=== PATIENT | female | born 2005 | race Caucasian/White ===

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

== ENCOUNTER 2025-03-15 08:13 | Outpatient (OUT) | payer OTHER, SELFPAY ==
--- OUTSIDE RECORDS SUMMARY | 2025-03-07 08:45 | XMS_ITS | Encounter Summary ---
Author Organization [employer] [facility] tem Address [id number] [address] [place] [address] Care Team Providers Care Chemical Analytical Sampler Name Role Phone Maggie Marlow MD Primary Care Provider + [phone] Reason for Visit * Reason Comments Routine Visit Encounter Details Date Type Department Care Team ([facility] st Contact Info) Description 03/07/2025 8:45 AM EDT Routine [facility] [address] [place] [id number] Shyann Lopez MD [address] [place] [id number] GA: 38w6d Social History Tobacco Use Types Packs/Day Years Used Date Smoking Tobacco: Never Passive Smoke Exposure: Yes Smokeless Tobacco: Never Alcohol Use Standard Drinks/Week Comments Never 0 (1 standard drink = 0.6 oz pur e alcohol) Childcare Answer Date Recorded Childcare Unknown 01/11/2019 Employment Answer Date Recorded Employment Unknown 01/11/2019 Hunger Screening Answer Date Recorded Within the past 12 months we worried whether our food would run out before we got money to buy more. Never True 03/07/2025 Within the past 12 months th e food we bought just didn't last and we didn't have money to get more. Never True 03/07/2025 Purpose - Life Answer Date Recorded Purpose and direction in life Unknown Comments Yes Sex and Gender Information Value Date Recorded Sex Assigned at Not on file Legal Sex Female 6:56 PM EDT Gender Identity Not on file Sexual Orientation Not on file documented as of this encounter Last Filed Vital Signs Vital Sign Reading Time Taken Comments Blood Pressure 122/68 03/07/2025 8:33 AM EDT Pulse - - Temperature - - Respiratory Rate - - Oxygen Saturation - - Inhaled Oxygen Concentration - - Weight 89.9 kg (198 lb 3.2 oz) 03/07/2025 8:33 A M EDT Height - - Body Mass Index 34 01/23/2025 1:48 PM EDT documented in this encounter Progress Notes * Shyann Lopez MD - 03/07/2025 8:45 AM EDT [facility] High Risk Obstetrics Visit Return OB CC: Scheduled OB Visit None Problem List Active Problems Cleft lip and palate, , affecting care of mother, antepartum, single gestation Overview Sent to [facility] craniofacial -NICU consult scheduled for 02/07/25- done -Growth US every 4 weeks - Growth 01/23/25: cephalic, posterior placenta, MVP 3.8cm, EFW 1813g (15%), AC 13% - growth 02/21/25: vertex, MVP 4.6cm, EFW 24% Delivery 39-40 weeks care, subsequent in third trimester - Primary Overview Transfer from [place] Initial and 28 week cbc, one hr gct completed Good FM. Denies Bleeding, SROM. Irregular contractions Denies persistent N/V, constipation, heartburn, hematuria, dysuria Problem List reviewed and updated PMH/PSH/FH/Soc/Meds/Allergies Reviewed PE BP 122/68 Wt 89.9 kg (198 lb 3.2 oz) LMP 05/27/2024 BMI 34.00 kg/m?? Alert, NAD ABdomen: Soft, NT, nondistended Cervix: 0/thick/-3 Cordwainer: Devora Wt Readings from Last 3 Encounters: 02/28/25 89.6 kg (197 lb 8 oz) (97%, Z= 1.90)* 02/21/25 87.1 kg (192 lb) (96%, Z= 1.81)* 02/07/25 86.8 kg (191 lb 6.4 oz) (96%, Z= 1.80)* * Growth percentiles are based on CDC (Girls, 2-20 Years) data. See flowsheet Urine dipstick shows Protein N Glucose N Imp/Plan at 38w5d Patient Active Problem List Diagnosis Cleft lip and palate, , affecting care of mother, antepartum, single gestation care, subsequent in third trimester Elevated blood-pressure reading without diagnosis of hypertension care Labor warnings/ Movement discussed cleft lip/palate Serial growth scans--completed For IOL at 39 weeks ([place]) Form completed and process discussed. Note to patient: The Cures Act makes medical notes like these available to patients inthe interest of transparency. However, be advised this is a medical document. It is intended as peer to peer communication. It is written in medical language and may contain abbreviations or verbiagethat are unfamiliar. It may appear blunt or direct. Medical documents are intended to carry relevant information, facts as evident, and the clinical opinion of the practitioner. * Devora Hanna RN - 03/07/2025 8:45 AM EDT Patient here at 38w6d for routine HROB visit. Denies LOF, bleeding, contractions. Positive movement. SVE performed today. IOL scheduled for tomorrow 03/08 at 3pm. No other concerns this visit. Urine dip: moderate leuks documented in this encounter Plan of Treatment Upcoming Encounters Date Type Department Care Team (Late st Contact Info) Description 03/19/2025 2:30 PM EDT Visit [facility] [address] [place] [phone] Shyann Lopez MD [address] [facility] [place] [phone] documented as of this encounter Visit Diagnoses Diagnosis Cleft lip and palate, , affecting care of mother, antepartum, single gestation- Primary care, subsequent in third trimester documented in this encounter Care Teams Chemical Analytical Sampler Relationship Specialty Start Date End Date Maggie Marlow MD [address] [place] [address] PCP - General Pediatrics 12/09/23 documented as of this encounter
--- OUTSIDE RECORDS SUMMARY | 2025-03-08 21:48 | XMS_ITS | Encounter Summary ---
Author Organization Dahu tem Address [id number] [address] [place] [address] Care Team Providers Care Facilities Administrator Name Role Phone Maggie Marlow MD Primary Care Provider + [phone] Reason for Referral * Misc (Routine) - Pending Review Specialty Diagnoses / Procedures Referred By Contac t Referred To Contact Procedures Discharge Follow-Up Beatriz Madrigal DO [address] [address] Phone: tel: fax: Referral ID Status Reason Start Date Expiration Date V isits Requested Visits Authorized [id number] Pending Review 03/12/2025 03/12/2026 1 1 * Misc (Routine) - Pending Review Specialty Diagnoses / Procedures Referred By Contac t Referred To Contact Procedures Discharge Follow-Up Lennie Bell MD [address] [address] Phone: tel: fax: Referral ID Status Reason Start Date Expiration Date V isits Requested Visits Authorized [id number] Pending Review 03/11/2025 03/11/2026 1 1 Reason for Visit * Reason Comments Scheduled Induction * Auth/Cert (Routine) Specialty Diagnoses / Procedures Referred By Lori t Referred To Contact Diagnoses Encounter for induction of labor Sebastian Jorgensen MD [facility], [address] [place] [address] Phone: tel: fax: Referral ID Status Reason Start Date Expiration Date Visits Re quested Visits Authorized [id number] 1 1 Encounter Details Date Type Department Care Team (Latest Contact Info) Description 03/08/2025 9:48 PM EDT - 03/12/2025 4:50 PM EDT Hospital Encounter [facility] [address] [place] [id number] Sebastian Jorgensen MD [address] [place] [address], [address] [place], [place] [id number] Gestational hypertension, third trimester (Primary Dx) Discharge Disposition: Home Social History Tobacco Use Types Packs/Day Years [...] got money to buy more. Never True 03/12/2025 Within the past 12 months th e food we bought just didn't last and we didn't have money to get more. Never True 03/12/2025 Purpose - Life Answer Date Recorded Purpose and direction in life Unknown Comments No Sex and Gender Information Value Date Recorded Sex Assigned at Not on file Legal Sex Female 6:56 PM EDT Gender Identity Not on file Sexual Orientation Not on file documented as of this encounter Last Filed Vital Signs Vital Sign Reading Time Taken Comments Blood Pressure 118/73 03/12/2025 11:24 AM EDT Pulse 85 03/12/2025 11:24 AM EDT Temperature 36.8 C (98.2 F) 03/12/2025 11:24 AM EDT Respiratory Rate 16 03/12/2025 11:24 AM EDT Oxygen Saturation 99% 03/10/2025 7:30 AM EDT Inhaled Oxygen Concentration - - Weight 84.5 kg (186 lb 4.6 oz) 03/12/2025 12:00 AM EDT Height 162.6 cm (5' 4.02 ) 03/09/2025 7:00 AM ED T Body Mass Index 31.96 03/09/2025 7:00 AM EDT documented in this encounter Functional Status documented as of this encounter Discharge Instructions * Discharge Instructions* Danisha Humphries RN - 03/12/2025 4:22 PM EDT Discharge Instructions Vaginal Bleeding Vaginal drainage, lochia , will last 2-3 weeks after your baby was born Use the jack bottle filled with warm water each time you use the bathroom, pat dry. Continue this until your drainage stops. Always wipe from front to back after you urinate or have a bowel movement Change your sanitary pad every 2-4 hours Notify your doctor/CNM if you experience any of the following: Clots larger than a plum If you are saturating a jack pad greater than one pad an hour Any foul smelling vaginal drainage Abdominal Cramping Cramping gets stronger with each baby. You may try a heating pad Bathing/Showering Take a shower each day unless you were told not to To help with episiotomy discomfort you may sit in a clean tub of warm water Stitches in your perineum will dissolve over 6 weeks, for comfort you may: Use a sitz bath Jack bottle Dermoplast (use each time after jack care) Tucks (use each time after jack care) Tucks and Dermoplast spray may also help with hemorrhoid discomfort (use each time after jack care) Sexual [place] No tampons, douching, or sexual intercourse until after you see your doctor You may need to use a water-soluble lubricant such as KY Jelly for dryness Talk to your doctor/CNM regarding control and which method would be best for you Talk to your doctor/CNM regarding the use of a long acting, but reversible, control method It is recommended to space pregnancies apart by at least 18 months, this is for the safety of future outcomes Notify your doctor if you have: Any vaginal burning or itching Any burning or pain when urinating, or inability to urinate A temperature greater than 100.4 degrees Fahrenheit or severe chills Pain in calf or leg Nausea or vomiting, dizziness or fainting If you have not had a bowel movement in 5 days Diet: Drink 8-12 glasses of water each day Make sure you eat a balanced diet, especially high in fiber (whole grains, raw vegetables, etc.) If drink 8 oz. of liquid every time you nurse your baby Continue to take your vitamins as prescribed by your doctor Abdominal Incision / Tubal Ligation Care: Wash your incision with soap and water and be sure to rinse and dry well If you had orin they will be removed by your doctor/CNM If you had sutures they will dissolve on their own For ease of movement hold a pillow against the incision: When you get up from a lying or sitting position When you laugh or cough Notify your doctor/CNM for any of the following: Redness Drainage Open areas around your incision Breast Care: To help with discomfort: Feed your baby frequently to avoid engorgement Apply warm compresses to breast before feeding Apply cold compresses to breast after feeding Wear a supportive nursing bra 24 hours a day Do not put soap on your nipples Allow nipples to air dry after feeding Bottle feeding: To help with discomfort: Use cold compresses Wear a tight fitting bra 24 hours a day Notify your doctor/CNM: For swelling, redness, or tenderness in one area of your breast Blues / Depression: Blues : Usually occurs within 3-5 days after delivery Normally goes away on its own Depression: Can also occur within days of delivery, or within a year Warning Signs: Increased crying for no obvious reason Lack of patience Being irritable Being restless Not being able to sleep Not wanting to eat Anxiety Notify your doctor/CNM: If you experience any of the warning signs If you are having any violent thoughts If you are having thoughts of harming yourself or your baby Sibling / Family Adjustment: Each family member will take different amounts of time to adjust to the new baby Be patient and offer lots of love and comfort Offer some individual attention to other children Exercise / Activity: Get plenty of rest Take catnaps while baby is sleeping during the day No heavy cleaning or other housework for the first couple of weeks Lift nothing heavier than your baby for 2 weeks No driving for one week Do not drive while taking narcotics You may start walking and stretching in 2 weeks No strenuous exercises like jogging, aerobics, etc. until after you have seen your doctor/CNM You may start Kegel exercises now * Attachments The following attachments cannot be sent through Care Everywhere. * Vaginal ??? Discharge instructions (Italian) * Coping while caring for a (Italian) documented in this encounter Medications at Time of Discharge acetaminophen (TYLENOL EXTRA STRENGTH) 500 mg tablet Take 2 tablets (1,000 mg total) by mouth every 8 (eight) hours as needed for pain. 30 tablet 03/11/2025 cyclobenzaprine (FLEXERIL) 10 mg tablet Take 1 tablet (10 mg total) by mouth 3 (three) times a day as needed for muscle spasms. 30 tablet 12/09/2023 docusate sodium (COLACE) 100 mg capsule Take 1 capsule (100 mg total) by mouth in the morning and 1 capsule (100 mg total) before bedtime. 12/29/2024 04/28/2025 famotidine (PEPCID) 20 mg tablet Take 1 tablet (20 mg total) by mouth in the morning and 1 tablet (20 mg total) before bedtime. 60 tablet 1 02/21/2025 ferrous sulfate 325 (65 FE) mg EC tablet Take 1 tablet (325 mg total) by mouth. 12/29/2024 12/29/2025 ibuprofen (MOTRIN) 800 mg tablet Take 1 tablet (800 mg total) by mouth every 8 (eight) hours as needed (cramping). 30 tablet 03/11/2025 no115/iron/folic acid ( 19 ORAL) Take by mouth. documented as of this encounter Progress Notes * Beatriz Madrigal, DO - 03/12/2025 7:02 AM EDT TRINY Daily Progress Note Subjective Everett Arielle Vivar is a 19 y.o. PPD#2 39w2d. Patient reports doing well. Pain is controlled with oral medications. Lochia minimal. She is voiding without difficulty. She has had flatus, and has not had a BM. She is ambulating without difficulty. She is bottle feeding. Baby doing well. Denies fever, chills, nausea, vomiting, headache, changes in vision, or RUQ pain. Has been afebrile. Objective: Temp: [36.4 ??C (97.5 ??F)-36.9 ??C (98.4 ??F)] 36.9 ??C (98.4 ??F) Pulse: [78-90] 83 Resp: [16-18] 17 Blood Pressure : (113-137)/(57-78) 113/64 O2 Device: None (Room air) Vitals: 03/11/25 1941 03/11/25 2350 03/12/25 0000 03/12/25 0448 BP: 124/67 120/65 113/64 Pulse: 85 90 83 Resp: 18 16 17 Temp: 36.4 ??C (97.5 ??F) 36.4 ??C (97.5 ??F) 36.9 ??C (98.4 ??F) TempSrc: Oral Oral Oral SpO2: Weight: 84.5 kg (186 lb 4.6 oz) Height: Rubella: No results found for: RUBELLAIMMU Physical Exam: General: alert, well appearing, in no apparent distress Abd: soft, appropriately tender, nondistended, and uterus firm below umbilicus Ext: no redness or tenderness in the calves or thighs, no edema Assessment/Plan: Everett Vivar is a 19 y.o. PPD#2 at 39w2d. gHTN BP < 140/90 HELLP labs wnl Asymptomatic Chorioamnionitis S/p amp, gent Tlast 03/10 0600 Routine PP care Encourage ambulation and incentive spirometry. A positive Hgb 10.3: Continue vitamin PP contraception: plans to follow up with primary Jacket Preparer for counseling Anticipate discharge home today. Beatriz Madrigal DO Jacket Preparer Resident, PGY-3 Cosigned by Sebastian Jorgensen MD at 03/12/2025 5:24 PM EDT Associated attestation - Sebastian Jorgensen MD - 03/12/2025 5:24 PM EDT Attending Attestation: I saw the patient. I performed the critical/abreu portions of the service. I was directly involved inthe management and treatment plan of the patient. I reviewed the resident's note. . Additional Notes/Findings: Results from last 7 days Lab Units 03/11/25 0715 03/08/25 2322 WBC x10E9/L 15.8* 11.3* HEMOGLOBIN g/dL 10.3* 10.9* HEMATOCRIT % 30.6* 32.3* PLATELETS X10E9/L 229 265 Results from last 7 days Lab Units 03/08/25 2322 POTASSIUM mmol/L 3.7 CHLORIDE mmol/L 106 CO2 mmol/L 23 BUN mg/dL 6 CREATININE mg/dL 0.67 CALCIUM mg/dL 9.1 ALK PHOS U/L 140* ALT U/L 9 AST U/L 9 day 2 vaginal delivery at 39 weeks doing well Gestational hypertension blood pressures less than 140/90 no medications stable Chorioamnionitis afebrile greater than 24 hours without symptoms and antibiotics Okay for discharge home follow up in 1 week for blood pressure check Signs and symptoms of preeclampsia reviewed with the patient * Brittney Hebert MD - 03/11/2025 6:29 AM EDT OBGYN Daily Progress Note Subjective Everett Vivar is a 19 y.o. PPD#1 at 39w2d. Patient reports doing well. Pain is controlled with oral medications. Lochia minimal. She is voiding without difficulty. She has had flatus,and has not had a BM. She is ambulating without difficulty. She is bottle feeding. Baby doing well.Denies fever, chills, nausea, vomiting, headache, changes in vision, or RUQ pain. Objective: Temp: [36.9 ??C (98.4 ??F)-38.2 ??C (100.8 ??F)] 37 ??C (98.6 ??F) Pulse: [86-133] 94 Resp: [16-18] 16 Blood Pressure : (112-152)/(60-88) 140/71 SpO2: [99 %-100 %] 99 % O2 Device: None (Room air) Vitals: 03/10/25 1907 03/11/25 0000 03/11/25 0004 03/11/25 0330 BP: 137/78 137/77 140/71 Pulse: 103 86 94 Resp: 18 16 16 Temp: 37.4 ??C (99.3 ??F) 37.3 ??C (99.1 ??F) 37 ??C (98.6 ??F) TempSrc: Axillary Oral Oral SpO2: Weight: 85.5 kg (188 lb 7.9 oz) Height: Rubella: No results found for: RUBELLAIMMU Physical Exam: General: alert, well appearing, in no apparent distress Abd: soft, appropriately tender, nondistended, and uterus firm below umbilicus Ext: no redness or tenderness in the calves or thighs, no edema Assessment/Plan: Everett Vivar is a 19 y.o. PPD#1 at 39w2d. Routine PP care: Encourage ambulation and incentive spirometry. A positive, Rubella immune: No, sp Tdap: Yes Hgb pending: Continue vitamin PP contraception: plans to follow up with primary Jacket Preparer for counseling Anticipate home today. Brittney Hebert MD Jacket Preparer Resident, PGY-1 Cosigned by Alyssa Luque MD at 03/11/2025 7:47 AM EDT Associated attestation - Alyssa Luque MD - 03/11/2025 7:47 AM EDT Attending Attestation: I saw the patient. I performed the critical/abreu portions of the service. I was directly involved inthe management and treatment plan of the patient. I reviewed the resident's note. Additional Notes/Findings: PPD#1 . Doing well, ambulating, voiding. Pt to consider home today, baby needs to undergo testing d/t cleft lip/palate per pt. Alyssa Luque MD * Lennie Bell MD - 03/10/2025 5:54 AM EDT Labor Progress Note SUBJECTIVE The patient reports vaginal pressure. SVE 7/90/+1. FHT showed two late decelerations that resolved with maternal repositioning. Positive scalp stimulation. OBJECTIVE Vitals Vitals: 03/10/25 0445 03/10/25 0500 03/10/25 0530 03/10/25 0545 BP: 124/70 146/83 148/81 132/82 Pulse: 99 104 109 98 Resp: 16 Temp: 37.4 ??C (99.3 ??F) TempSrc: Oral SpO2: 97% 99% 99% Height: Exam FHR: Baseline Rate A: 160 bpm, moderate variability, accelerations: present, decelerations: present, occasional late decels Mulberry: q2-4min SVE: Dilation: 7 Effacement (%): 90 Station: 1 Presentation: Vertex Method: Manual OB Examiner: Dr Bell ASSESSMENT & PLAN Pt is a 19 y.o. at 39w2d who admitted with mIOL due to cleft lip and palate Pain control: epidural FHR Tracing: Category II Overall reactive and reassuring, making appropriate cervical change Repositioning as needed Internal monitors in place Continue routine labor care with expectant management - Pitocin running per protocol Lennie Bell MD 03/10/25 Jacket Preparer Resident, PGY-3 Cosigned by Everett Marquis MD at 03/10/2025 6:35 AM EDT Associated attestation - Everett Rojas MD - 03/10/2025 6:35 AM EDT I reviewed the resident's note and discussed the case with the resident. This specific service willnot be billed. * Lennie Bell MD - 03/10/2025 2:28 AM EDT Labor Progress Note SUBJECTIVE The patient reports no complaints. FHT shows late decelerations. SVE 6/90/0. Positive scalp stimulation. OBJECTIVE Vitals Vitals: 03/10/25 0130 03/10/25 0145 03/10/25 0200 03/10/25 0215 BP: 128/65 129/75 128/77 120/78 Pulse: 85 93 92 100 Resp: Temp: TempSrc: SpO2: 98% 99% 99% 99% Height: Exam FHR: Baseline Rate A: 160 bpm, moderate variability, accelerations: present, decelerations: present [place]berry: q3min SVE: Dilation: 6 Effacement (%): 90 Station: 0 Presentation: Vertex Method: Manual OB Examiner: Dr Bell ASSESSMENT & PLAN Pt is a 19 y.o. at 39w2d who admitted with mIOL due to cleft lip and palate Pain control: epidural FHR Tracing: Category II IUPC in place, amnio running FSE placed Repositioning patient Continue routine labor care with expectant management - Pitocin running, currently at 7 mL/hr Lennie Blel MD 03/10/25 Jacket Preparer Resident, PGY-3 Cosigned by Everett Marquis MD at 03/10/2025 4:16 AM EDT Associated attestation - Leonid Marquis, Everett Prakash MD - 03/10/2025 4:16 AM EDT I reviewed the resident's note and discussed the case with the resident. This specific service willnot be billed. FHT with mod car, +accels, occasional early and variable decelerations. Cervix changing. Continue monitoring. * Lennie Bell MD - 03/10/2025 12:13 AM EDT Labor Progress Note SUBJECTIVE The patient reports no complaints. Comfortable with epidural. FHT showed occassional late decelerations, overall reassuring. SVE was the same. OBJECTIVE Vitals Vitals: 03/09/25 2300 03/09/25 2315 03/09/25 2330 03/09/25 2345 BP: 114/65 123/73 111/66 111/65 Pulse: 101 101 108 79 Resp: Temp: 37 ??C (98.6 ??F) TempSrc: Oral SpO2: Height: Exam FHR: Baseline Rate A: 130 bpm, moderate variability, accelerations: present, decelerations: present Mulberry: q2min SVE: Dilation: 5 Effacement (%): 90 Station: 0 Presentation: Vertex Method: Manual OB Examiner: Dr Bell ASSESSMENT & PLAN Pt is a 19 y.o. at 39w2d who admitted with mIOL due to cleft lip and palate Pain control: epidural FHR Tracing: Category I currently Would have occasional late decelerations in the past Nurse repositioned the patient and gave fluid bolus Amnioinfusion still running Continue routine labor care with expectant management - Pitocin running, currently at 7 mL/hr Lennie Bell MD 03/10/25 Jacket Preparer Resident, PGY-3 Cosigned by Everett Marquis MD at 03/10/2025 4:15 AM EDT Associated attestation - Everett Rojas MD - 03/10/2025 4:15 AM EDT I reviewed the resident's note and discussed the case with the resident. This specific service willnot be billed. * Lennie Bell MD - 03/09/2025 7:36 PM EDT Labor Progress Note SUBJECTIVE The patient reports no complaints. Comfortable with epidural. FHT showed intermittent decelerations. IUPC was placed. SVE was the same. Positive scalp stimulation OBJECTIVE Vitals Vitals: 03/09/25 1830 03/09/25 1845 03/09/25 1900 03/09/25 1915 BP: 108/53 (!) 109/44 145/79 140/74 Pulse: 70 71 81 78 Resp: 18 Temp: 36.9 ??C (98.4 ??F) TempSrc: Oral SpO2: Height: Exam FHR: Baseline Rate A: 135 bpm, moderate variability, accelerations: present, decelerations: present, combination of late and early decelerations Mulberry: q2-3min SVE: Dilation: 5 Effacement (%): 80 Station: 0 Presentation: Vertex Method: Manual OB Examiner: Dr. Uribe (Dr. Uribe) ASSESSMENT & PLAN Pt is a 19 y.o. at 39w1d who admitted with mIOL due to cleft lip and palate Pain control: epidural FHR Tracing: Category II IUPC in place Nurse is repositioning the patient Will continue to monitor and decrease pitocin if needed Continue routine labor care with expectant management - Pitocin running, currently at 14 mL/hr Lennie Bell MD 03/09/25 Jacket Preparer Resident, PGY-2 Cosigned by Everett Marquis MD at 03/10/2025 12:01 AM EDT Associated attestation - Everett Rojas MD - 03/10/2025 12:01 AM EDT I reviewed the resident's note and discussed the case with the resident. This specific service willnot be billed. Additional findings/notes: FHT category 1 and intermittent category 2. Overall reassuring. * Brittney Hebert MD - 03/09/2025 12:07 PM EDT Labor Progress Note SUBJECTIVE The patient reports she is doing well, no complains at this time. OBJECTIVE Vitals Vitals: 03/09/25 0900 03/09/25 1000 03/09/25 1100 03/09/25 1200 BP: 151/65 122/69 129/57 131/71 Pulse: 80 78 105 78 Resp: 16 17 16 16 Temp: 36.4 ??C (97.5 ??F) TempSrc: Oral Height: Exam FHR: Baseline Rate A: 130 bpm, moderate variability, accelerations: present, decelerations: absent Mulberry: 3-4/ 10 minutes SVE: Dilation: 4 Effacement (%): 70 Station: -2 Presentation: Vertex Method: Manual OB Examiner: Randi Andujar RNRETAIL BUSINESS DEVELOPMENT MANAGER & PLAN Pt is a 19 y.o. at 39w1d who admitted with mIOL due to cleft lip and palate Pain control: s/p Nubain given at 0420 FHR Tracing: Category I Continue routine labor care with expectant management - S/p cook balloon. Taken out at 1150, patient tolerated well and made great cervical change with cook balloon - Pitocin running, currently at 11 mL/hr - will continue to monitor patient Brittney Hebert MD 03/09/25 Jacket Preparer Resident, PGY-1 Cosigned by Estefani Wiggins DO at 03/09/2025 12:13 PM EDT Associated attestation - Estefani Wiggins DO - 03/09/2025 12:13 PM EDT agree * Prosper Danielle MD - 03/09/2025 5:47 AM EDT Labor Progress Note SUBJECTIVE Cook balloon in place, patient s/p nubain x2 for pain control. OBJECTIVE Vitals Vitals: 03/09/25 0200 03/09/25 0300 03/09/25 0400 03/09/25 0500 BP: 131/71 (!) 124/96 113/70 116/65 Pulse: 86 85 90 72 Resp: 15 Temp: 36.7 ??C (98.1 ??F) TempSrc: Oral Exam FHR: Baseline Rate A: 135 bpm, moderate variability, accelerations: present, decelerations: absent [place]berry: q4min SVE: Dilation: 0.5 Effacement (%): 50 Station: -2 Presentation: Vertex Method: Manual OB Examiner: Dr. Danielle ASSESSMENT & PLAN Pt is a 19 y.o. at 39w1d who admitted with mIOL d/t cleft lip and palate Pain control: s/p Nubain x2 FHR Tracing: Category I Continue routine labor care with expectant management - cook balloon in place - Pitocin running, currently at 6 mL/hr Prosper Danielle MD 03/09/25 Jacket Preparer Resident, PGY-4 Cosigned by Jv Sosa MD at 03/09/2025 7:19 AM EDT Associated attestation - Jv Sosa MD - 03/09/2025 7:19 AM EDT I have examined the note and agree with the plan for this patient documented in this encounter H&P Notes * Prosper Danielle MD - 03/08/2025 11:40 PM EDT ObGyn History and Physical Chief Complaint: intrauterine SUBJECTIVE HPI Everett Vivar is a 19 y.o. @ 39w0d who presents with mIOL d/t cleft lip/palate. complicated by: 1. Cleft lip/palate 2. gHTN (new dx) Patient is doing well. Reports no contractions, positive movement, no loss of fluid. No nausea/vomiting, headache, blurry vision, RUQ pain, chest pain. Review of Systems - 14-point review of systems negative except as noted above Allergies Allergies Allergen Reactions Grass Pollen Shrimp ObGyn Hx OB History Para Term AB Living 2 0 0 0 1 0 SAB IAB Ectopic Multiple Live Births 1 0 0 0 0 # Outcome Date GA Lbr Brandan/2nd Weight Sex Type Anes PTL Lv 2 Current 1 SAB Medical Hx History reviewed. No pertinent past medical history. Surgical Hx No past surgical history on file. Family Hx No family history on file. Psychosocial Social History Socioeconomic History Marital status: Single Tobacco Use Smoking status: Never Passive exposure: Yes Smokeless tobacco: Never Vaping Use Vaping status: Former Substance and Sexual Activity Alcohol use: Never Drug use: Not Currently Types: Marijuana Sexual activity: Yes Partners: Male Social Drivers of Health Food Insecurity: No Food Insecurity (03/07/2025) Hunger Screening Food Insecurity - Worry: Never True Food Insecurity - Inability: Never True OBJECTIVE Vitals Vitals: 03/08/25 2157 03/08/25 2230 03/08/25 2245 03/08/25 2300 BP: 143/84 140/79 146/87 129/82 Pulse: 99 93 102 97 Resp: 16 Temp: 36.9 ??C (98.4 ??F) TempSrc: Oral Physical Exam: Gen: NAD Abd: gravid, nontender Ext: no edema or redness in bilateral LE Neuro: AAOx3 SVE: Dilation: 0.5 Effacement (%): 50 Station: -2 Presentation: Vertex Method: Manual OB Examiner: Dr. Danielle FHT: Baseline Rate A: 135 bpm, moderate variability, present acceleration, absent decelerations Mulberry: none Labs ABO/Rh: Lab Results Component Value Date ABOINTEP A 03/09/2024 ABOINTEP A 03/09/2024 RHINTEP Positive 03/09/2024 RHINTEP Positive 03/09/2024 Group B Strep: Lab Results Component Value Date CULTURE 02/21/2025 NEGATIVE FOR GROUP B STREPTOCOCCUS BY NUCLEIC ACID AMPLIFICATION Rubella: No results found for: RUBELLAIMMU Hepatitis B Surface Antigen: No results found for: HEPBSAG HIV: No results found for: HIV4 Total Syphilis: No results found for: SYPHILISTOT ASSESSMENT & PLAN Everett Vivar is a 19 y.o. @ 39w0d who presents for IOL 1. Intrauterine @ 39w0d here for scheduled MIOL - Admit to labor and delivery - BSUS showed cephalic presentation - CBC - Type and screen - Urine drug screen - Induction: pitocin per protocol - Cervical ripening via cook balloon - Risks/benefits/alternatives explained to patient who stated understanding and consent 2. FHT: Reactive and reassuring - Continuous external monitoring 3. Fluids/electrolytes/nutrition - Clear liquid diet - 125 ml/hr IVF lactated ringers 4. Rh+/RI/GBS-/no Tdap 5. Pain - Tylenol 650 mg q4h PO - Nubain 5-10 mg IV q1h/Morphine IV prn pain - Patient may have epidural 6. gHTN - Elevated BP in office - BP today 143/84 - HELLP labs ordered Prosper Danielle MD Jacket Preparer Resident, PGY-4 Cosigned by Jv Sosa MD at 03/09/2025 2:21 AM EDT Associated attestation - Jv Sosa MD - 03/09/2025 2:21 AM EDT I have examined the note and agree with the plan for this patient documented in this encounter Nursing Notes * Danisha Humphries RN - 03/12/2025 4:50 PM EDT Patient discharged to home with all belongings in seemingly good health. Ambulated off unit with infant in car seat and FOB. Jack supplies and gift pack given. Verbalized understanding of discharge instructions again. Agreeable to follow up visit with OBGYN. Patient left via personal vehicleto home. * Danisha Humphries RN - 03/12/2025 4:38 PM EDT AVS printed, discussed, signed, and copy given to patient. Patient verbalizes understanding of discharge instructions. No further questions at this time. * Priscila Holt RN - 03/12/2025 6:16 AM EDT I have reviewed the charting of Shruthi Tijerina RN documented in this encounter Miscellaneous Notes * Discharge Planning Note - JIMMY Martinez - 03/12/2025 12:12 PM EDT DISCHARGE PLANNING NOTE Chart reviewed and spoke with RN. Met with pt and FOB at bedside, introduced self and explained role. Noted pt is delivered baby girl on 03/10 at 39w2d, weighing 6lb 7.4oz, apgars 8 and 9. Verified demographics on Facesheet are correct. Pt stated they have all supplies needed for baby including car seat and safe sleep and declines needing any further supplies. Pt to follow up with WIC. Pt identifies FOB, family, and friends as supportive. Pt denies any concern for depression or anxiety throughout . Pt aware of signs and symptoms of post depression and feels comfortable reaching out to appropriate providers as needed. Handout on post depression provided in yellow fol ramon. Handout on maternal mental health hotline provided. Pt declines needing any additional resources. UDS negative at delivery, +THC 3/5 no continued use. Pt declines any further needs at this time. Support provided and all questions answered. * Plan of Care - Danisha Humphries RN - 03/12/2025 12:00 PM EDT Problem: Pain Goal: Patient goal is pain score less than 4, able to rest, and participant in treatment plan as appropriate Description: INTERVENTIONS: 1. Encourage patient or legal client representative to report early pain and ask for pain medicine when needed 2. Assess pain using appropriate pain scale and include the scale used when documenting 3. Administer analgesics based on type and severity of pain and evaluate response within appropriate time frame 4. Implement non-pharmacological measures as appropriate and evaluate response 5. Consider cultural and social influences on pain and pain management 6. Notify LIP if interventions ineffective or patient reports new pain 7. Monitor vital signs including pulse ox, end-tidal CO2 based on pain intervention 8. Reassess pain per policy 9. Teach patient or legal client representative interventions for comforting Outcome: Progressing Note: Evaluation of progress towards goal: Patient verbalizes pain maintained with pain medication ordered. Problem: Safety Goal: Patient will be injury free during hospitalization Description: INTERVENTIONS: 1. Assess patient's risk for falls and implement fall prevention plan of care per policy 2. Provide and maintain a safe environment 3. Proper use of double Identifiers 4. Medication administration using the 5 rights 5. Hand hygiene 6. Specimens are labeled at the bedside 7. Instruct patient/ patient client representative about use of safety devices 8. Include patient/ patient client representative in decisions related to safety Outcome: Progressing Note: Evaluation of progress towards goal: Safety maintained. Problem: Infection Goal: Absence of infection during hospitalization Description: INTERVENTIONS 1. Assess and monitor for signs and symptoms of infection. 2. Monitor lab/diagnostic results. 3. Monitor all insertion sites i.e., indwelling lines, tubes and drains. 4. Monitor endotracheal (as able) and nasal secretions for changes in amount and color. 5. Administer medications as ordered. 6. Instruct and encourage patient and family to use good hand hygiene technique. 7. Identify and instruct patient/patient client representative in use of appropriate isolation precautionsfor identified infection/symptoms. 8. Provide and discuss with patient/patient client representative on educational MDRO sheet. 9. Encourage and monitor nutritional status daily and consult crime scene specialist if indicated. 10. Implement neutropenic guidelines as needed. Outcome: Progressing Note: Evaluation of progress towards goal: No signs/symptoms of infection noted. Please see vitals in flowsheet. Problem: Knowledge Deficit Goal: Patient/patient client representative demonstrates understanding of disease process, treatment plan,medications, and discharge instructions Description: INTERVENTIONS 1. Complete learning assessment and assess knowledge base 2. Provide teaching at level of understanding 3. Provide teaching via preferred learning method(s) Outcome: Progressing Note: Evaluation of progress towards goal: Patient voices and demonstrates understanding of self care. Asks appropriate questions as they arise. Problem: Discharge Planning Goal: Discharge to post-acute care, other facility, or home with appropriate resources Description: Patient's goal is: INTERVENTIONS 1. Conduct assessment to determine patient/family and health care team treatment goals, and need for post-acute services based on payer coverage, community resources, and patient preferences, and barriers to discharge 2. Coordinate with Social work, Care Navigation, and Utilization Review to arrange appropriate level of services according to patient's needs based on patient preference and payer coverage in collaboration with the physician and health care team 3. Address psychosocial, clinical, and financial barriers to discharge as identified in assessment in conjunction with the patient/family and health care team 4. Consult appropriate ancillary services (i.e.. PT/OT/ST, etc) as needed 5. Communicate with and update the patient/family, physician, and health care team regarding progress on the discharge plan 6. Identify discharge learning needs (meds, wound care, etc). 7. Arrange for needed discharge transportation as appropriate Outcome: Progressing Note: Evaluation of progress towards goal: Plan to discharge to home. Discharge needs will be assessed throughout stay. Problem: Moderate - High Risk Fall Score Description: Nolan Fall Score of =/> 25 or indicated by [facility] Assessment Goal: Patient should be free from fall Description: Interventions: 1. [place] to environment 2. Hourly rounds addressing the 4 P's (Pain, Positioning, Possessions, Potty) 3. Clear area of hazards (spills, clutter, electrical cords, unnecessary equipment) 4. Place equipment (bed & TV controls, call light, phone, urinal) within reach 5. Encourage patient to wear glasses and hearing aides as appropriate 6. Maintain bed in lowest position 7. Lock wheels on bed/wheelchair 8. Provide adequate lighting, including night light 9. Assess need for additional bedding, food/fluids, pain med's prior to sleep/routinely 10. Provide gripper slippers or personal non-skid footwear 11. Teach patient and patient client representative to maintain environment for safety and engage in all aspects of fall prevention program 12. Remind patient to call for help before getting out of bed 13. Initiate bed/chair/exit alarms supportive devices as appropriate, (chair wedge, no-skid floor mat, raised edge mattress, hip protectors) 14. Locate patient bed assignment for optimal visualization 15. Evaluate and identify Safe Patient Handling Equipment needs 16. Provide supervision when out of bed or chair 17. Utilize gait belt as needed to assist with ambulation 18. Place adaptive equipment (cane, walker) within reach 19. Request patient client representative bring adaptive equipment/mobility aids from home or obtain and provide as needed 20. Consult pharmacy regarding effects of med's affecting mobility, cognition, and alternatives 21. Obtain physician order for PT if risk factors associated with mobility are present 22. Obtain physician order for OT as appropriate 23. Utilize diversional activities 24. Educate patient and patient client representative how to maintain a safe environment during visitationtimes (notify nurse prior to leaving bedside) 25. Consider appropriateness of medical or non-er medical technician 26. Set up voiding schedule as appropriate (every 2 hours) Outcome: Progressing Note: Evaluation of progress towards goal: Patient free from falls, safety maintained. Problem: Potential for Compromised Skin Integrity Goal: Skin integrity is maintained or improved Description: Patient's goal is: INTERVENTIONS 1. Perform initial skin assessment on admission and as needed 2. Turn patient every 2 hours and PRN 3. Relieve pressure to bony prominences 4. Avoid shearing 5. Keep skin clean and dry 6. Alternate a full bath with partial baths for elderly 7. Apply lotion/moisturizer on skin 8. Monitor patient's hygiene practices 9. Float heels 10. Collaborate with interdisciplinary team and initiate plans and interventions as needed Outcome: Progressing Note: Evaluation of progress towards goal: Skin intact, no skin breakdown noted. Goal: Patient's nutritional intake is adequate Description: Patient's goal is: INTERVENTIONS 1. Assess and monitor food intake and supplements, patient food preferences, nausea, vomiting, labs, oral cavity (gums, teeth, tongue, mucosa), proper denture fit, and cultural beliefs 2. Monitor for signs of hypoglycemia and hyperglycemia 3. Collaborate with interdisciplinary team and initiate plan and interventions as ordered 4. Monitor patient's weight 5. Assist patient with meals/food selection 6. Assist patient with eating 7. Allow adequate time for meals 8. Provide pleasant environment during mealtime 9. Increase social contact during mealtimes 10. Plan activities to conserve energy 11. Encourage/perform oral hygiene as appropriate 12. Encourage patient to take dietary supplement as ordered 13. Collaborate with clinical crime scene specialist 14. Include patient/ patient's client representative in decisions related to nutrition Outcome: Progressing Note: Evaluation of progress towards goal: Patient has adequate intake. Tolerating diet as ordered. Problem: Hypertension during Goal: Patient will have blood pressures within normal limits Description: INTERVENTIONS 1. Monitor blood pressures as ordered (>90/60, <140/100) 2. Monitor intake and output (urinout output >30 ml/hr.) 3. Monitor daily weight 4. Monitor for edema, especially ankles, fingers and face Outcome: Progressing Note: Evaluation of progress towards goal: Blood pressures are WNL at this time Problem: Vaginal Delivery - Recovery and Goal: Patient will resume normal bowel function Description: INTERVENTION 1. Instruct regarding normal bowel function resumption Outcome: Progressing Note: Evaluation of progress towards goal: pt is taking stool softener 2x daily, ambulating and drinking water Additional Comments: * Plan of Care - Renay Tijerina RN - 03/11/2025 10:33 PM EDT Problem: Pain Goal: Patient goal is pain score less than 4, able to rest, and participant in treatment plan as appropriate Description: INTERVENTIONS: 1. Encourage patient or legal client representative to report early pain and ask for pain medicine when needed 2. Assess pain using appropriate pain scale and include the scale used when documenting 3. Administer analgesics based on type and severity of pain and evaluate response within appropriate time frame 4. Implement non-pharmacological measures as appropriate and evaluate response 5. Consider cultural and social influences on pain and pain management 6. Notify LIP if interventions ineffective or patient reports new pain 7. Monitor vital signs including pulse ox, end-tidal CO2 based on pain intervention 8. Reassess pain per policy 9. Teach patient or legal client representative interventions for comforting Outcome: Progressing Note: Evaluation of progress towards goal: Patient displays adequate comfort level at this time, pain medications available as ordered and nonpharmacologic interventions available. Problem: Safety Goal: Patient will be injury free during hospitalization Description: INTERVENTIONS: 1. Assess patient's risk for falls and implement fall prevention plan of care per policy 2. Provide and maintain a safe environment 3. Proper use of double Identifiers 4. Medication administration using the 5 rights 5. Hand hygiene 6. Specimens are labeled at the bedside 7. Instruct patient/ patient client representative about use of safety devices 8. Include patient/ patient client representative in decisions related to safety Outcome: Progressing Note: Evaluation of progress towards goal: Patient remains free from injury. Problem: Infection Goal: Absence of infection during hospitalization Description: INTERVENTIONS 1. Assess and monitor for signs and symptoms of infection. 2. Monitor lab/diagnostic results. 3. Monitor all insertion sites i.e., indwelling lines, tubes and drains. 4. Monitor endotracheal (as able) and nasal secretions for changes in amount and color. 5. Administer medications as ordered. 6. Instruct and encourage patient and family to use good hand hygiene technique. 7. Identify and instruct patient/patient client representative in use of appropriate isolation precautionsfor identified infection/symptoms. 8. Provide and discuss with patient/patient client representative on educational MDRO sheet. 9. Encourage and monitor nutritional status daily and consult crime scene specialist if indicated. 10. Implement neutropenic guidelines as needed. Outcome: Progressing Note: Evaluation of progress towards goal: No s/s of infection. Problem: Knowledge Deficit Goal: Patient/patient client representative demonstrates understanding of disease process, treatment plan,medications, and discharge instructions Description: INTERVENTIONS 1. Complete learning assessment and assess knowledge base 2. Provide teaching at level of understanding 3. Provide teaching via preferred learning method(s) Outcome: Progressing Note: Evaluation of progress towards goal: Patient displays adequate understanding of education provided. Patient asks questions as they arise. Problem: Discharge Planning Goal: Discharge to post-acute care, other facility, or home with appropriate resources Description: Patient's goal is: INTERVENTIONS 1. Conduct assessment to determine patient/family and health care team treatment goals, and need for post-acute services based on payer coverage, community resources, and patient preferences, and barriers to discharge 2. Coordinate with Social work, Care Navigation, and Utilization Review to arrange appropriate level of services according to patient's needs based on patient preference and payer coverage in collaboration with the physician and health care team 3. Address psychosocial, clinical, and financial barriers to discharge as identified in assessment in conjunction with the patient/family and health care team 4. Consult appropriate ancillary services (i.e.. PT/OT/ST, etc) as needed 5. Communicate with and update the patient/family, physician, and health care team regarding progress on the discharge plan 6. Identify discharge learning needs (meds, wound care, etc). 7. Arrange for needed discharge transportation as appropriate Outcome: Progressing Note: Evaluation of progress towards goal: Discharge needs being evaluated. Problem: Moderate - High Risk Fall Score Description: Nolan Fall Score of =/> 25 or indicated by [facility] Assessment Goal: Patient should be free from fall Description: Interventions: 1. [place] to environment 2. Hourly rounds addressing the 4 P's (Pain, Positioning, Possessions, Potty) 3. Clear area of hazards (spills, clutter, electrical cords, unnecessary equipment) 4. Place equipment (bed & TV controls, call light, phone, urinal) within reach 5. Encourage patient to wear glasses and hearing aides as appropriate 6. Maintain bed in lowest position 7. Lock wheels on bed/wheelchair 8. Provide adequate lighting, including night light 9. Assess need for additional bedding, food/fluids, pain med's prior to sleep/routinely 10. Provide gripper slippers or personal non-skid footwear 11. Teach patient and patient client representative to maintain environment for safety and engage in all aspects of fall prevention program 12. Remind patient to call for help before getting out of bed 13. Initiate bed/chair/exit alarms supportive devices as appropriate, (chair wedge, no-skid floor mat, raised edge mattress, hip protectors) 14. Locate patient bed assignment for optimal visualization 15. Evaluate and identify Safe Patient Handling Equipment needs 16. Provide supervision when out of bed or chair 17. Utilize gait belt as needed to assist with ambulation 18. Place adaptive equipment (cane, walker) within reach 19. Request patient client representative bring adaptive equipment/mobility aids from home or obtain and provide as needed 20. Consult pharmacy regarding effects of med's affecting mobility, cognition, and alternatives 21. Obtain physician order for PT if risk factors associated with mobility are present 22. Obtain physician order for OT as appropriate 23. Utilize diversional activities 24. Educate patient and patient client representative how to maintain a safe environment during visitationtimes (notify nurse prior to leaving bedside) 25. Consider appropriateness of medical or non-er medical technician 26. Set up voiding schedule as appropriate (every 2 hours) Outcome: Progressing Note: Evaluation of progress towards goal: Patient remains free from falls. Problem: Potential for Compromised Skin Integrity Goal: Skin integrity is maintained or improved Description: Patient's goal is: INTERVENTIONS 1. Perform initial skin assessment on admission and as needed 2. Turn patient every 2 hours and PRN 3. Relieve pressure to bony prominences 4. Avoid shearing 5. Keep skin clean and dry 6. Alternate a full bath with partial baths for elderly 7. Apply lotion/moisturizer on skin 8. Monitor patient's hygiene practices 9. Float heels 10. Collaborate with interdisciplinary team and initiate plans and interventions as needed Outcome: Progressing Note: Evaluation of progress towards goal: Skin integrity is maintained. Goal: Patient's nutritional intake is adequate Description: Patient's goal is: INTERVENTIONS 1. Assess and monitor food intake and supplements, patient food preferences, nausea, vomiting, labs, oral cavity (gums, teeth, tongue, mucosa), proper denture fit, and cultural beliefs 2. Monitor for signs of hypoglycemia and hyperglycemia 3. Collaborate with interdisciplinary team and initiate plan and interventions as ordered 4. Monitor patient's weight 5. Assist patient with meals/food selection 6. Assist patient with eating 7. Allow adequate time for meals 8. Provide pleasant environment during mealtime 9. Increase social contact during mealtimes 10. Plan activities to conserve energy 11. Encourage/perform oral hygiene as appropriate 12. Encourage patient to take dietary supplement as ordered 13. Collaborate with clinical crime scene specialist 14. Include patient/ patient's client representative in decisions related to nutrition Outcome: Progressing Note: Evaluation of progress towards goal: Nutritional intake is adequate Problem: Hypertension during Goal: Patient will have blood pressures within normal limits Description: INTERVENTIONS 1. Monitor blood pressures as ordered (>90/60, <140/100) 2. Monitor intake and output (urinout output >30 ml/hr.) 3. Monitor daily weight 4. Monitor for edema, especially ankles, fingers and face Outcome: Progressing Note: Evaluation of progress towards goal: Blood pressures WNL and monitored Q4 hours and prn. Patient displays no s/s of hypertension Additional Comments: * Plan of Care - June Lopez RN - 03/11/2025 10:45 AM EDT Problem: Pain Goal: Patient goal is pain score less than 4, able to rest, and participant in treatment plan as appropriate Description: INTERVENTIONS: 1. Encourage patient or legal client representative to report early pain and ask for pain medicine when needed 2. Assess pain using appropriate pain scale and include the scale used when documenting 3. Administer analgesics based on type and severity of pain and evaluate response within appropriate time frame 4. Implement non-pharmacological measures as appropriate and evaluate response 5. Consider cultural and social influences on pain and pain management 6. Notify LIP if interventions ineffective or patient reports new pain 7. Monitor vital signs including pulse ox, end-tidal CO2 based on pain intervention 8. Reassess pain per policy 9. Teach patient or legal client representative interventions for comforting Outcome: Progressing Note: Evaluation of progress towards goal: Patient verbalized adequate comfort level. Patient remains injury free. Patient shows no signs or syptomsof infection. Patients vitals are within normal limits. Patient verbalizes understanding of daily care plan. Patient to be discharged to home. Patient r emains free from falls. Patients fundus is firm @ midline and able to empty bladder. Patients vitals taken every four hours , I&O, reflexes, and daily weight. Patient has optimal breast milk supply and verbalized she is not comfortable . Educated patient on the benefits of for mother and patient verbalized understanding request to formula feed . Will continue to monitor. Problem: Safety Goal: Patient will be injury free during hospitalization Description: INTERVENTIONS: 1. Assess patient's risk for falls and implement fall prevention plan of care per policy 2. Provide and maintain a safe environment 3. Proper use of double Identifiers 4. Medication administration using the 5 rights 5. Hand hygiene 6. Specimens are labeled at the bedside 7. Instruct patient/ patient client representative about use of safety devices 8. Include patient/ patient client representative in decisions related to safety Outcome: Progressing Note: Evaluation of progress towards goal: Patient verbalized adequate comfort level. Patient remains injury free. Patient shows no signs or syptomsof infection. Patients vitals are within normal limits. Patient verbalizes understanding of daily care plan. Patient to be discharged to home. Patient r emains free from falls. Patients fundus is firm @ midline and able to empty bladder. Patients vitals taken every four hours , I&O, reflexes, and daily weight. Patient has optimal breast milk supply and verbalized she is not comfortable . Educated patient on the benefits of for mother and patient verbalized understanding request to formula feed . Will continue to monitor. Problem: Infection Goal: Absence of infection during hospitalization Description: INTERVENTIONS 1. Assess and monitor for signs and symptoms of infection. 2. Monitor lab/diagnostic results. 3. Monitor all insertion sites i.e., indwelling lines, tubes and drains. 4. Monitor endotracheal (as able) and nasal secretions for changes in amount and color. 5. Administer medications as ordered. 6. Instruct and encourage patient and family to use good hand hygiene technique. 7. Identify and instruct patient/patient client representative in use of appropriate isolation precautionsfor identified infection/symptoms. 8. Provide and discuss with patient/patient client representative on educational MDRO sheet. 9. Encourage and monitor nutritional status daily and consult crime scene specialist if indicated. 10. Implement neutropenic guidelines as needed. Outcome: Progressing Note: Evaluation of progress towards goal: Patient verbalized adequate comfort level. Patient remains injury free. Patient shows no signs or syptomsof infection. Patients vitals are within normal limits. Patient verbalizes understanding of daily care plan. Patient to be discharged to home. Patient r emains free from falls. Patients fundus is firm @ midline and able to empty bladder. Patients vitals taken every four hours , I&O, reflexes, and daily weight. Patient has optimal breast milk supply and verbalized she is not comfortable . Educated patient on the benefits of for mother and patient verbalized understanding request to formula feed . Will continue to monitor. Problem: Knowledge Deficit Goal: Patient/patient client representative demonstrates understanding of disease process, treatment plan,medications, and discharge instructions Description: INTERVENTIONS 1. Complete learning assessment and assess knowledge base 2. Provide teaching at level of understanding 3. Provide teaching via preferred learning method(s) Outcome: Progressing Note: Evaluation of progress towards goal: Patient verbalized adequate comfort level. Patient remains injury free. Patient shows no signs or syptomsof infection. Patients vitals are within normal limits. Patient verbalizes understanding of daily care plan. Patient to be discharged to home. Patient r emains free from falls. Patients fundus is firm @ midline and able to empty bladder. Patients vitals taken every four hours , I&O, reflexes, and daily weight. Patient has optimal breast milk supply and verbalized she is not comfortable . Educated patient on the benefits of for mother and patient verbalized understanding request to formula feed . Will continue to monitor. Problem: Discharge Planning Goal: Discharge to post-acute care, other facility, or home with appropriate resources Description: Patient's goal is: INTERVENTIONS 1. Conduct assessment to determine patient/family and health care team treatment goals, and need for post-acute services based on payer coverage, community resources, and patient preferences, and barriers to discharge 2. Coordinate with Social work, Care Navigation, and Utilization Review to arrange appropriate level of services according to patient's needs based on patient preference and payer coverage in collaboration with the physician and health care team 3. Address psychosocial, clinical, and financial barriers to discharge as identified in assessment in conjunction with the patient/family and health care team 4. Consult appropriate ancillary services (i.e.. PT/OT/ST, etc) as needed 5. Communicate with and update the patient/family, physician, and health care team regarding progress on the discharge plan 6. Identify discharge learning needs (meds, wound care, etc). 7. Arrange for needed discharge transportation as appropriate Outcome: Progressing Note: Evaluation of progress towards goal: Patient verbalized adequate comfort level. Patient remains injury free. Patient shows no signs or syptomsof infection. Patients vitals are within normal limits. Patient verbalizes understanding of daily care plan. Patient to be discharged to home. Patient r emains free from falls. Patients fundus is firm @ midline and able to empty bladder. Patients vitals taken every four hours , I&O, reflexes, and daily weight. Patient has optimal breast milk supply and verbalized she is not comfortable . Educated patient on the benefits of for mother and patient verbalized understanding request to formula feed . Will continue to monitor. Problem: Moderate - High Risk Fall Score Description: Nolan Fall Score of =/> 25 or indicated by [facility] Assessment Goal: Patient should be free from fall Description: Interventions: 1. [place] to environment 2. Hourly rounds addressing the 4 P's (Pain, Positioning, Possessions, Potty) 3. Clear area of hazards (spills, clutter, electrical cords, unnecessary equipment) 4. Place equipment (bed & TV controls, call light, phone, urinal) within reach 5. Encourage patient to wear glasses and hearing aides as appropriate 6. Maintain bed in lowest position 7. Lock wheels on bed/wheelchair 8. Provide adequate lighting, including night light 9. Assess need for additional bedding, food/fluids, pain med's prior to sleep/routinely 10. Provide gripper slippers or personal non-skid footwear 11. Teach patient and patient client representative to maintain environment for safety and engage in all aspects of fall prevention program 12. Remind patient to call for help before getting out of bed 13. Initiate bed/chair/exit alarms supportive devices as appropriate, (chair wedge, no-skid floor mat, raised edge mattress, hip protectors) 14. Locate patient bed assignment for optimal visualization 15. Evaluate and identify Safe Patient Handling Equipment needs 16. Provide supervision when out of bed or chair 17. Utilize gait belt as needed to assist with ambulation 18. Place adaptive equipment (cane, walker) within reach 19. Request patient client representative bring adaptive equipment/mobility aids from home or obtain and provide as needed 20. Consult pharmacy regarding effects of med's affecting mobility, cognition, and alternatives 21. Obtain physician order for PT if risk factors associated with mobility are present 22. Obtain physician order for OT as appropriate 23. Utilize diversional activities 24. Educate patient and patient client representative how to maintain a safe environment during visitationtimes (notify nurse prior to leaving bedside) 25. Consider appropriateness of medical or non-er medical technician 26. Set up voiding schedule as appropriate (every 2 hours) Outcome: Progressing Note: Evaluation of progress towards goal: Patient verbalized adequate comfort level. Patient remains injury free. Patient shows no signs or syptomsof infection. Patients vitals are within normal limits. Patient verbalizes understanding of daily care plan. Patient to be discharged to home. Patient r emains free from falls. Patients fundus is firm @ midline and able to empty bladder. Patients vitals taken every four hours , I&O, reflexes, and daily weight. Patient has optimal breast milk supply and verbalized she is not comfortable . Educated patient on the benefits of for mother and patient verbalized understanding request to formula feed . Will continue to monitor. Problem: Potential for Compromised Skin Integrity Goal: Skin integrity is maintained or improved Description: Patient's goal is: INTERVENTIONS 1. Perform initial skin assessment on admission and as needed 2. Turn patient every 2 hours and PRN 3. Relieve pressure to bony prominences 4. Avoid shearing 5. Keep skin clean and dry 6. Alternate a full bath with partial baths for elderly 7. Apply lotion/moisturizer on skin 8. Monitor patient's hygiene practices 9. Float heels 10. Collaborate with interdisciplinary team and initiate plans and interventions as needed Outcome: Progressing Note: Evaluation of progress towards goal: Patient verbalized adequate comfort level. Patient remains injury free. Patient shows no signs or syptomsof infection. Patients vitals are within normal limits. Patient verbalizes understanding of daily care plan. Patient to be discharged to home. Patient r emains free from falls. Patients fundus is firm @ midline and able to empty bladder. Patients vitals taken every four hours , I&O, reflexes, and daily weight. Patient has optimal breast milk supply and verbalized she is not comfortable . Educated patient on the benefits of for mother and patient verbalized understanding request to formula feed . Will continue to monitor. Goal: Patient's nutritional intake is adequate Description: Patient's goal is: INTERVENTIONS 1. Assess and monitor food intake and supplements, patient food preferences, nausea, vomiting, labs, oral cavity (gums, teeth, tongue, mucosa), proper denture fit, and cultural beliefs 2. Monitor for signs of hypoglycemia and hyperglycemia 3. Collaborate with interdisciplinary team and initiate plan and interventions as ordered 4. Monitor patient's weight 5. Assist patient with meals/food selection 6. Assist patient with eating 7. Allow adequate time for meals 8. Provide pleasant environment during mealtime 9. Increase social contact during mealtimes 10. Plan activities to conserve energy 11. Encourage/perform oral hygiene as appropriate 12. Encourage patient to take dietary supplement as ordered 13. Collaborate with clinical crime scene specialist 14. Include patient/ patient's client representative in decisions related to nutrition Outcome: Progressing Note: Evaluation of progress towards goal: Patient verbalized adequate comfort level. Patient remains injury free. Patient shows no signs or syptomsof infection. Patients vitals are within normal limits. Patient verbalizes understanding of daily care plan. Patient to be discharged to home. Patient r emains free from falls. Patients fundus is firm @ midline and able to empty bladder. Patients vitals taken every four hours , I&O, reflexes, and daily weight. Patient has optimal breast milk supply and verbalized she is not comfortable . Educated patient on the benefits of for mother and patient verbalized understanding request to formula feed . Will continue to monitor. Problem: Urinary Incontinence Goal: Perineal skin integrity is maintained or improved Description: INTERVENTIONS 1. Assess genitourinary system, perineal skin, labs (urinalysis), and history of incontinence to include past management, aggravating, and alleviating factors 2. Keep skin clean and dry 3. Apply skin protectant 4. Develop skin care regimen 5. Provide privacy when changing patients incontinence device to maintain their dignity 6. Consider placing an indwelling catheter 7. Collaborate with interdisciplinary team and initiate plans and interventions as needed Outcome: Progressing Note: Evaluation of progress towards goal: Patient verbalized adequate comfort level. Patient remains injury free. Patient shows no signs or syptomsof infection. Patients vitals are within normal limits. Patient verbalizes understanding of daily care plan. Patient to be discharged to home. Patient r emains free from falls. Patients fundus is firm @ midline and able to empty bladder. Patients vitals taken every four hours , I&O, reflexes, and daily weight. Patient has optimal breast milk supply and verbalized she is not comfortable . Educated patient on the benefits of for mother and patient verbalized understanding request to formula feed . Will continue to monitor. Problem: Hypertension during Goal: Patient will have blood pressures within normal limits Description: INTERVENTIONS 1. Monitor blood pressures as ordered (>90/60, <140/100) 2. Monitor intake and output (urinout output >30 ml/hr.) 3. Monitor daily weight 4. Monitor for edema, especially ankles, fingers and face Outcome: Progressing Note: Evaluation of progress towards goal: Patient verbalized adequate comfort level. Patient remains injury free. Patient shows no signs or syptomsof infection. Patients vitals are within normal limits. Patient verbalizes understanding of daily care plan. Patient to be discharged to home. Patient r emains free from falls. Patients fundus is firm @ midline and able to empty bladder. Patients vitals taken every four hours , I&O, reflexes, and daily weight. Patient has optimal breast milk supply and verbalized she is not comfortable . Educated patient on the benefits of for mother and patient verbalized understanding request to formula feed . Will continue to monitor. Additional Comments: * Plan of Care - Priscila Holt RN - 03/10/2025 10:53 PM EDT Problem: Pain Goal: Patient goal is pain score less than 4, able to rest, and participant in treatment plan as appropriate Description: INTERVENTIONS: 1. Encourage patient or legal client representative to report early pain and ask for pain medicine when needed 2. Assess pain using appropriate pain scale and include the scale used when documenting 3. Administer analgesics based on type and severity of pain and evaluate response within appropriate time frame 4. Implement non-pharmacological measures as appropriate and evaluate response 5. Consider cultural and social influences on pain and pain management 6. Notify LIP if interventions ineffective or patient reports new pain 7. Monitor vital signs including pulse ox, end-tidal CO2 based on pain intervention 8. Reassess pain per policy 9. Teach patient or legal client representative interventions for comforting Outcome: Progressing Note: Evaluation of progress towards goal: Pt has prn pain meds and verbalizes acceptable pain score Problem: Safety Goal: Patient will be injury free during hospitalization Description: INTERVENTIONS: 1. Assess patient's risk for falls and implement fall prevention plan of care per policy 2. Provide and maintain a safe environment 3. Proper use of double Identifiers 4. Medication administration using the 5 rights 5. Hand hygiene 6. Specimens are labeled at the bedside 7. Instruct patient/ patient client representative about use of safety devices 8. Include patient/ patient client representative in decisions related to safety Outcome: Progressing Note: Evaluation of progress towards goal: Pt is free of injury Problem: Infection Goal: Absence of infection during hospitalization Description: INTERVENTIONS 1. Assess and monitor for signs and symptoms of infection. 2. Monitor lab/diagnostic results. 3. Monitor all insertion sites i.e., indwelling lines, tubes and drains. 4. Monitor endotracheal (as able) and nasal secretions for changes in amount and color. 5. Administer medications as ordered. 6. Instruct and encourage patient and family to use good hand hygiene technique. 7. Identify and instruct patient/patient client representative in use of appropriate isolation precautionsfor identified infection/symptoms. 8. Provide and discuss with patient/patient client representative on educational MDRO sheet. 9. Encourage and monitor nutritional status daily and consult crime scene specialist if indicated. 10. Implement neutropenic guidelines as needed. Outcome: Progressing Note: Evaluation of progress towards goal: No signs/symptoms of infection noted Problem: Knowledge Deficit Goal: Patient/patient client representative demonstrates understanding of disease process, treatment plan,medications, and discharge instructions Description: INTERVENTIONS 1. Complete learning assessment and assess knowledge base 2. Provide teaching at level of understanding 3. Provide teaching via preferred learning method(s) Outcome: Progressing Note: Evaluation of progress towards goal: Pt verbalizes understanding of POC Problem: Discharge Planning Goal: Discharge to post-acute care, other facility, or home with appropriate resources Description: Patient's goal is: INTERVENTIONS 1. Conduct assessment to determine patient/family and health care team treatment goals, and need for post-acute services based on payer coverage, community resources, and patient preferences, and barriers to discharge 2. Coordinate with Social work, Care Navigation, and Utilization Review to arrange appropriate level of services according to patient's needs based on patient preference and payer coverage in collaboration with the physician and health care team 3. Address psychosocial, clinical, and financial barriers to discharge as identified in assessment in conjunction with the patient/family and health care team 4. Consult appropriate ancillary services (i.e.. PT/OT/ST, etc) as needed 5. Communicate with and update the patient/family, physician, and health care team regarding progress on the discharge plan 6. Identify discharge learning needs (meds, wound care, etc). 7. Arrange for needed discharge transportation as appropriate Outcome: Progressing Note: Evaluation of progress towards goal: Plans to discharge to home. All needs will be addressed prior to discharge. Problem: Moderate - High Risk Fall Score Description: Nolan Fall Score of =/> 25 or indicated by [facility] Assessment Goal: Patient should be free from fall Description: Interventions: 1. [place] to environment 2. Hourly rounds addressing the 4 P's (Pain, Positioning, Possessions, Potty) 3. Clear area of hazards (spills, clutter, electrical cords, unnecessary equipment) 4. Place equipment (bed & TV controls, call light, phone, urinal) within reach 5. Encourage patient to wear glasses and hearing aides as appropriate 6. Maintain bed in lowest position 7. Lock wheels on bed/wheelchair 8. Provide adequate lighting, including night light 9. Assess need for additional bedding, food/fluids, pain med's prior to sleep/routinely 10. Provide gripper slippers or personal non-skid footwear 11. Teach patient and patient client representative to maintain environment for safety and engage in all aspects of fall prevention program 12. Remind patient to call for help before getting out of bed 13. Initiate bed/chair/exit alarms supportive devices as appropriate, (chair wedge, no-skid floor mat, raised edge mattress, hip protectors) 14. Locate patient bed assignment for optimal visualization 15. Evaluate and identify Safe Patient Handling Equipment needs 16. Provide supervision when out of bed or chair 17. Utilize gait belt as needed to assist with ambulation 18. Place adaptive equipment (cane, walker) within reach 19. Request patient client representative bring adaptive equipment/mobility aids from home or obtain and provide as needed 20. Consult pharmacy regarding effects of med's affecting mobility, cognition, and alternatives 21. Obtain physician order for PT if risk factors associated with mobility are present 22. Obtain physician order for OT as appropriate 23. Utilize diversional activities 24. Educate patient and patient client representative how to maintain a safe environment during visitationtimes (notify nurse prior to leaving bedside) 25. Consider appropriateness of medical or non-er medical technician 26. Set up voiding schedule as appropriate (every 2 hours) Outcome: Progressing Note: Evaluation of progress towards goal: Pt is free of falls Problem: Potential for Compromised Skin Integrity Goal: Skin integrity is maintained or improved Description: Patient's goal is: INTERVENTIONS 1. Perform initial skin assessment on admission and as needed 2. Turn patient every 2 hours and PRN 3. Relieve pressure to bony prominences 4. Avoid shearing 5. Keep skin clean and dry 6. Alternate a full bath with partial baths for elderly 7. Apply lotion/moisturizer on skin 8. Monitor patient's hygiene practices 9. Float heels 10. Collaborate with interdisciplinary team and initiate plans and interventions as needed Outcome: Progressing Note: Evaluation of progress towards goal: Skin remains intact with no signs of breakdown Goal: Patient's nutritional intake is adequate Description: Patient's goal is: INTERVENTIONS 1. Assess and monitor food intake and supplements, patient food preferences, nausea, vomiting, labs, oral cavity (gums, teeth, tongue, mucosa), proper denture fit, and cultural beliefs 2. Monitor for signs of hypoglycemia and hyperglycemia 3. Collaborate with interdisciplinary team and initiate plan and interventions as ordered 4. Monitor patient's weight 5. Assist patient with meals/food selection 6. Assist patient with eating 7. Allow adequate time for meals 8. Provide pleasant environment during mealtime 9. Increase social contact during mealtimes 10. Plan activities to conserve energy 11. Encourage/perform oral hygiene as appropriate 12. Encourage patient to take dietary supplement as ordered 13. Collaborate with clinical crime scene specialist 14. Include patient/ patient's client representative in decisions related to nutrition Outcome: Progressing Note: Evaluation of progress towards goal: Intake is adequate Problem: Urinary Incontinence Goal: Perineal skin integrity is maintained or improved Description: INTERVENTIONS 1. Assess genitourinary system, perineal skin, labs (urinalysis), and history of incontinence to include past management, aggravating, and alleviating factors 2. Keep skin clean and dry 3. Apply skin protectant 4. Develop skin care regimen 5. Provide privacy when changing patients incontinence device to maintain their dignity 6. Consider placing an indwelling catheter 7. Collaborate with interdisciplinary team and initiate plans and interventions as needed Outcome: Progressing Note: Evaluation of progress towards goal: Jack skin maintained Problem: Hypertension during Goal: Patient will have blood pressures within normal limits Description: INTERVENTIONS 1. Monitor blood pressures as ordered (>90/60, <140/100) 2. Monitor intake and output (urinout output >30 ml/hr.) 3. Monitor daily weight 4. Monitor for edema, especially ankles, fingers and face Outcome: Progressing Note: Evaluation of progress towards goal: Bps boarderline 140s/90s. No meds Additional Comments: * Plan of Care - June Lopez RN - 03/10/2025 2:51 PM EDT Problem: Pain Goal: Patient goal is pain score less than 4, able to rest, and participant in treatment plan as appropriate Description: INTERVENTIONS: 1. Encourage patient or legal client representative to report early pain and ask for pain medicine when needed 2. Assess pain using appropriate pain scale and include the scale used when documenting 3. Administer analgesics based on type and severity of pain and evaluate response within appropriate time frame 4. Implement non-pharmacological measures as appropriate and evaluate response 5. Consider cultural and social influences on pain and pain management 6. Notify LIP if interventions ineffective or patient reports new pain 7. Monitor vital signs including pulse ox, end-tidal CO2 based on pain intervention 8. Reassess pain per policy 9. Teach patient or legal client representative interventions for comforting Outcome: Progressing Note: Evaluation of progress towards goal: Mother was given information on guerita for recording newborns feeding, voids, and stools. Educated mother on the value of this information for newborns well being. Wrote guerita [employer] on white board in room. Mother verbalized understanding Patient verbalized adequate comfort level. Patient remains injury free. Patient shows no signs or syptomsof infection. Patients vitals are within normal limits. Patient verbalizes understanding of daily care plan. Patient to be discharged to home. Patient remains free from falls. Patients fundus is firm @ midlineand able to empty bladder. Patient has optimal breast milk supply and verbalized she is not comfortable . Educated patient on the benefits of for mother and patientverbalized understanding request to formula feed . Will continue to monitor. Problem: Safety Goal: Patient will be injury free during hospitalization Description: INTERVENTIONS: 1. Assess patient's risk for falls and implement fall prevention plan of care per policy 2. Provide and maintain a safe environment 3. Proper use of double Identifiers 4. Medication administration using the 5 rights 5. Hand hygiene 6. Specimens are labeled at the bedside 7. Instruct patient/ patient client representative about use of safety devices 8. Include patient/ patient client representative in decisions related to safety Outcome: Progressing Note: Evaluation of progress towards goal: Mother was given information on guerita for recording newborns feeding, voids, and stools. Educated mother on the value of this information for newborns well being. Wrote guerita [employer] on white board in room. Mother verbalized understanding Patient verbalized adequate comfort level. Patient remains injury free. Patient shows no signs or syptomsof infection. Patients vitals are within normal limits. Patient verbalizes understanding of daily care plan. Patient to be discharged to home. Patient remains free from falls. Patients fundus is firm @ midlineand able to empty bladder. Patient has optimal breast milk supply and verbalized she is not comfortable . Educated patient on the benefits of for mother and patientverbalized understanding request to formula feed . Will continue to monitor. Problem: Infection Goal: Absence of infection during hospitalization Description: INTERVENTIONS 1. Assess and monitor for signs and symptoms of infection. 2. Monitor lab/diagnostic results. 3. Monitor all insertion sites i.e., indwelling lines, tubes and drains. 4. Monitor endotracheal (as able) and nasal secretions for changes in amount and color. 5. Administer medications as ordered. 6. Instruct and encourage patient and family to use good hand hygiene technique. 7. Identify and instruct patient/patient client representative in use of appropriate isolation precautionsfor identified infection/symptoms. 8. Provide and discuss with patient/patient client representative on educational MDRO sheet. 9. Encourage and monitor nutritional status daily and consult crime scene specialist if indicated. 10. Implement neutropenic guidelines as needed. Outcome: Progressing Note: Evaluation of progress towards goal: Mother was given information on guerita for recording newborns feeding, voids, and stools. Educated mother on the value of this information for newborns well being. Wrote guerita [employer] on white board in room. Mother verbalized understanding Patient verbalized adequate comfort level. Patient remains injury free. Patient shows no signs or syptomsof infection. Patients vitals are within normal limits. Patient verbalizes understanding of daily care plan. Patient to be discharged to home. Patient remains free from falls. Patients fundus is firm @ midlineand able to empty bladder. Patient has optimal breast milk supply and verbalized she is not comfortable . Educated patient on the benefits of for mother and patientverbalized understanding request to formula feed . Will continue to monitor. Problem: Knowledge Deficit Goal: Patient/patient client representative demonstrates understanding of disease process, treatment plan,medications, and discharge instructions Description: INTERVENTIONS 1. Complete learning assessment and assess knowledge base 2. Provide teaching at level of understanding 3. Provide teaching via preferred learning method(s) Outcome: Progressing Note: Evaluation of progress towards goal: Mother was given information on guerita for recording newborns feeding, voids, and stools. Educated mother on the value of this information for newborns well being. Wrote guerita [employer] on white board in room. Mother verbalized understanding Patient verbalized adequate comfort level. Patient remains injury free. Patient shows no signs or syptomsof infection. Patients vitals are within normal limits. Patient verbalizes understanding of daily care plan. Patient to be discharged to home. Patient remains free from falls. Patients fundus is firm @ midlineand able to empty bladder. Patient has optimal breast milk supply and verbalized she is not comfortable . Educated patient on the benefits of for mother and patientverbalized understanding request to formula feed . Will continue to monitor. Problem: Discharge Planning Goal: Discharge to post-acute care, other facility, or home with appropriate resources Description: Patient's goal is: INTERVENTIONS 1. Conduct assessment to determine patient/family and health care team treatment goals, and need for post-acute services based on payer coverage, community resources, and patient preferences, and barriers to discharge 2. Coordinate with Social work, Care Navigation, and Utilization Review to arrange appropriate level of services according to patient's needs based on patient preference and payer coverage in collaboration with the physician and health care team 3. Address psychosocial, clinical, and financial barriers to discharge as identified in assessment in conjunction with the patient/family and health care team 4. Consult appropriate ancillary services (i.e.. PT/OT/ST, etc) as needed 5. Communicate with and update the patient/family, physician, and health care team regarding progress on the discharge plan 6. Identify discharge learning needs (meds, wound care, etc). 7. Arrange for needed discharge transportation as appropriate Outcome: Progressing Note: Evaluation of progress towards goal: Mother was given information on guerita for recording newborns feeding, voids, and stools. Educated mother on the value of this information for newborns well being. Wrote guerita [employer] on white board in room. Mother verbalized understanding Patient verbalized adequate comfort level. Patient remains injury free. Patient shows no signs or syptomsof infection. Patients vitals are within normal limits. Patient verbalizes understanding of daily care plan. Patient to be discharged to home. Patient remains free from falls. Patients fundus is firm @ midlineand able to empty bladder. Patient has optimal breast milk supply and verbalized she is not comfortable . Educated patient on the benefits of for mother and patientverbalized understanding request to formula feed . Will continue to monitor. Problem: Moderate - High Risk Fall Score Description: Nolan Fall Score of =/> 25 or indicated by [facility] Assessment Goal: Patient should be free from fall Description: Interventions: 1. [place] to environment 2. Hourly rounds addressing the 4 P's (Pain, Positioning, Possessions, Potty) 3. Clear area of hazards (spills, clutter, electrical cords, unnecessary equipment) 4. Place equipment (bed & TV controls, call light, phone, urinal) within reach 5. Encourage patient to wear glasses and hearing aides as appropriate 6. Maintain bed in lowest position 7. Lock wheels on bed/wheelchair 8. Provide adequate lighting, including night light 9. Assess need for additional bedding, food/fluids, pain med's prior to sleep/routinely 10. Provide gripper slippers or personal non-skid footwear 11. Teach patient and patient client representative to maintain environment for safety and engage in all aspects of fall prevention program 12. Remind patient to call for help before getting out of bed 13. Initiate bed/chair/exit alarms supportive devices as appropriate, (chair wedge, no-skid floor mat, raised edge mattress, hip protectors) 14. Locate patient bed assignment for optimal visualization 15. Evaluate and identify Safe Patient Handling Equipment needs 16. Provide supervision when out of bed or chair 17. Utilize gait belt as needed to assist with ambulation 18. Place adaptive equipment (cane, walker) within reach 19. Request patient client representative bring adaptive equipment/mobility aids from home or obtain and provide as needed 20. Consult pharmacy regarding effects of med's affecting mobility, cognition, and alternatives 21. Obtain physician order for PT if risk factors associated with mobility are present 22. Obtain physician order for OT as appropriate 23. Utilize diversional activities 24. Educate patient and patient client representative how to maintain a safe environment during visitationtimes (notify nurse prior to leaving bedside) 25. Consider appropriateness of medical or non-er medical technician 26. Set up voiding schedule as appropriate (every 2 hours) Outcome: Progressing Note: Evaluation of progress towards goal: Mother was given information on guerita for recording newborns feeding, voids, and stools. Educated mother on the value of this information for newborns well being. Wrote guerita [employer] on white board in room. Mother verbalized understanding Patient verbalized adequate comfort level. Patient remains injury free. Patient shows no signs or syptomsof infection. Patients vitals are within normal limits. Patient verbalizes understanding of daily care plan. Patient to be discharged to home. Patient remains free from falls. Patients fundus is firm @ midlineand able to empty bladder. Patient has optimal breast milk supply and verbalized she is not comfortable . Educated patient on the benefits of for mother and patientverbalized understanding request to formula feed . Will continue to monitor. Problem: Induction Goal: Patient will verbalize understanding of induction process Description: INTERVENTION 1. Educate patient about the induction process Outcome: Progressing Note: Evaluation of progress towards goal: Mother was given information on guerita for recording newborns feeding, voids, and stools. Educated mother on the value of this information for newborns well being. Wrote guerita [employer] on white board in room. Mother verbalized understanding Patient verbalized adequate comfort level. Patient remains injury free. Patient shows no signs or syptomsof infection. Patients vitals are within normal limits. Patient verbalizes understanding of daily care plan. Patient to be discharged to home. Patient remains free from falls. Patients fundus is firm @ midlineand able to empty bladder. Patient has optimal breast milk supply and verbalized she is not comfortable . Educated patient on the benefits of for mother and patientverbalized understanding request to formula feed . Will continue to monitor. Problem: Potential for Compromised Skin Integrity Goal: Skin integrity is maintained or improved Description: Patient's goal is: INTERVENTIONS 1. Perform initial skin assessment on admission and as needed 2. Turn patient every 2 hours and PRN 3. Relieve pressure to bony prominences 4. Avoid shearing 5. Keep skin clean and dry 6. Alternate a full bath with partial baths for elderly 7. Apply lotion/moisturizer on skin 8. Monitor patient's hygiene practices 9. Float heels 10. Collaborate with interdisciplinary team and initiate plans and interventions as needed Outcome: Progressing Note: Evaluation of progress towards goal: Mother was given information on guerita for recording newborns feeding, voids, and stools. Educated mother on the value of this information for newborns well being. Wrote guerita [employer] on white board in room. Mother verbalized understanding Patient verbalized adequate comfort level. Patient remains injury free. Patient shows no signs or syptomsof infection. Patients vitals are within normal limits. Patient verbalizes understanding of daily care plan. Patient to be discharged to home. Patient remains free from falls. Patients fundus is firm @ midlineand able to empty bladder. Patient has optimal breast milk supply and verbalized she is not comfortable . Educated patient on the benefits of for mother and patientverbalized understanding request to formula feed . Will continue to monitor. Goal: Patient's nutritional intake is adequate Description: Patient's goal is: INTERVENTIONS 1. Assess and monitor food intake and supplements, patient food preferences, nausea, vomiting, labs, oral cavity (gums, teeth, tongue, mucosa), proper denture fit, and cultural beliefs 2. Monitor for signs of hypoglycemia and hyperglycemia 3. Collaborate with interdisciplinary team and initiate plan and interventions as ordered 4. Monitor patient's weight 5. Assist patient with meals/food selection 6. Assist patient with eating 7. Allow adequate time for meals 8. Provide pleasant environment during mealtime 9. Increase social contact during mealtimes 10. Plan activities to conserve energy 11. Encourage/perform oral hygiene as appropriate 12. Encourage patient to take dietary supplement as ordered 13. Collaborate with clinical crime scene specialist 14. Include patient/ patient's client representative in decisions related to nutrition Outcome: Progressing Note: Evaluation of progress towards goal: Mother was given information on guerita for recording newborns feeding, voids, and stools. Educated mother on the value of this information for newborns well being. Wrote guerita [employer] on white board in room. Mother verbalized understanding Patient verbalized adequate comfort level. Patient remains injury free. Patient shows no signs or syptomsof infection. Patients vitals are within normal limits. Patient verbalizes understanding of daily care plan. Patient to be discharged to home. Patient remains free from falls. Patients fundus is firm @ midlineand able to empty bladder. Patient has optimal breast milk supply and verbalized she is not comfortable . Educated patient on the benefits of for mother and patientverbalized understanding request to formula feed . Will continue to monitor. Problem: Urinary Incontinence Goal: Perineal skin integrity is maintained or improved Description: INTERVENTIONS 1. Assess genitourinary system, perineal skin, labs (urinalysis), and history of incontinence to include past management, aggravating, and alleviating factors 2. Keep skin clean and dry 3. Apply skin protectant 4. Develop skin care regimen 5. Provide privacy when changing patients incontinence device to maintain their dignity 6. Consider placing an indwelling catheter 7. Collaborate with interdisciplinary team and initiate plans and interventions as needed Outcome: Progressing Note: Evaluation of progress towards goal: Mother was given information on guerita for recording newborns feeding, voids, and stools. Educated mother on the value of this information for newborns well being. Wrote guerita [employer] on white board in room. Mother verbalized understanding Patient verbalized adequate comfort level. Patient remains injury free. Patient shows no signs or syptomsof infection. Patients vitals are within normal limits. Patient verbalizes understanding of daily care plan. Patient to be discharged to home. Patient remains free from falls. Patients fundus is firm @ midlineand able to empty bladder. Patient has optimal breast milk supply and verbalized she is not comfortable . Educated patient on the benefits of for mother and patientverbalized understanding request to formula feed . Will continue to monitor. Problem: Hypertension during Goal: Patient will have blood pressures within normal limits Description: INTERVENTIONS 1. Monitor blood pressures as ordered (>90/60, <140/100) 2. Monitor intake and output (urinout output >30 ml/hr.) 3. Monitor daily weight 4. Monitor for edema, especially ankles, fingers and face Outcome: Progressing Note: Evaluation of progress towards goal: Mother was given information on guerita for recording newborns feeding, voids, and stools. Educated mother on the value of this information for newborns well being. Wrote guerita [employer] on white board in room. Mother verbalized understanding Patient verbalized adequate comfort level. Patient remains injury free. Patient shows no signs or syptomsof infection. Patients vitals are within normal limits. Patient verbalizes understanding of daily care plan. Patient to be discharged to home. Patient remains free from falls. Patients fundus is firm @ midlineand able to empty bladder. Patient has optimal breast milk supply and verbalized she is not comfortable . Vitals assessed every four hours ,I&O, with reflex Educated patient on the benefits of for mother and patient verbalized understanding request to formula feed . Will continue to monitor. Additional Comments: * L&D Delivery Note - Brittney Hebert MD - 03/10/2025 10:27 AM EDT Vaginal Delivery Note Everett Vivar is a at 39w2d admitted for mIOL due to cleft lip/palate. The patient received an epidural for pain management and was comfortable during labor. The pt progressed to complete. Pt delivered head over intact perineum . Anterior and posterior shoulder were easily delivered and remainder of body followed. After 1 minute, the cord was clamped x2 and cut and infant was passed to mother for skin to skin and for evaluation. Pitocin was started per protocol. Cord segment was cut and cord blood obtained. Placenta was delivered intact with light traction. A small left paraurethral laceration and first degree perineal tear were noted and repaired per standard protocol. Good hemostasis was noted. bleeding was stable. Fundus firm. All sponge and needle counts were correct. Anesthesia: local and epidural Delivery type: Vaginal, Spontaneous Rupture of Membranes: Artificial;Intact 03/09/2025 at 4:25 PM Shoulder Dystocia: no Time of Delivery: 826 Infant Weight: 2930 grams Gender: Female Apgars: 8 and 9 at one and five minutes respectively NICU attended delivery: no Placenta Delivery: delivered intact with light traction Episiotomy: no Laceration: 1st degree, repaired per standard protocol Estimated Blood Loss: [address] Alyssa Luque was present and participated in the delivery. Brittney Hebert MD Jacket Preparer Resident, PGY-1 Cosigned by Alyssa Luque MD at 03/10/2025 11:42 AM EDT Associated attestation - Alyssa Luque MD - 03/10/2025 11:42 AM EDT Attending Attestation: I saw the patient. I performed the critical/abreu portions of the service. I was directly involved inthe management and treatment plan of the patient. I reviewed the resident's note. Additional Notes/Findings: Chorioamnionitis - will monitor. I entered room just after baby delivery. Bilateral periurethral lacerations, 15 cc of lidocaine injected for local anesthesia. Laceration repair with 4-0 vicryl on R periurethral, L side was hemostatic. NO first degree laceration. Alyssa Luque MD * Plan of Care - Tara Davila RN - 03/09/2025 9:20 PM EDT Problem: Pain Goal: Patient goal is pain score less than 4, able to rest, and participant in treatment plan as appropriate Description: INTERVENTIONS: 1. Encourage patient or legal client representative to report early pain and ask for pain medicine when needed 2. Assess pain using appropriate pain scale and include the scale used when documenting 3. Administer analgesics based on type and severity of pain and evaluate response within appropriate time frame 4. Implement non-pharmacological measures as appropriate and evaluate response 5. Consider cultural and social influences on pain and pain management 6. Notify LIP if interventions ineffective or patient reports new pain 7. Monitor vital signs including pulse ox, end-tidal CO2 based on pain intervention 8. Reassess pain per policy 9. Teach patient or legal client representative interventions for comforting Outcome: Progressing Note: Evaluation of progress towards goal: Patient verbalizes tolerable level of pain at this time.Pain medications will be given as needed. Problem: Safety Goal: Patient will be injury free during hospitalization Description: INTERVENTIONS: 1. Assess patient's risk for falls and implement fall prevention plan of care per policy 2. Provide and maintain a safe environment 3. Proper use of double Identifiers 4. Medication administration using the 5 rights 5. Hand hygiene 6. Specimens are labeled at the bedside 7. Instruct patient/ patient client representative about use of safety devices 8. Include patient/ patient client representative in decisions related to safety Outcome: Progressing Note: Evaluation of progress towards goal: Safe environment maintained. Medications administered using 5 rights. Fall prevention plan implemented as needed. Problem: Infection Goal: Absence of infection during hospitalization Description: INTERVENTIONS 1. Assess and monitor for signs and symptoms of infection. 2. Monitor lab/diagnostic results. 3. Monitor all insertion sites i.e., indwelling lines, tubes and drains. 4. Monitor endotracheal (as able) and nasal secretions for changes in amount and color. 5. Administer medications as ordered. 6. Instruct and encourage patient and family to use good hand hygiene technique. 7. Identify and instruct patient/patient client representative in use of appropriate isolation precautionsfor identified infection/symptoms. 8. Provide and discuss with patient/patient client representative on educational MDRO sheet. 9. Encourage and monitor nutritional status daily and consult crime scene specialist if indicated. 10. Implement neutropenic guidelines as needed. Outcome: Progressing Note: Evaluation of progress towards goal: Patient is free from signs and symptoms of infection. Problem: Knowledge Deficit Goal: Patient/patient client representative demonstrates understanding of disease process, treatment plan,medications, and discharge instructions Description: INTERVENTIONS 1. Complete learning assessment and assess knowledge base 2. Provide teaching at level of understanding 3. Provide teaching via preferred learning method(s) Outcome: Progressing Note: Evaluation of progress towards goal: Teaching provided as needed at patient's level of understanding. Problem: Discharge Planning Goal: Discharge to post-acute care, other facility, or home with appropriate resources Description: Patient's goal is: INTERVENTIONS 1. Conduct assessment to determine patient/family and health care team treatment goals, and need for post-acute services based on payer coverage, community resources, and patient preferences, and barriers to discharge 2. Coordinate with Social work, Care Navigation, and Utilization Review to arrange appropriate level of services according to patient's needs based on patient preference and payer coverage in collaboration with the physician and health care team 3. Address psychosocial, clinical, and financial barriers to discharge as identified in assessment in conjunction with the patient/family and health care team 4. Consult appropriate ancillary services (i.e.. PT/OT/ST, etc) as needed 5. Communicate with and update the patient/family, physician, and health care team regarding progress on the discharge plan 6. Identify discharge learning needs (meds, wound care, etc). 7. Arrange for needed discharge transportation as appropriate Outcome: Progressing Note: Evaluation of progress towards goal: Not currently addressed at this time Problem: Moderate - High Risk Fall Score Description: Nolan Fall Score of =/> 25 or indicated by [facility] Assessment Goal: Patient should be free from fall Description: Interventions: 1. [place] to environment 2. Hourly rounds addressing the 4 P's (Pain, Positioning, Possessions, Potty) 3. Clear area of hazards (spills, clutter, electrical cords, unnecessary equipment) 4. Place equipment (bed & TV controls, call light, phone, urinal) within reach 5. Encourage patient to wear glasses and hearing aides as appropriate 6. Maintain bed in lowest position 7. Lock wheels on bed/wheelchair 8. Provide adequate lighting, including night light 9. Assess need for additional bedding, food/fluids, pain med's prior to sleep/routinely 10. Provide gripper slippers or personal non-skid footwear 11. Teach patient and patient client representative to maintain environment for safety and engage in all aspects of fall prevention program 12. Remind patient to call for help before getting out of bed 13. Initiate bed/chair/exit alarms supportive devices as appropriate, (chair wedge, no-skid floor mat, raised edge mattress, hip protectors) 14. Locate patient bed assignment for optimal visualization 15. Evaluate and identify Safe Patient Handling Equipment needs 16. Provide supervision when out of bed or chair 17. Utilize gait belt as needed to assist with ambulation 18. Place adaptive equipment (cane, walker) within reach 19. Request patient client representative bring adaptive equipment/mobility aids from home or obtain and provide as needed 20. Consult pharmacy regarding effects of med's affecting mobility, cognition, and alternatives 21. Obtain physician order for PT if risk factors associated with mobility are present 22. Obtain physician order for OT as appropriate 23. Utilize diversional activities 24. Educate patient and patient client representative how to maintain a safe environment during visitationtimes (notify nurse prior to leaving bedside) 25. Consider appropriateness of medical or non-er medical technician 26. Set up voiding schedule as appropriate (every 2 hours) Outcome: Progressing Note: Evaluation of progress towards goal: Pt remains free from falls Problem: Induction Goal: Patient will verbalize understanding of induction process Description: INTERVENTION 1. Educate patient about the induction process Outcome: Progressing Note: Evaluation of progress towards goal: Teaching provided as needed at patient's level of understanding. Problem: Potential for Compromised Skin Integrity Goal: Skin integrity is maintained or improved Description: Patient's goal is: INTERVENTIONS 1. Perform initial skin assessment on admission and as needed 2. Turn patient every 2 hours and PRN 3. Relieve pressure to bony prominences 4. Avoid shearing 5. Keep skin clean and dry 6. Alternate a full bath with partial baths for elderly 7. Apply lotion/moisturizer on skin 8. Monitor patient's hygiene practices 9. Float heels 10. Collaborate with interdisciplinary team and initiate plans and interventions as needed Outcome: Progressing Note: Evaluation of progress towards goal: Skin wnl Goal: Patient's nutritional intake is adequate Description: Patient's goal is: INTERVENTIONS 1. Assess and monitor food intake and supplements, patient food preferences, nausea, vomiting, labs, oral cavity (gums, teeth, tongue, mucosa), proper denture fit, and cultural beliefs 2. Monitor for signs of hypoglycemia and hyperglycemia 3. Collaborate with interdisciplinary team and initiate plan and interventions as ordered 4. Monitor patient's weight 5. Assist patient with meals/food selection 6. Assist patient with eating 7. Allow adequate time for meals 8. Provide pleasant environment during mealtime 9. Increase social contact during mealtimes 10. Plan activities to conserve energy 11. Encourage/perform oral hygiene as appropriate 12. Encourage patient to take dietary supplement as ordered 13. Collaborate with clinical crime scene specialist 14. Include patient/ patient's client representative in decisions related to nutrition Outcome: Progressing Note: Evaluation of progress towards goal: Nutritional intake wnl Problem: Urinary Incontinence Goal: Perineal skin integrity is maintained or improved Description: INTERVENTIONS 1. Assess genitourinary system, perineal skin, labs (urinalysis), and history of incontinence to include past management, aggravating, and alleviating factors 2. Keep skin clean and dry 3. Apply skin protectant 4. Develop skin care regimen 5. Provide privacy when changing patients incontinence device to maintain their dignity 6. Consider placing an indwelling catheter 7. Collaborate with interdisciplinary team and initiate plans and interventions as needed Outcome: Progressing Note: Evaluation of progress towards goal: Perineum wnl Problem: Hypertension during Goal: Patient will have blood pressures within normal limits Description: INTERVENTIONS 1. Monitor blood pressures as ordered (>90/60, <140/100) 2. Monitor intake and output (urinout output >30 ml/hr.) 3. Monitor daily weight 4. Monitor for edema, especially ankles, fingers and face Outcome: Progressing Note: Evaluation of progress towards goal: Pt will have BP and urine output WDL. Pt does not have increasing edema to ankles, fingers, or face. No significant changes to daily weight. Additional Comments: * Plan of Care - Barbi Nassar RN - 03/09/2025 7:35 AM EDT Problem: Pain Goal: Patient goal is pain score less than 4, able to rest, and participant in treatment plan as appropriate Description: INTERVENTIONS: 1. Encourage patient or legal client representative to report early pain and ask for pain medicine when needed 2. Assess pain using appropriate pain scale and include the scale used when documenting 3. Administer analgesics based on type and severity of pain and evaluate response within appropriate time frame 4. Implement non-pharmacological measures as appropriate and evaluate response 5. Consider cultural and social influences on pain and pain management 6. Notify LIP if interventions ineffective or patient reports new pain 7. Monitor vital signs including pulse ox, end-tidal CO2 based on pain intervention 8. Reassess pain per policy 9. Teach patient or legal client representative interventions for comforting Outcome: Progressing Note: Evaluation of progress towards goal:Patient verbalizes tolerable level of pain at this time. Pain medications will be given as needed. Problem: Safety Goal: Patient will be injury free during hospitalization Description: INTERVENTIONS: 1. Assess patient's risk for falls and implement fall prevention plan of care per policy 2. Provide and maintain a safe environment 3. Proper use of double Identifiers 4. Medication administration using the 5 rights 5. Hand hygiene 6. Specimens are labeled at the bedside 7. Instruct patient/ patient client representative about use of safety devices 8. Include patient/ patient client representative in decisions related to safety Outcome: Progressing Note: Evaluation of progress towards goal: Safe environment maintained. Medications administered using 5 rights. Fall prevention plan implemented as needed. Problem: Infection Goal: Absence of infection during hospitalization Description: INTERVENTIONS 1. Assess and monitor for signs and symptoms of infection. 2. Monitor lab/diagnostic results. 3. Monitor all insertion sites i.e., indwelling lines, tubes and drains. 4. Monitor endotracheal (as able) and nasal secretions for changes in amount and color. 5. Administer medications as ordered. 6. Instruct and encourage patient and family to use good hand hygiene technique. 7. Identify and instruct patient/patient client representative in use of appropriate isolation precautionsfor identified infection/symptoms. 8. Provide and discuss with patient/patient client representative on educational MDRO sheet. 9. Encourage and monitor nutritional status daily and consult crime scene specialist if indicated. 10. Implement neutropenic guidelines as needed. Outcome: Progressing Note: Evaluation of progress towards goal: Patient is free from signs and symptoms of infection.Patient is free from signs and symptoms of infection. Problem: Knowledge Deficit Goal: Patient/patient client representative demonstrates understanding of disease process, treatment plan,medications, and discharge instructions Description: INTERVENTIONS 1. Complete learning assessment and assess knowledge base 2. Provide teaching at level of understanding 3. Provide teaching via preferred learning method(s) Outcome: Progressing Note: Evaluation of progress towards goal: Teaching provided as needed at patient's level of understanding. Problem: Discharge Planning Goal: Discharge to post-acute care, other facility, or home with appropriate resources Description: Patient's goal is: INTERVENTIONS 1. Conduct assessment to determine patient/family and health care team treatment goals, and need for post-acute services based on payer coverage, community resources, and patient preferences, and barriers to discharge 2. Coordinate with Social work, Care Navigation, and Utilization Review to arrange appropriate level of services according to patient's needs based on patient preference and payer coverage in collaboration with the physician and health care team 3. Address psychosocial, clinical, and financial barriers to discharge as identified in assessment in conjunction with the patient/family and health care team 4. Consult appropriate ancillary services (i.e.. PT/OT/ST, etc) as needed 5. Communicate with and update the patient/family, physician, and health care team regarding progress on the discharge plan 6. Identify discharge learning needs (meds, wound care, etc). 7. Arrange for needed discharge transportation as appropriate Outcome: Progressing Note: Evaluation of progress towards goal: Appropriate consults done as needed. Discharge learning needs identified. Problem: Moderate - High Risk Fall Score Description: Nolan Fall Score of =/> 25 or indicated by [facility] Assessment Goal: Patient should be free from fall Description: Interventions: 1. [place] to environment 2. Hourly rounds addressing the 4 P's (Pain, Positioning, Possessions, Potty) 3. Clear area of hazards (spills, clutter, electrical cords, unnecessary equipment) 4. Place equipment (bed & TV controls, call light, phone, urinal) within reach 5. Encourage patient to wear glasses and hearing aides as appropriate 6. Maintain bed in lowest position 7. Lock wheels on bed/wheelchair 8. Provide adequate lighting, including night light 9. Assess need for additional bedding, food/fluids, pain med's prior to sleep/routinely 10. Provide gripper slippers or personal non-skid footwear 11. Teach patient and patient client representative to maintain environment for safety and engage in all aspects of fall prevention program 12. Remind patient to call for help before getting out of bed 13. Initiate bed/chair/exit alarms supportive devices as appropriate, (chair wedge, no-skid floor mat, raised edge mattress, hip protectors) 14. Locate patient bed assignment for optimal visualization 15. Evaluate and identify Safe Patient Handling Equipment needs 16. Provide supervision when out of bed or chair 17. Utilize gait belt as needed to assist with ambulation 18. Place adaptive equipment (cane, walker) within reach 19. Request patient client representative bring adaptive equipment/mobility aids from home or obtain and provide as needed 20. Consult pharmacy regarding effects of med's affecting mobility, cognition, and alternatives 21. Obtain physician order for PT if risk factors associated with mobility are present 22. Obtain physician order for OT as appropriate 23. Utilize diversional activities 24. Educate patient and patient client representative how to maintain a safe environment during visitationtimes (notify nurse prior to leaving bedside) 25. Consider appropriateness of medical or non-er medical technician 26. Set up voiding schedule as appropriate (every 2 hours) Outcome: Progressing Note: Evaluation of progress towards goal: Patient understands fall prevention plan.Patient understands fall prevention plan. Problem: Induction Goal: Patient will verbalize understanding of induction process Description: INTERVENTION 1. Educate patient about the induction process Outcome: Progressing Note: Evaluation of progress towards goal: Patient verbalizes the understanding of induction process. Additional Comments: * Plan of Care - Iman Zuniga RN - 03/09/2025 1:39 AM EDT Problem: Pain Goal: Patient goal is pain score less than 4, able to rest, and participant in treatment plan as appropriate Description: INTERVENTIONS: 1. Encourage patient or legal client representative to report early pain and ask for pain medicine when needed 2. Assess pain using appropriate pain scale and include the scale used when documenting 3. Administer analgesics based on type and severity of pain and evaluate response within appropriate time frame 4. Implement non-pharmacological measures as appropriate and evaluate response 5. Consider cultural and social influences on pain and pain management 6. Notify LIP if interventions ineffective or patient reports new pain 7. Monitor vital signs including pulse ox, end-tidal CO2 based on pain intervention 8. Reassess pain per policy 9. Teach patient or legal client representative interventions for comforting Outcome: Progressing Note: Evaluation of progress towards goal: pt aware of pharmacological and non pharmacological interventions available and verbalized understanding to notify RN when intervention is requested, pt able to rest and participate in care of self as appropriate. Problem: Safety Goal: Patient will be injury free during hospitalization Description: INTERVENTIONS: 1. Assess patient's risk for falls and implement fall prevention plan of care per policy 2. Provide and maintain a safe environment 3. Proper use of double Identifiers 4. Medication administration using the 5 rights 5. Hand hygiene 6. Specimens are labeled at the bedside 7. Instruct patient/ patient client representative about use of safety devices 8. Include patient/ patient client representative in decisions related to safety Outcome: Progressing Note: Evaluation of progress towards goal: pt has ID band in place, 2 pt IDs used at each MAR action, 2/2 side rails up, bed remains locked in lowest position, call light and side table remain in reach. Problem: Infection Goal: Absence of infection during hospitalization Description: INTERVENTIONS 1. Assess and monitor for signs and symptoms of infection. 2. Monitor lab/diagnostic results. 3. Monitor all insertion sites i.e., indwelling lines, tubes and drains. 4. Monitor endotracheal (as able) and nasal secretions for changes in amount and color. 5. Administer medications as ordered. 6. Instruct and encourage patient and family to use good hand hygiene technique. 7. Identify and instruct patient/patient client representative in use of appropriate isolation precautionsfor identified infection/symptoms. 8. Provide and discuss with patient/patient client representative on educational MDRO sheet. 9. Encourage and monitor nutritional status daily and consult crime scene specialist if indicated. 10. Implement neutropenic guidelines as needed. Outcome: Progressing Note: Evaluation of progress towards goal: no s/s of infection present on assessment or with vitals. Problem: Knowledge Deficit Goal: Patient/patient client representative demonstrates understanding of disease process, treatment plan,medications, and discharge instructions Description: INTERVENTIONS 1. Complete learning assessment and assess knowledge base 2. Provide teaching at level of understanding 3. Provide teaching via preferred learning method(s) Outcome: Progressing Note: Evaluation of progress towards goal: Teaching provided as needed at patient's level of understanding. Problem: Discharge Planning Goal: Discharge to post-acute care, other facility, or home with appropriate resources Description: Patient's goal is: INTERVENTIONS 1. Conduct assessment to determine patient/family and health care team treatment goals, and need for post-acute services based on payer coverage, community resources, and patient preferences, and barriers to discharge 2. Coordinate with Social work, Care Navigation, and Utilization Review to arrange appropriate level of services according to patient's needs based on patient preference and payer coverage in collaboration with the physician and health care team 3. Address psychosocial, clinical, and financial barriers to discharge as identified in assessment in conjunction with the patient/family and health care team 4. Consult appropriate ancillary services (i.e.. PT/OT/ST, etc) as needed 5. Communicate with and update the patient/family, physician, and health care team regarding progress on the discharge plan 6. Identify discharge learning needs (meds, wound care, etc). 7. Arrange for needed discharge transportation as appropriate Outcome: Progressing Note: Evaluation of progress towards goal: Appropriate consults given as needed. Discharge learningneeds identified. Additional Comments: * Plan of Care - Prosper Danielle MD - 03/08/2025 11:56 PM EDT Cook balloon 80/80 placed at 2347, patient tolerated well. Will start pitocin per protocol. Prosper Danielle MD Jacket Preparer Resident, PGY-4 documented in this encounter Plan of Treatment Upcoming Encounters Date Type Department Care Team (Late st Contact Info) Description 03/19/2025 2:30 PM EDT Visit [facility] [address] [place] [id number] Shyann Lopez MD [address] [facility] [place] [address] documented as of this encounter Procedures Procedure Name Priority Date/Time Associated Diagnosis Comments EXTRA TUBES PST TOP Routine 03/11/2025 7 :15 AM EDT EXTRA TUBES Routine 03/11/2025 7:15 AM EDT CBC WITH AUTO DIFFERENTIAL Routine 03/11/2025 7:15 AM EDT SYPHILIS AB, TP-PA SYPHILIS CONFIRMATION, REFLEX ONLY Routine 03/08/2025 11:22 PM EDT RPR WITH REFLEX TO TP-PA, SERUM Routine 03/08/2025 11:22 PM EDT SYPHILIS TOTAL(UNKNOWN SYPHILIS STATUS) Routine 03/08/2025 11:22 PM EDT LDH Routine 03/08/2025 11:22 PM EDT REPEATED ABORH Routine 03/08/2025 11:22 PM EDT CBC (NO DIFF) STAT 03/08/2025 11:22 PM EDT TYPE AND SCREEN STAT 03/08/2025 11:22 PM EDT URIC ACID Routine 03/08/2025 11:22 PM EDT COMPREHENSIVE METABOLIC PANEL Routine 03/08/2025 11:22 PM EDT FENTANYL, URINE QUALITATIVE STAT 03/08/2025 11:05 PM EDT DRUG SCREEN, URINE STAT 03/08/2025 11 :05 PM EDT documented in this encounter Results * PST TOP (03/11/2025 7:15 AM EDT) Extra Tube Auto Resulted 03/11/2025 9:01 AM EDT [facility] Blood Venous blood / Unknown Venipuncture / Unknown 03/11/2025 7:15 AM EDT 03/11/2025 7:27 AM EDT us Sebastian Jorgensen MD LAB BLOOD ORDERABLES Final Res ult [facility] [address] [place] [id number], [place] [phone] * (ABNORMAL) CBC auto differential (03/11/2025 7:15 AM EDT) WBC 15.8(H) 4 - 11 x10E9/L 03/11/2025 7:42 AM EDT [facility] RBC Count 3.41(L) 3.8 - 5.2 X10E12/L 03/11/2025 7:42 AM EDT [facility] Hemoglobin 10.3(L) 11.7 - 15.5 g/dL 03/11/2025 7:42 AM EDT [facility] Hematocrit 30.6(L) 35 - 47 % 03/11/2025 7:42 AM EDT [facility] MCV 90 80 - 100 fL 03/11/2025 7:42 AM EDT [facility] MCH 30.1 27 - 34 pg 03/11/2025 7:42 AM EDT [facility] MCHC 33.6 32 - 36 g/dL 03/11/2025 7:42 AM EDT [facility] RDW 13.7 11.5 - 15 % 03/11/2025 7:42 AM EDT [facility] Platelet Count 229 150 - 450 X10E9/L 03/11/2025 7:42 AM EDT [facility] MPV 9.5 7 - 12 fL 03/11/2025 7:42 AM EDT [facility] Neutrophils % 78.6 % 03/11/2025 7:42 AM EDT [facility] Lymphocytes % 13.7 % 03/11/2025 7:42 AM EDT [facility] Monocytes % 5.7 % 03/11/2025 7:42 AM EDT [facility] Eosinophils % 1.6 % 03/11/2025 7:42 AM EDT [facility] Basophils % 0.4 % 03/11/2025 7:42 AM EDT [facility] Neutrophils Absolute (A) 12.4(H) 1.5 - 6.6 10*3/uL 03/11/2025 7:42 AM EDT [facility] Lymphocytes Absolute 2.2 1.0 - 3.5 10*3/uL 03/11/2025 7:42 AM EDT [facility] Monocytes Absolute 0.9 0.0 - 0.9 10*3/uL 03/11/2025 7:42 AM EDT [facility] Eosinophils Absolute 0.3 0.0 - 0.4 10*3/uL 03/11/2025 7:42 AM EDT [facility] Basophils Absolute 0.1 0.0 - 0.2 10*3/uL 03/11/2025 7:42 AM EDT [facility] Differential Type AUTOMATED DIFFERENTIAL 03/11/2025 7:42 AM EDT [facility] Blood Venous blood / Unknown Venipuncture / Unknown 03/11/2025 7:15 AM EDT 03/11/2025 7:27 AM EDT us Brittney Hebert MD LAB BLOOD ORDERABLES Final Resul t [facility] [address] [place] [address], * Syphilis AB, TP-PA Syphilis Confirmation, Reflex Only (03/08/2025 11:22 PM EDT) SYPHILIS AB, TP-PA SYPHILIS CONFIRMATION, REFLEX ONLY Negative Negative 03/10/2025 3:05 PM EDT [facility] Comment: Results are inconclusive for syphilis infection. Results may indicate early infection or a false-positive screen. Clinical correlation is required to distinguish between these scenarios. Repeat testing in 2-4 weeks may be helpful. For additional information on interpretation of the syphilis reverse algorithm and results, see: [email or web address]-[email or web address]_[email or web address] Test Performed by: [facility] [address] [place] [id number] Ventilator Specialist: Erik Sorto Ph.D.; CLIA# [id number] Blood Venous blood / Unknown Venipuncture / Unknown 03/08/2025 11:22 PM EDT 03/08/2025 11:37 PM EDT Rosio Henderson DO LAB ORDERABLES Final Resul t Performing Organization Address City/[facility]/ZIP Co de Phone Number [facility] [address] [place] [address], [place] * RPR with Reflex to TP-PA, serum (03/08/2025 11:22 PM EDT) RPR WITH REFLEX TO RTPPA Negative Negative 03/10/2025 10:02 AM EDT [facility] Comment: Non-treponemal antibodies not detected. Testing on a new specimen collected in 2-3 weeks is recommended if acute infection is suspected. Sample reflexed for detection of Treponema pallidum specific antibodies by the Treponema pallidum particle agglutination (TP-PA) assay. For additional information on interpretation of the syphilis reverse algorithm and results, see: [email or web address] [email or web address]_[email or web address] Test Performed by: [facility] [address] [place] [address] Ventilator Specialist: Erik Sorto Ph.D.; CLIA# [id number] Blood Venous blood / Unknown Venipuncture / Unknown 03/08/2025 11:22 PM EDT 03/08/2025 11:37 PM EDT Rosio Henderson DO LAB BLOOD ORDERABLES Final Result [facility] [address] [place] [address], [place] * ABO Rh Repeat (03/08/2025 11:22 PM EDT) ABO A 03/09/2025 5:35 AM EDT [facility] RH Positive 03/09/2025 5:35 AM EDT [facility] Blood Venous blood / Unknown Venipuncture / Unknown 03/08/2025 11:22 PM EDT 03/08/2025 11:57 PM EDT Rosio Henderson DO BLOOD BANK TEST ORDERABLES Final Result Performing Organization Address City/[facility]/ZIP Co de Phone Number [facility] BB - [address] [place] [address], [facility] [address] [place] [address], * LDH (03/08/2025 11:22 PM EDT) LDH 121 100 - 235 U/L 03/09/2025 12:04 AM EDT [facility] Blood Venous blood / Unknown Venipuncture / Unknown 03/08/2025 11:22 PM EDT 03/08/2025 11:37 PM EDT Rosio Henderson DO LAB BLOOD ORDERABLES Final Result Performing Organization Address City/[facility]/ZIP Co de Phone Number [facility] [address] [place] [address], [place] [phone] * Uric acid (03/08/2025 11:22 PM EDT) Pathologist [facility] URIC ACID 4.1 2.6 - 7.2 mg/dL 03/09/2025 12:04 AM EDT [facility] Blood Venous blood / Unknown Venipuncture / Unknown 03/08/2025 11:22 PM EDT 03/08/2025 11:37 PM EDT Rosio Henderson DO LAB BLOOD ORDERABLES Final Result Performing Organization Address City/[facility]/ZIP Co de Phone Number [facility] [address] [place] [address], [place] [phone] * (ABNORMAL) Comprehensive metabolic panel (03/08/2025 11:22 PM EDT) SODIUM 137 134 - 146 mmol/L 03/09/2025 12:04 AM [facility] POTASSIUM 3.7 3.5 - 5.0 mmol/L 03/09/2025 12:04 AM [facility] CHLORIDE 106 98 - 109 mmol/L 03/09/2025 12:04 AM [facility] CARBON DIOXIDE 23 22 - 32 mmol/L 03/09/2025 12:04 AM [facility] ANION GAP 8 5 - 15 mmol/L 03/09/2025 12:04 AM [facility] BLOOD UREA NITROGEN 6 5 - 23 mg/dL 03/09/2025 12:04 AM [facility] CREATININE 0.67 0.40 - 1.00 mg/dL 03/09/2025 12:04 AM [facility] Comment:METHOD TRACEABLE TO IDWA STANDARD GLUCOSE 99 65 - 99 mg/dL 03/09/2025 12:04 AM [facility] CALCIUM 9.1 8.5 - 10.5 mg/dL 03/09/2025 12:04 AM [facility] TOTAL PROTEIN 6.2 6.0 - 8.0 g/dL 03/09/2025 12:04 AM [facility] ALBUMIN 3.5 3.2 - 5.3 g/dL 03/09/2025 12:04 AM [facility] ALKALINE PHOSPHATASE 140(H) 39 - 130 U/L 03/09/2025 12:04 AM [facility] AST 9 <=41 U/L 03/09/2025 12:04 AM [facility] ALT 9 <=31 U/L 03/09/2025 12:04 AM [facility] BILIRUBIN,TOTAL 0.3 0.3 - 1.2 mg/dL 03/09/2025 12:04 AM [facility] EGFR Non-Race Dependent >90 >=60 ml/min/1.7 3sq.m 03/09/2025 12:04 AM [facility] Comment: Reported eGFR is based on the CKD-EPI 2020 equation that does not use a race coefficient. Blood Venous blood / Unknown Venipuncture / Unknown 03/08/2025 11:22 PM EDT 03/08/2025 11:37 PM EDT us Rosio Henderson DO LAB BLOOD ORDERABLES Final Result [facility] [address] [place] [address], * (ABNORMAL) CBC without diff (03/08/2025 11:22 PM EDT) WBC 11.3(H) 4 - 11 x10E9/L 03/08/2025 11:42 PM EDT [facility] RBC Count 3.61(L) 3.8 - 5.2 X10E12/L 03/08/2025 11:42 PM EDT [facility] Hemoglobin 10.9(L) 11.7 - 15.5 g/dL 03/08/2025 11:42 PM EDT [facility] Hematocrit 32.3(L) 35 - 47 % 03/08/2025 11:42 PM EDT [facility] MCV 89 80 - 100 fL 03/08/2025 11:42 PM EDT [facility] MCH 30.2 27 - 34 pg 03/08/2025 11:42 PM EDT [facility] MCHC 33.8 32 - 36 g/dL 03/08/2025 11:42 PM EDT [facility] RDW 13.5 11.5 - 15 % 03/08/2025 11:42 PM EDT [facility] Platelet Count 265 150 - 450 X10E9/L 03/08/2025 11:42 PM EDT [facility] MPV 9.6 7 - 12 fL 03/08/2025 11:42 PM EDT [facility] Blood Venous blood / Unknown Venipuncture / Unknown 03/08/2025 11:22 PM EDT 03/08/2025 11:37 PM EDT [facility] DO LAB BLOOD ORDERABLES Final Result [facility] [address] [place] [address], * Type and screen(includes indirect gina) (03/08/2025 11:22 PM EDT) ABO A 03/09/2025 2:25 AM EDT [facility] RH Positive 03/09/2025 2:25 AM EDT [facility] Antibody Screen Negative 03/09/2025 2:25 AM EDT [facility] Blood Venous blood / Unknown Venipuncture / Unknown 03/08/2025 11:22 PM EDT 03/08/2025 11:57 PM EDT [facility] DO BLOOD BANK TEST ORDERABLES Edited Result - Final [facility] [address] [place] [address], [facility] [address] [place] [address], * (ABNORMAL) Syphilis Total (Unknown Syphilis Status) (03/08/2025 11:22 PM EDT) SYPHILIS TOTAL 1.2(H) <=0.8 AI 03/09/2025 6:42 AM EDT [facility] Blood Venous blood / Unknown Venipuncture / Unknown 03/08/2025 11:22 PM EDT 03/08/2025 11:37 PM EDT Narrative [facility] - 03/09/2025 6:42 AM EDT REACTIVE This specimen will be sent to a reference lab for additional testing which includes RPR with reflex to TP-PA if RPR is negative. The RPR will help distinguish between infections with T. pallidum (syphilis) versus a falsely reactive treponemal antibody result. Please see the syphilis testing algorithm link below for more information. [email or web address] Rosio Henderson DO LAB BLOOD ORDERABLES Final Result Performing Organization Address [facility]/ZIP Co de Phone Number [facility] [address] [place] [address], * Fentanyl, Urine Qualitative (03/08/2025 11:05 PM EDT) FENTANYL, URINE QUAL. Negative Negative 03/09/2025 12:33 AM EDT [facility] Urine Urine / Unknown 03/08/2025 1 1:05 PM EDT 03/08/2025 11:38 PM EDT Narrative [facility] - 03/09/2025 12:33 AM EDT Fentanyl screening cutoff = 5ng/ml This report is intended for use in clinical monitoring or management of patients. Rosio Henderson DO URINE ORDERABLES Final Resu lt Performing Organization Address [facility]/ZIP Co de Phone Number [facility] [address] [place] [address], * Drug Screen, Urine (03/08/2025 11:05 PM EDT) AMPHETAMINE/METHAMP Negative Negative 03/09 12:33 AM EDT [facility] Comment:AMPH/METH screening cut off = 1000 ng/mL COCAINE METABOLITE Negative Negative 2024 12:33 AM EDT [facility] Comment:Cocaine screening cu t off value = 300 ng/mL ECSTASY Negative Negative 03/09/2025 12:33 AM EDT [facility] Comment:Ecstasy screening cu t off value = 500 ng/mL METHADONE Negative Negative 03/09/2025 12:33 AM EDT [facility] Comment:Methadone screening cut off value = 300 ng/mL. OPIATES Negative Negative 03/09/2025 12:33 AM EDT [facility] Comment: Opiates screening cut off value = 300 ng/mL This test is used for the detection of codeine, hydrocodone (>1000 ng/mL), morphine and hydromorphone (>900 ng/mL) in urine. OXYCODONE Negative Negative 03/09/2025 12:33 AM EDT [facility] Comment: Oxycodone screening cut off value = 300 ng/mL This test is used for the detection of oxycodone and oxymorphone in urine. PHENCYCLIDINE Negative Negative 03/09/2025 12:33 AM EDT [facility] Comment:Phencyclidine screen ing cut off value = 25 ng/mL CANNABINOIDS Negative Negative 03/09/2025 12:33 AM EDT [facility] Comment:Cannabinoids/THC scr eening cut off value = 50 ng/mL Urine Barbiturates Negative Negative 2024 12:33 AM EDT [facility] Comment:Barbiturates screeni ng cut off value = 200 ng/mL BENZODIAZEPINES Negative Negative 12:33 AM EDT [facility] Comment:Benzodiazepines scre ening cut off value = 200 ng/mL Urine 03/08/2025 11:0 5 PM EDT 03/08/2025 11:38 PM EDT us Rosio Henderson DO URINE ORDERABLES Final Resu lt [facility] [address] [place] [address], [place] [phone] documented in this encounter Visit Diagnoses Diagnosis Encounter for induction of labor- Primary Gestational hypertension, third trimester documented in this encounter Admitting Diagnoses Diagnosis Encounter for induction of labor documented in this encounter Administered Medications Inactive Administered Medications - up to 3 most recent administrations Medication Order MAR Action Action Date Dose Rate Site acetaminophen (TYLENOL EXTRA STRENGTH) tablet 1,000 mg 1,000 mg, oral, Every 6 hours PRN, temperature greater than 38 C, Starting on 03/10/25 at 0609 Given 03/10/2025 6:18 AM EDT 1,000 mg acetaminophen (TYLENOL EXTRA STRENGTH) tablet 1,000 mg 1,000 mg, oral, Every 8 hours PRN, moderate pain - pain scale 4-6, Starting on 03/10/25 at 0900, Given 03/11/2025 8:53 PM EDT 1,000 mg ampicillin (OMNIPEN) 2,000 mg in sodium chloride 0.9 % 100 mL IVPB W/ADAPTER 2,000 mg, intravenous, at 200 mL/hr, Administer over 30 Minutes, Every 6 hours, First dose on 03/10/25 at 0700, For Vial-2-Bag: Attach bag and vial to adapter - Use immediately after activating; dissolve drug prior to administration., Indication: Other, Specify: chorioamnionitis New Bag 03/10/2025 7:10 AM EDT 2,000 mg 200 mL/hr carboprost (HEMABATE) injection 250 mcg 250 mcg, intramuscular, Once as needed, hemorrhage management, Starting on 03/10/25 at 1126, For 1 dose, , Administer as directed by provider for Hemorrhage management. DO NOT ADMINISTER IV. Contraindicated if patient has a history of asthma or cardiovascular disease docusate sodium (COLACE) capsule 100 mg 100 mg, oral, 2 times daily, First dose on 03/10/25 at 1145, , Look-alike/sound-alike medication - verify indication for use. Given 03/12/2025 7:49 AM EDT 100 mg Given 03/11/2025 8:53 PM EDT 100 mg Given 03/11/2025 9:23 AM EDT 100 mg famotidine (PEPCID) tablet 20 mg 20 mg, oral, 2 times daily, First dose on Wed03/09/25 at 0030 Given 03/09/2025 8:18 PM EDT 20 mg Given 03/09/2025 9:02 AM EDT 20 mg Given 03/09/2025 12:26 AM EDT 20 mg fentaNYL (PF) 2 mcg/mL - bupivacaine 0.1% in sodium chloride 0.9 % PIEB with PCEA (epidural) epidural, Continuous, Starting on Wed03/09/25 at 1545, L&D Pre-Delivery, TTH only Pump programming and rate changes to be done by Anesthesia Prescriber ONLY. NO additional IM, IV, or oral opiates, sedatives, or hypnotics unless approved by Anesthesia. All additives must be preservative free. RN may discontinue epidural infusion post-procedure/delivery. RN may remove Epidural Catheter post-procedure / delivery unless otherwise specified FOR EPIDURAL USE ONLY Look-alike/sound-alike medication - verify indication for use., LOADING (Bolus) Dose: 10 mL, INTERMITTENT Bolus Dose: 10 mL, INTERMITTENT Bolus Dose Interval: 45 min, PCEA Dose: 5 mL, Lock out Interval: 10 min, One Hour Dose Limit: 40 mL New Bag 03/10/2025 2:29 AM EDT 100 mL New Bag 03/09/2025 8:14 PM EDT 100 mL Given 03/09/2025 3:25 PM EDT 10 mL ferrous sulfate tablet 325 mg 325 mg, oral, 2 times daily with meals, First dose on 03/10/25 at 1145, , Give ferrous sulfate 2 hours before or 4 hours after antacids. Given 03/12/2025 4:56 PM EDT 325 mg Given 03/12/2025 7:50 AM EDT 325 mg Given 03/11/2025 5:10 PM EDT 325 mg gentamicin (GARAMYCIN) 448 mg in sodium chloride 0.9 % 100 mL IVPB 448 mg (rounded from 449.5 mg = 5 mg/kg 89.9 kg), intravenous, at 111 mL/hr, Administer over 60 Minutes, Every 24 hours, First dose on 03/10/25 at 0700, Indication: Other, Specify: chorioamnionitis New Bag 03/10/2025 8:05 AM EDT 448 mg 111 mL/hr ibuprofen (MOTRIN) tablet 800 mg 800 mg, oral, Every 8 hours PRN, cramping, Starting on 03/10/25 at 1133, , Look-alike/sound-alike medication - verify indication for use. Take/Give with food or milk. Given 03/10/2025 8:21 PM EDT 800 mg lactated ringers bolus 500 mL, intravenous, at 968 mL/hr, Administer over 31 Minutes, As needed, to improve utero-placental perfusions and/or relieve cord compression and/or tachysystole contraction pattern, Starting on Clarice 03/08/25 at 2238, For 2 doses, (tacysystole contraction pattern = more than 5 contractions in a 10 minute segment averaged over 30 minutes). Max of 1000 mL Rate/Dose Verify 03/10/2025 2:48 AM EDT 968 mL/hr Rate/Dose Change 03/10/2025 2:20 AM EDT 968 mL/ hr Rate/Dose Change 03/09/2025 7:55 PM EDT 968 mL/ hr lactated ringers infusion 125 mL/hr, intravenous, Continuous, Starting on Clarice 03/08/25 at 2300, For 1 day, L&D Pre-Delivery Rate/Dose Change 03/10/2025 2:52 AM EDT 125 mL/hr Rate/Dose Verify 03/09/2025 9:05 PM EDT 125 mL/ hr Rate/Dose Verify 03/09/2025 8:29 PM EDT 125 mL/ hr lactated ringers infusion 83 mL/hr, intravenous, Continuous PRN, post-delivery hemostasis, Starting on 03/10/25 at 0900, For 1 day, , Administer for 4 hours. Administer with Oxytocin bolus and infusion Rate/Dose Change 03/10/2025 9:28 AM EDT 83 mL/hr 83 mL/hr lactated ringers infusion 125 mL/hr, intravenous, Continuous, Starting on 03/10/25 at 0245, For 1 day, L&D Pre-Delivery New Bag 03/10/2025 6:32 AM EDT 125 mL/hr 125 mL/hr Rate/Dose Verify 03/10/2025 5:03 AM EDT 125 mL/ hr Rate/Dose Verify 03/10/2025 4:05 AM EDT 125 mL/ hr lidocaine PF (XYLOCAINE) 10 mg/mL (1 %) injection - Pyxis Override Pull Starting on 03/10/25 at 0833, For 1 dose, Brittney Sharma: [email or web address] override Given 03/10/2025 8:59 AM EDT 300 mg methylergonovine (METHERGINE) injection 200 mcg 200 mcg, intramuscular, Once as needed, hemorrhage treatment, Starting on 03/10/25 at 1126, For 1 dose, , For hemorrhage treatment, administer as directed by provider for Hemorrhage management. DO NOT ADMINISTER IV. Contraindicated if patient has a hypersensitivity of Systolic BP greater than 140 or Diastolic BP greater than 90. Look-alike/sound-alike medication - verify indication for use. miSOPROStoL (CYTOTEC) tablet 800 mcg 800 mcg, sublingual, Once as needed, hemorrhage treatment, Starting on 03/10/25 at 1126, For 1 dose, , Administer as directed by provider for Hemorrhage management. Use only if Hypertensive and Asthmatic. Look-alike/sound-alike medication - verify indication for use. nalbuphine (NUBAIN) injection 5 mg 5 mg, intravenous, Once, On Wed03/09/25 at 0215, For 1 dose, Look-alike/sound-alike medication - verify indication for use. Given 03/09/2025 2:10 AM EDT 5 mg nalbuphine (NUBAIN) injection 5 mg 5 mg, intravenous, Once, On Wed03/09/25 at 0415, For 1 dose, Look-alike/sound-alike medication - verify indication for use. Given 03/09/2025 4:20 AM EDT 5 mg ondansetron (PF) (ZOFRAN) injection 4 mg 4 mg, intravenous, Every 4 hours PRN, nausea, vomiting, Starting on Clarice 03/08/25 at 2246, L&D Pre-Delivery, Intravenous administration preferred to be given over 2-5 minutes. Given 03/10/2025 5:19 AM EDT 4 mg Given 03/09/2025 12:20 AM EDT 4 mg oxytocin (PITOCIN) bolus from bag solution 10 Units 10 Units, intravenous, Administer over 30 Minutes, Once as needed, post-delivery hemostasis, Starting on 03/10/25 at 0900, For 1 dose, , Administer via programmable pump with lactated ringers solution Bolus from Bag 03/10/2025 8:29 AM EDT 10 Units oxytocin (PITOCIN) infusion 30 units/500 mL in lactated ringers (0.06 units/mL premix) 42 charlotte-units/min (42 mL/hr), intravenous, Continuous PRN, for post-delivery hemostasis, Starting on 03/10/25 at 0900, , Administer for 4 hours. Administer via programmable pump with lactated ringers solution 1 mL/hour = 1 charlotte-unit/min Rate/Dose Change 03/10/2025 8:59 AM EDT 42 charlotte-units/min 42 mL/hr oxytocin (PITOCIN) infusion 30 units/500 mL in lactated ringers (0.06 units/mL premix) 1-20 charlotte-units/min (1-20 mL/hr), intravenous, Titrated, Starting on Wed03/09/25 at 0100, L&D Pre-Delivery, Administer via programmable infusion pump. Starting rate is 1 milliunit/minute.Titrate by 1 milliunit/min every 30 minutes until 5 or less contractions occur in a 10 minute segment, averaged over a 30 minute period. Discontinue infusion for the following abnormal FHR tracings: -Category 3 FHR -Category 2 FHR with significant decelerations for greater than 50% of contractions, lasting longer than 60 minutes despite conservative therapeutic interventions -Minimal variability without accelerations that persist for 60 minutes despite conservative therapeutic interventions -Prolonged deceleration not resolved with conservative therapeutic interventions *Tachysystole is defined by the NICHD as more than five contractions in ten minutes, averaged over a 30-minute window., When Tachysystole is present while oxytocin is infusing, and heart rate (FHR) tracing is: Category 1: 1. Perform a maternal position change and give IV bolus of Lactated Ringers 500mL at a rate of 968 mLs/hour for a max of 1,000 mLs, observe for ten minutes. 2. If tachysystole continues, then decrease oxytocin rate by half, observe for 20 minutes, and notify provider. 3. If tachysystole does not resolve, discontinue oxytocin and notify provider. Category 2 with moderate variability and no significant decelerations: 1. Decrease oxytocin rate by half, change maternal position, give IV bolus of Lactated Ringers 500mL at a rate of 968 mLs/hour for a max of 1000 mLs, observe for 20 minutes, and notify provider. 2. If tachysystole does not resolve, discontinue oxytocin and notify provider. Category 2 with significant decelerations or Category 3: 1. Discontinue oxytocin, change maternal position, give IV bolus of Lactated Ringers 500mL at a rate of 968 mLs/hour for a max of 1000 mLs, administer oxygen via non-rebreather mask at 10L, and notify provider. If after at least a 30-minute period of observation, tachysystole resolves and pre-oxytocin checklist criteria is met, may restart oxytocin infusion at: Half of last infusing rate if oxytocin is off for less than 40 minutes. Beginning rate if oxytocin is off for greater than 40 minutes. [Maximum dose 20 milliunits/min unless specifically ordered otherwise by provider]. 1 mL/hour = 1 charlotte-unit/min Rate/Dose Verify 03/10/2025 5:03 AM EDT 11 charlotte-units/min 11 mL/hr Rate/Dose Change 03/10/2025 4:55 AM EDT 11 charlotte-units/min 11 mL/hr Rate/Dose Verify 03/10/2025 4:05 AM EDT 10 charlotte-units/min 10 mL/hr oxytocin (PITOCIN) injection 10 Units 10 Units, intramuscular, Once as needed, hemorrhage treatment, Starting on 03/10/25 at 1126, For 1 dose, , administer as directed by provider for Hemorrhage management PNV,calcium 06-eehu-suuca acid ( PLUS) 27 mg iron- 1 mg tablet 1 tablet 1 tablet, oral, Daily, First dose on 03/10/25 at 1145, Given 03/12/2025 7:50 AM EDT 1 tablet Given 03/11/2025 9:23 AM EDT 1 tablet polyethylene glycol (GLYCOLAX) packet 17 g 17 g, oral, Daily, First dose on 03/10/25 at 1145, , Look-alike/sound-alike medication - verify indication for use. Dissolve 1 packet (17 gm) in 8 ounces of water, juice, soda, coffee or tea. Given 03/12/2025 7:50 AM EDT 17 g Given 03/11/2025 9:23 AM EDT 17 g simethicone (MYLICON) chewable tablet 80 mg 80 mg, oral, 4 times daily before meals and at bedtime as needed, flatulence, abdominal discomfort caused by gas and distension, Starting on 03/10/25 at 1133, , Maximum dose 500 mg daily Given 03/11/2025 5:10 PM EDT 80 mg sodium chloride 0.9 % flush 3 mL 3 mL, intravenous, As needed, line care, before and after each intermittent use, Starting on 03/10/25 at 1126, sodium chloride 0.9 % flush 3 mL 3 mL, intravenous, Every 12 hours scheduled, First dose on 03/10/25 at 1130, tranexamic acid (CYKLOKAPRON) injection 1,000 mg 1,000 mg, intravenous, Administer over 10 Minutes, Every 30 min PRN, hemostasis/ post- hemorrhage, Starting on 03/10/25 at 1126, For 2 doses, , As directed by provider for hemostasis/ hemorrhage management. Give slow IV push over 10 minutes, may repeat one time in 30 minutes after initial dose documented in this encounter Active and Recently Administered Medications Times are shown in EDT. Scheduled Medication Order 03/10/2025 03/11/2025 03/12/2025 ampicillin (OMNIPEN) 2,000 mg in sodium chloride 0.9 % 100 mL IVPB W/ADAPTER (CANCELED) 2,000 mg, intravenous, at 200 mL/hr, Administer over 30 Minutes, Every 6 hours, First dose on 03/10/25 at 0700, For Vial-2-Bag: Attach bag and vial to adapter - Use immediately after activating; dissolve drug prior to administration., Indication: Other, Specify: chorioamnionitis 0710 (New Bag - Provider: Susan Casillas, RN)0740 (Stop Bag - Provider: Susan Casillas RN)1300 (Not Given - Provider: June Lopez RN - Reason: Other)1900 (Due) docusate sodium (COLACE) capsule 100 mg 100 mg, oral, 2 times daily, First dose on 03/10/25 at 1145, , Look-alike/sound-alike medication - verify indication for use. 1145 (Not Given - Provider: June Lopez RN - Reason: Other)2019 (Given - Provider: Priscila Holt RN) 0923 (Given - Provider: June Lopez, GONZALEZ)2052 (Given - Provider: Renay Tijerina RN) 0749 (Given - Provider: Danisha Humphries, GONZALEZ)0900 (Not Given - Provider: Danisha Humphries RN - Reason: Other - Comment: see MAR) ferrous sulfate tablet 325 mg 325 mg, oral, 2 times daily with meals, First dose on 03/10/25 at 1145, , Give ferrous sulfate 2 hours before or 4 hours after antacids. 1145 (Not Given - Provider: June Lopez RN - Reason: Other)1739 (Given - Provider: June Lopez, GONZALEZ) 0923 (Given - Provider: June Lopez RN)1710 (Given - Provider: June Lopez RN) 0750 (Given - Provider: Danisha Humphries, GONZALEZ)1656 (Given - Provider: Danisha Humphries, RN) gentamicin (GARAMYCIN) 448 mg in sodium chloride 0.9 % 100 mL IVPB (CANCELED) 448 mg (rounded from 449.5 mg = 5 mg/kg 89.9 kg), intravenous, at 111 mL/hr, Administer over 60 Minutes, Every 24 hours, First dose on 03/10/25 at 0700, Indication: Other, Specify: chorioamnionitis 0805 (New Bag - Provider: Susan Casillas RN)0905 (Stop Bag - Provider: Susan Casillas RN) PNV,calcium 15-ftjo-ovwzr acid ( PLUS) 27 mg iron- 1 mg tablet 1 tablet 1 tablet, oral, Daily, First dose on 03/10/25 at 1145, 1145 (Not Given - Provider: June Lopez RN - Reason: Other) 0923 (Given - Provider: June Lopez RN) 0750 (Given - Provider: Danisha Humphries, GONZALEZ)0900 (Not Given - Provider: Danisha Humphries RN - Reason: Other - Comment: see MAR) polyethylene glycol (GLYCOLAX) packet 17 g 17 g, oral, Daily, First dose on 03/10/25 at 1145, , Look-alike/sound-alike medication - verify indication for use. Dissolve 1 packet (17 gm) in 8 ounces of water, juice, soda, coffee or tea. 1145 (Not Given - Provider: June Lopez RN - Reason: Other) 0923 (Given - Provider: June Lopez RN) 0750 (Given - Provider: Danisha Humphries RN)0900 (Not Given - Provider: Danisha Humphries RN - Reason: Other - Comment: see MAR) sodium chloride 0.9 % flush 3 mL 3 mL, intravenous, Every 12 hours scheduled, First dose on 03/10/25 at 1130, 1130 (Not Given - Provider: June Lopez RN - Reason: IV infusing)2100 (Not Given - Provider: Priscila Holt RN - Reason: Other) 0900 (Due)2100 (Not Given - Provider: Renay Tijerina RN - Reason: Patient/family refused) 0900 (Not Given - Provider: Danisha Humphries RN - Reason: Loss of IV access) sodium chloride 0.9 % flush 3 mL 3 mL, intravenous, Every 8 hours, First dose on 03/10/25 at 1145, , Flush peripheral line per protocol 1145 (Not Given - Provider: June Lopez RN - Reason: IV infusing)1945 (Not Given - Provider: Priscila Holt RN - Reason: Other) 0345 (Due)1145 (Not Given - Provider: June Lopez RN - Reason: Other)1945 (Not Given - Provider: Renay Tijerina RN - Reason: Patient/family refused) 0345 (Not Given - Provider: Renay Tijerina RN - Reason: Loss of IV access)1145 (Due) Continuous Medication Order 03/10/2025 03/11/2025 03/12/2025 fentaNYL (PF) 2 mcg/mL - bupivacaine 0.1% in sodium chloride 0.9 % PIEB with PCEA (epidural) (CANCELED) epidural, Continuous, Starting on Wed03/09/25 at 1545, L&D Pre-Delivery, TTH only Pump programming and rate changes to be done by Anesthesia Prescriber ONLY. NO additional IM, IV, or oral opiates, sedatives, or hypnotics unless approved by Anesthesia. All additives must be preservative free. RN may discontinue epidural infusion post-procedure/delivery. RN may remove Epidural Catheter post-procedure / delivery unless otherwise specified FOR EPIDURAL USE ONLY Look-alike/sound-alike medication - verify indication for use., LOADING (Bolus) Dose: 10 mL, INTERMITTENT Bolus Dose: 10 mL, INTERMITTENT Bolus Dose Interval: 45 min, PCEA Dose: 5 mL, Lock out Interval: 10 min, One Hour Dose Limit: 40 mL 0227 (Stop Bag - Provider: Tara Davila RN)0229 (New Bag - Provider: Tara Davila RN)0230 (Controlled Substance Wasted - Provider: Tara Davila RN)0659 (Handoff - Provider: Tara Davila RN)0820 (Stop Bag - Provider: Susan Casillas RN) lactated ringers infusion () 125 mL/hr, intravenous, Continuous, Starting on Clarice 03/08/25 at 2300, For 1 day, L&D Pre-Delivery 0252 (Rate/Dose Change - Provider: Tara Davila RN)0253 (Stop Bag - Provider: Tara Davila RN) lactated ringers infusion (CANCELED) 125 mL/hr, intravenous, Continuous, Starting on 03/10/25 at 0245, For 1 day, L&D Pre-Delivery 0253 (New Bag - Provider: Tara Davila RN)0254 (Rate/Dose Verify - Provider: Tara Davila RN)0310 (Rate/Dose Verify - Provider: Tara Davila RN)0405 (Rate/Dose Verify - Provider: Tara Davila RN)0503 (Rate/Dose Verify - Provider: Tara Davila RN)0632 (New Bag - Provider: Tara Davila RN)1053 (Stop Bag - Provider: June Lopez RN - Comment: [Order ends at this time. Document the following action when infusion is complete: Stop Bag])1300 (Stop Bag - Provider: June Lopez RN) oxytocin (PITOCIN) infusion 30 units/500 mL in lactated ringers (0.06 units/mL premix) (CANCELED) 1-20 charlotte-units/min (1-20 mL/hr), intravenous, Titrated, Starting on Wed03/09/25 at 0100, L&D Pre-Delivery, Administer via programmable infusion pump. Starting rate is 1 milliunit/minute.Titrate by 1 milliunit/min every 30 minutes until 5 or less contractions occur in a 10 minute segment, averaged over a 30 minute period. Discontinue infusion for the following abnormal FHR tracings: -Category 3 FHR -Category 2 FHR with significant decelerations for greater than 50% of contractions, lasting longer than 60 minutes despite conservative therapeutic interventions -Minimal variability without accelerations that persist for 60 minutes despite conservative therapeutic interventions -Prolonged deceleration not resolved with conservative therapeutic interventions *Tachysystole is defined by the NICHD as more than five contractions in ten minutes, averaged over a 30-minute window., When Tachysystole is present while oxytocin is infusing, and heart rate (FHR) tracing is: Category 1: 1. Perform a maternal position change and give IV bolus of Lactated Ringers 500mL at a rate of 968 mLs/hour for a max of 1,000 mLs, observe for ten minutes. 2. If tachysystole continues, then decrease oxytocin rate by half, observe for 20 minutes, and notify provider. 3. If tachysystole does not resolve, discontinue oxytocin and notify provider. Category 2 with moderate variability and no significant decelerations: 1. Decrease oxytocin rate by half, change maternal position, give IV bolus of Lactated Ringers 500mL at a rate of 968 mLs/hour for a max of 1000 mLs, observe for 20 minutes, and notify provider. 2. If tachysystole does not resolve, discontinue oxytocin and notify provider. Category 2 with significant decelerations or Category 3: 1. Discontinue oxytocin, change maternal position, give IV bolus of Lactated Ringers 500mL at a rate of 968 mLs/hour for a max of 1000 mLs, administer oxygen via non-rebreather mask at 10L, and notify provider. If after at least a 30-minute period of observation, tachysystole resolves and pre-oxytocin checklist criteria is met, may restart oxytocin infusion at: Half of last infusing rate if oxytocin is off for less than 40 minutes. Beginning rate if oxytocin is off for greater than 40 minutes. [Maximum dose 20 milliunits/min unless specifically ordered otherwise by provider]. 1 mL/hour = 1 charlotte-unit/min 0014 (Stop Bag - Provider: Tara Davila RN)0015 (New Bag - Provider: Tara Davila RN)0016 (Rate/Dose Verify - Provider: Tara Davila RN)0133 (Rate/Dose Change - Provider: Tara Davila RN)0248 (Rate/Dose Verify - Provider: Tara Davila RN)0254 (Rate/Dose Verify - Provider: Tara Davila RN)0300 (Rate/Dose Change - Provider: Tara Davila RN)0310 (Rate/Dose Verify - Provider: Tara Davila RN)0401 (Rate/Dose Change - Provider: Tara Davila RN)0405 (Rate/Dose Verify - Provider: Tara Davila RN)0455 (Rate/Dose Change - Provider: Tara Davila RN)0503 (Rate/Dose Verify - Provider: Tara Davila RN)1053 (Stop Bag - Provider: June Lopez RN - Comment: [Order ends at this time. Document the following action when infusion is complete: Stop Bag]) PRN Medication Order 03/10/2025 03/11/2025 03/12/2025 acetaminophen (TYLENOL EXTRA STRENGTH) tablet 1,000 mg (CANCELED) 1,000 mg, oral, Every 6 hours PRN, temperature greater than 38 C, Starting on 03/10/25 at 0609 0618 (Given - Provider: Tara Davila RN) acetaminophen (TYLENOL EXTRA STRENGTH) tablet 1,000 mg 1,000 mg, oral, Every 8 hours PRN, moderate pain - pain scale 4-6, Starting on 03/10/25 at 0900, 2052 (Given - Provider: eRnay Tijerina RN) acetaminophen (TYLENOL) tablet 650 mg 650 mg, oral, Every 4 hours PRN, mild pain - pain scale 1-3, Starting on 03/10/25 at 0900, benzocaine-menthoL (DERMOPLAST) topical spray 1 Application 1 Application, topical, As needed, pain, perineum discomfort, Starting on 03/10/25 at 1133, , May keep at bedside bisacodyL (DULCOLAX) suppository 10 mg 10 mg, rectal, Once as needed, constipation, no relief from docusate or senna/docusate, Starting on 03/11/25 at 0000, For 1 dose, , Start 2nd day Look-alike/sound-alike medication - verify indication for use. carboprost (HEMABATE) injection 250 mcg 250 mcg, intramuscular, Once as needed, hemorrhage management, Starting on 8/9/25 at 1126, For 1 dose, , Administer as directed by provider for Hemorrhage management. DO NOT ADMINISTER IV. Contraindicated if patient has a history of asthma or cardiovascular disease carboprost (HEMABATE) injection 250 mcg 250 mcg, intramuscular, Once as needed, hemorrhage management, Starting on 03/10/25 at 1133, For 1 dose, , Administer as directed by the provider for hemorrhage management. DO NOT ADMINISTER IV. Contraindicated if patient has a history of asthma or cardiovascular disease. hydrocortisone (ANUSOL-HC) 2.5 % rectal cream 1 Application 1 Application, rectal, As needed, hemorrhoids, Starting on 03/10/25 at 1133, , May keep at bedside, Indications: hemorrhoids ibuprofen (MOTRIN) tablet 800 mg 800 mg, oral, Every 8 hours PRN, cramping, Starting on 03/10/25 at 1133, , Look-alike/sound-alike medication - verify indication for use. Take/Give with food or milk. 2020 (Given - Provider: Priscila Holt RN) lactated ringers bolus (CANCELED) 500 mL, intravenous, at 968 mL/hr, Administer over 31 Minutes, As needed, to improve utero-placental perfusions and/or relieve cord compression and/or tachysystole contraction pattern, Starting on Clarice 03/08/25 at 2238, For 2 doses, (tacysystole contraction pattern = more than 5 contractions in a 10 minute segment averaged over 30 minutes). Max of 1000 mL 0220 (Rate/Dose Change - Provider: Tara Davila RN)0248 (Rate/Dose Verify - Provider: Tara Davila RN)0251 (Stop Bag - Provider: Tara Davila RN) lactated ringers infusion ()(Linked Group 1) 83 mL/hr, intravenous, Continuous PRN, post-delivery hemostasis, Starting on 03/10/25 at 0900, For 1 day, , Administer for 4 hours. Administer with Oxytocin bolus and infusion 0928 (Rate/Dose Change - Provider: Susan Casillas RN)1359 (Stop Bag - Provider: June Lopez RN - Comment: [Order ends at this time. Document the following action when infusion is complete: Stop Bag]) methylergonovine (METHERGINE) injection 200 mcg 200 mcg, intramuscular, Once as needed, hemorrhage treatment, Starting on 03/10/25 at 1126, For 1 dose, , For hemorrhage treatment, administer as directed by provider for Hemorrhage management. DO NOT ADMINISTER IV. Contraindicated if patient has a hypersensitivity of Systolic BP greater than 140 or Diastolic BP greater than 90. Look-alike/sound-alike medication - verify indication for use. miSOPROStoL (CYTOTEC) tablet 800 mcg 800 mcg, sublingual, Once as needed, hemorrhage treatment, Starting on 03/10/25 at 1126, For 1 dose, , Administer as directed by provider for Hemorrhage management. Use only if Hypertensive and Asthmatic. Look-alike/sound-alike medication - verify indication for use. miSOPROStoL (CYTOTEC) tablet 800 mcg 800 mcg, sublingual, Once as needed, hemorrhage management, Starting on 03/10/25 at 1133, For 1 dose, , Administer as directed by the provider for hemorrhage management.Use only if Hypertensive and Asthmatic Look-alike/sound-alike medication - verify indication for use. modified lanolin (LANSINOH) 100 % cream cream 1 Application 1 Application, topical, As needed, sore/cracked nipples, Starting on 03/10/25 at 1133, , May keep at bedside ondansetron (PF) (ZOFRAN) injection 4 mg (CANCELED) 4 mg, intravenous, Every 4 hours PRN, nausea, vomiting, Starting on Clarice 03/08/25 at 2246, L&D Pre-Delivery, Intravenous administration preferred to be given over 2-5 minutes. 0519 (Given - Provider: Tara Davila, RN) oxytocin (PITOCIN) bolus from bag solution 10 Units (COMPLETED) 10 Units, intravenous, Administer over 30 Minutes, Once as needed, post-delivery hemostasis, Starting on 03/10/25 at 0900, For 1 dose, , Administer via programmable pump with lactated ringers solution 0829 (Bolus from Bag - Provider: Susan Casillas RN) oxytocin (PITOCIN) infusion 30 units/500 mL in lactated ringers (0.06 units/mL premix)(Linked Group 1) 42 charlotte-units/min (42 mL/hr), intravenous, Continuous PRN, for post-delivery hemostasis, Starting on 03/10/25 at 0900, , Administer for 4 hours. Administer via programmable pump with lactated ringers solution 1 mL/hour = 1 charlotte-unit/min 0859 (Rate/Dose Change - Provider: Susan Casillas, RN)1300 (Stop Bag - Provider: June Lopez, RN) oxytocin (PITOCIN) injection 10 Units 10 Units, intramuscular, Once as needed, hemorrhage treatment, Starting on 03/10/25 at 1126, For 1 dose, , administer as directed by provider for Hemorrhage management simethicone (MYLICON) chewable tablet 80 mg 80 mg, oral, 4 times daily before meals and at bedtime as needed, flatulence, abdominal discomfort caused by gas and distension, Starting on 03/10/25 at 1133, , Maximum dose 500 mg daily 1710 (Given - Provider: June Lopez, GONZALEZ) sodium chloride 0.9 % flush 3 mL 3 mL, intravenous, As needed, line care, before and after each intermittent use, Starting on 03/10/25 at 1126, sodium chloride 0.9 % flush 3 mL 3 mL, intravenous, As needed, line care, to maintain patency, Starting on 03/10/25 at 1133, tranexamic acid (CYKLOKAPRON) injection 1,000 mg 1,000 mg, intravenous, Administer over 10 Minutes, Every 30 min PRN, hemostasis/ post- hemorrhage, Starting on 03/10/25 at 1126, For 2 doses, , As directed by provider for hemostasis/ hemorrhage management. Give slow IV push over 10 minutes, may repeat one time in 30 minutes after initial dose tranexamic acid (CYKLOKAPRON) injection 1,000 mg 1,000 mg, intravenous, Administer over 10 Minutes, As needed, hemostasis/ hemorrhage management, Starting on 03/10/25 at 1133, For 2 doses, , As directed by the provider for hemostasis/ hemorrhage management. Give slow IV push over 10 minutes, may repeat one time 30 minutes after initial dose. yogesh Biswas (PREPARATION H TOTABLE) pad 1 Application 1 Application, topical, As needed, hemorrhoids, Starting on 03/10/25 at 1133, , May keep at bedside No Frequency Medication Order 03/10/2025 03/11/2025 03/12/2025 lidocaine PF (XYLOCAINE) 10 mg/mL (1 %) injection - Pyxis Override Pull (COMPLETED) Starting on 03/10/25 at 0833, For 1 dose, Brittney Sharma: cabinet override [phone] (Given - Provider: Susan Casillas RN) Linked Groups Order Group 1: oxytocin (PITOCIN) infusion 30 units/500 mL in lactated ringers (0.06 units/mL premix)Jump to med 42 charlotte-units/min (42 mL/hr), intravenous, Continuous PRN, for post-delivery hemostasis, Starting on 03/10/25 at 0900, , Administer for 4 hours. Administer via programmable pump with lactated ringers solution 1 mL/hour = 1 charlotte-unit/min And lactated ringers infusion ()Jump to med 83 mL/hr, intravenous, Continuous PRN, post-delivery hemostasis, Starting on 03/10/25 at 0900, For 1 day, , Administer for 4 hours. Administer with Oxytocin bolus and infusion documented in this encounter Care Teams Facilities Administrator Relationship Specialty Start Date End Date Maggie Marlow MD [address] [place], [place] [id number] PCP - General Pediatrics 12/09/23 documented as of this encounter
--- OUTSIDE RECORDS SUMMARY | 2025-03-09 15:00 | XMS_ITS | Encounter Summary ---
Author Organization [facility] tem Address [id number] [address] [place] [address] Care Team Providers Care Adjunct Psychology Professor Name Role Phone Maggie Marlow MD Primary Care Provider + [phone] Reason for Visit * Auth/Cert (Routine) Specialty Diagnoses / Procedures Referred By Contac t Referred To Contact Diagnoses Encounter for induction of labor Sebastian Jorgensen MD [address] [place] [address], [place] [address] Phone: tel: fax: Referral ID Status Reason Start Date Expiration Date Visits Re quested Visits Authorized [id number] 1 1 Encounter Details Date Type Department Care Team (Late st Contact Info) Description 03/09/2025 3:00 PM EDT Anesthesia Event [facility] - Labor [address] [place] [phone] Faiza Moon MD [address], [place] [id number] Juan Pace, B[employer] SHOP SUPERVISOR-ALL SOURCE INTELLIGENCE TECHNICIAN [address] [place] [address] Anesthesia Record Procedure Summary Procedure Name Responsible Anesthesiologist Anesthesia Start Time Anesthesia Stop Time LABOR ANALGESIA Faiza Moon MD 03/09/25 1500 03/10/25 0857 Events Date Time Event Comment 03/09/2025 1451 1500 An Start 1515 Face Time 1520 Epidural Placed 03/10/2025 0857 An Stop Meds Name Total fentaNYL (PF) 2 mcg/mL - bup ivacaine 0.1% in sodium chloride 0.9 % PIEB with PCEA (epidural) 10 mL * Agents No agents on file. * Blood No blood administrations on file. Lines, Drains, and Airways Type Details Placement Removal Peripheral IV Placement Date: 03/08/25; Placement Time: 224; Catheter Size: 18 G; Orientation: Anterior, Right; Location: Forearm; Site Prep: Chlorhexadine; Local Anes: None; Technique: Anatomical landmarks; Inserted by: Wilner Zuniga RN; Insertion Attempts: 1; Patient Tolerance: Tolerated well; Removal Date: 03/11/25; Removal Time: 235; Removal Reason: Per order/protocol 03/08/252241 by Iman Zuniga RN 03/11/25 235 by Priscila Holt RN Epidural Placement Date: 03/09/25; Placement Time: 1505 (created via procedure documentation); Location: L3-L4; Pt Tolerance: Tolerated well; Removal Date: 03/10/25; Removal Time: 1031 03/09/25 1505 by BRIANA Chacko 03/10/25 1031 by Susan Casillas RN Urethral Catheter Placement Date: 03/09/25; Placement Time: 163; Inserted by: Bear Nassar RN; Type: Triple-lumen; Balloon Size: 10 mL; Urine Returned: Yes; Removal Date: 03/10/25; Removal Time: 0823 03/09/25 1634 by Barbi Nassar RN 03/10/25 0823 by Susan Casillas RN documented in this encounter Social History Tobacco Use Types Packs/Day Years [...] on file documented as of this encounter OR Notes * Anesthesia Postprocedure Evaluation - JEANETTE Quigley - 03/11/2025 4:17 PM EDT ANESTHESIA POST-EVALUATION [facility] Procedure Summary Date: 03/09/25 Room / Location: Anesthesia Start: 1500 Anesthesia Stop: 03/10/25 0857 Procedure: LABOR ANALGESIA Diagnosis: Scheduled Providers: Responsible Provider: Faiza Moon MD Anesthesia Type: epidural ASA Status: 2 Vitals: 03/11/25 1155 BP: 118/57 Pulse: 89 Resp: 16 Temp: 36.4 ??C (97.5 ??F) SpO2: Patient Evaluated: OB Patient Participation: Complete - patient participated Patient Level of Consciousness: Awake and Alert Pain Score: 2 Pain Management: Adequate Airway Patency: Patent Anesthetic Complications: No Cardiovascular Status: Hemodynamically Stable Respiratory Status: Stable/Baseline and Room Air Post-op Hydration: Euvolemic Final Anesthesia Type: epidural Post Evaluation Comments: Status post labor epidural with no complaints. Ambulatory without weakness, no reported headache. All question addressed, comments received. No notable events documented. * Anesthesia Procedure Notes - BRIANA Chacko - 03/09/2025 3:37 PM EDT Associated Order(s): Epidural Block Procedure: Epidural Block Patient Location: OB Start Time: 03/09/2025 3:05 PM End Time: 03/09/2025 3:20 PM General Information and Staff: Service Provider: Faiza Moon MD ALL SOURCE INTELLIGENCE TECHNICIAN: JEANETTE Landon Student: BRIANA Chacko Placed By: BRIANA Chacko Checklist: Patient Identified, IV Checked, Risks and Benefits Discussed, Surgical Consent, Monitorsand Equipment Checked, Pre-op Evaluation and Timeout Performed Fire Risk Assessment Score: 0 Epidural: Patient Position: Sitting Prep: Chlorhexidine, Patient Draped and Maximum Sterile Barriers Used Monitoring: Monitor, Continuous Pulse Ox, Heart Rate, Blood Pressure and Media Director Oxygen Source: Room Air Approach: Midline Location: L3-L4 Injection Technique: SINTIA w/PFNS Injection Method: Catheter Secured with: Transparent Dressing, Taped and Skin Barrier Dressing Type: Transparent Local Infiltration: Lidocaine 1% Dose: 3 mL Needle and Epidural Catheter: Needle Type: Tuohy Flushed with PFNS 5 mL Needle Gauge: 17 G Needle Length: 9 cm OR SINTIA: 6 Catheter Type: End Hole Catheter Size: 20 G Catheter at Skin Depth: 12 cm Number of Attempts: 1 Test Dose: Negative and Lidocaine 1.5% with Epinephrine 1:200,000 Dose: 3 mL Date and Time Given: 03/09/2025 3:20 PM Patient Tolerance: Tolerated Well Assessment: Sensory Level: T10 Injection Assessment: Negative Aspiration for Blood, No Paresthesia on Injection, Negative CSF flowand Negative for S/S of Intravenous or Intrathecal Injection * Anesthesia Preprocedure Evaluation - Juan Pace APRN-DEANA - 03/09/2025 2:49 PM EDT Images from the original note were not included. ANESTHESIA PRE-PROCEDURE EVALUATION [facility] * No procedures listed * ANESTHESIA PHYSICAL EXAM Patient summary reviewed and nursing notes reviewed. Airway Mallampati: II TM distance: >3 FB Neck ROM: Full Patient is not intubated Dental Pulmonary Cardiovascular Neuro Abdominal Other Findings History reviewed. No pertinent past medical history. No past surgical history on file. -- Grass Pollen -- Shrimp OB History 2 Para 0 Term 0 0 AB 1 Living 0 SAB 1 IAB 0 Ectopic 0 Multiple 0 Live Births 0 Estimated Date of Delivery: 03/15/25 Patient Active Problem List: Cleft lip and palate, , affecting care of mother, antepartum, single gestation care, subsequent in third trimester Elevated blood-pressure reading without diagnosis of hypertension Encounter for induction of labor Scheduled Meds:?? famotidine, 20 mg, oral, BID Continuous Infusions:?? lactated ringer's, 125 mL/hr, Last Rate: 125 mL/hr (03/09/25 1310)?? lactated ringer's, 250 mL/hr?? oxytocin, 1-20 charlotte-units/min, Last Rate: 13 charlotte-units/min (03/09/25 1404) PRN Meds:.?? acetaminophen?? calcium carbonate?? lactated ringers?? lactated ringers?? lactated ringer's?? ondansetron BP 112/59 Pulse 77 Temp 36.4 ??C (97.5 ??F) (Oral) Resp 16 Ht 162.6 cm (5' 4.02 ) LMP 05/27/2024 BMI 34.00 kg/m?? Lab 03/08/25 2322 WBC 11.3* HEMOGLOBIN 10.9* HEMATOCRIT 32.3* PLATELETS 265 Lab 03/08/25 2322 POTASSIUM 3.7 CHLORIDE 106 CO2 23 BUN 6 CREATININE 0.67 CALCIUM 9.1 ALK PHOS 140* ALT 9 AST 9 ANESTHESIA PLAN ASA 2 Anesthesia Type: epidural Anesthetic risks, plan and alternatives discussed with Patient. Plan discussed with ALL SOURCE INTELLIGENCE TECHNICIAN and Attending. Specialty Monitors: Monitor Airway Management: Awake/Sedated Post op Pain Management: Epidural Analgesia PONV: High Risk Total Score: 3 Female patient Non-smoker Intended opioid administration Criteria that do not apply: History of PONV and/or Motion Sickness RCRI: Low Risk: Score of 0 = 3.9% (2.8-5.4%) Risk of major cardiac event Score of 1 = 6.0% (4.9-7.4%) Risk of major cardiac event Total Score: 0 Criteria that do not apply: Cerebrovascular Disease Ischemic Heart Disease Congestive Heart Failure Elevated Risk Surgery Pre-operative Treatment with Insulin Pre-operative Creatinine >2 mg/dL / 176.8 mol/L Patient Active Problem List Diagnosis Cleft lip and palate, , affecting care of mother, antepartum, single gestation care, subsequent in third trimester Elevated blood-pressure reading without diagnosis of hypertension Encounter for induction of labor documented in this encounter Plan of Treatment Upcoming Encounters Date Type Department Care Team (Late st Contact Info) Description 03/19/2025 2:30 PM EDT Visit [facility] [address] [place] [phone] Shyann Lopez MD [address] [facility] [phone] documented as of this encounter Procedures Procedure Name Priority Date/Time Associated Diagnosis Comments ANESTHESIA EPIDURAL BLOCK Routine 03/09/2025 3:37 PM EDT documented in this encounter Results * PM EPIDURAL (03/09/2025 3:37 PM EDT) Narrative Toya Agee SRNA - 03/09/2025 3:37 PM EDT BRIANA Chacko 03/09/2025 3:40 PM Procedure: Epidural Block Patient Location: OB Start Time: 03/09/2025 3:05 PM End Time: 03/09/2025 3:20 PM General Information and Staff: Service Provider: Faiza Moon MD ALL SOURCE INTELLIGENCE TECHNICIAN: Juan Pace APRN-ALL SOURCE INTELLIGENCE TECHNICIAN Student: BRIANA Chacko Placed By: BRIANA Chacko Checklist: Patient Identified, IV Checked, Risks and Benefits Discussed, Surgical Consent, Monitors and Equipment Checked, Pre-op Evaluation and Timeout Performed Fire Risk Assessment Score: 0 Epidural: Patient Position: Sitting Prep: Chlorhexidine, Patient Draped and Maximum Sterile Barriers Used Monitoring: Monitor, Continuous Pulse Ox, Heart Rate, Blood Pressure and Media Director Oxygen Source: Room Air Approach: Midline Location: L3-L4 Injection Technique: SINTIA w/PFNS Injection Method: Catheter Secured with: Transparent Dressing, Taped and Skin Barrier Dressing Type: Transparent Local Infiltration: Lidocaine 1% Dose: 3 mL Needle and Epidural Catheter: Needle Type: Tuohy Flushed with PFNS 5 mL Needle Gauge: 17 G Needle Length: 9 cm OR SINTIA: 6 Catheter Type: End Hole Catheter Size: 20 G Catheter at Skin Depth: 12 cm Number of Attempts: 1 Test Dose: Negative and Lidocaine 1.5% with Epinephrine 1:200,000 Dose: 3 mL Date and Time Given: 03/09/2025 3:20 PM Patient Tolerance: Tolerated Well Assessment: Sensory Level: T10 Injection Assessment: Negative Aspiration for Blood, No Paresthesia on Injection, Negative CSF flow and Negative for S/S of Intravenous or Intrathecal Injection Faiza Moon MD ANESTHESIA ORD ERABLES Edited Result - Final documented in this encounter Visit Diagnoses Not on filedocumented in this encounter Administered Medications Inactive Administered Medications - up to 3 most recent administrations Medication Order MAR Action Action Date Dose Rate Site fentaNYL (PF) 2 mcg/mL - bupivacaine 0.1% [...] Given 03/09/2025 3:25 PM EDT 10 mL documented in this encounter Care Teams Adjunct Psychology Professor Relationship Specialty Start Date End Date Maggie Marlow MD [address] [place] [address] PCP - General Pediatrics 12/09/23 documented as of this encounter
--- OUTSIDE RECORDS SUMMARY | 2025-03-14 09:00 | XMS_ITS | Encounter Summary ---
Author Organization [facility] Address [address] [place] [address] Care Team Providers Care Science And Operations Officer Name Role Phone Unavailable Primary Care Provider Unavailabl e Encounter Details Date Type Department Care Team (Latest Contact Info) Description 03/14/2025 9:00 AM EDT Visit [facility] [address] [place] [phone] Rachel Guidry CNM [address] [place] [address] problem (Primary Dx); Sore nipples due to ([facility]) Social History Tobacco Use Types Packs/Day Years Used Date Smoking Tobacco: Never Smokeless Tobacco: Former Alcohol Use Standard Drinks/Week Comments Never 0 (1 standard drink = 0.6 oz pur e alcohol) Estimated Date of Delivery Comme nts Yes 03/16/2025 Based on Ultraso und Sex and Gender Information Value Date Recorded Sex Assigned at Female 03/09/2024 9:25 AM EDT Legal Sex Female 6:16 PM EDT Gender Identity Female 03/09/2024 9:25 AM EDT Sexual Orientation Not on file documented as of this encounter Last Filed Vital Signs Vital Sign Reading Time Taken Comments Blood Pressure 110/70 03/14/2025 9:02 AM EDT Pulse 78 03/14/2025 9:02 AM EDT Temperature - - Respiratory Rate 18 03/14/2025 9:02 AM EDT Oxygen Saturation 99% 03/14/2025 9:02 AM EDT Inhaled Oxygen Concentration - - Weight 83.5 kg (184 lb) 03/14/2025 9:02 AM EDT Height 165.1 cm (5' 5 ) 03/14/2025 9:02 AM EDT Body Mass Index 30.62 03/14/2025 9:02 AM EDT documented in this encounter Progress Notes * Rachel Guidry CNM - 03/14/2025 9:00 AM EDT Everett Vivar is here for visit. She is 4 days . Complaints: has no unusual complaints Weeks at delivery: 39 week Type of delivery: Vaginal; Gender: female Baby is healthy: yes Breast or bottle feeding: breast Complaints or complications: no complications mood: well Contraception: NA Resumed Sexual activity: no Resumed Menses: no EXAM: Breasts: bilateral nipples are erect, red, tender and small blisters noted on left breast. No bloodnoted. She is wearing breast pads and she states they stick to the stuff coming out.,, She is 4 days and baby is cleft lip and palate. She is pumping and feeding bottle. Referral made with Sonya IBCLC at [facility] and I sent RX for All purpose nipple ointment to [facility] pharmacy. Contains Mupirocin 2% noah, betamethasone 0.1% noah, miconazole powder I spoke with Sonya and she will call patient and set up an appointment. ASSESSMENT/PLAN: There are no diagnoses linked to this encounter. Recheck in 4 weeks documented in this encounter Plan of Treatment Not on file documented as of this encounter Visit Diagnoses Diagnosis problem- Primary Sore nipples due to ([facility]) documented in this encounter
--- OUTSIDE RECORDS SUMMARY | 2025-03-15 08:23 | XMS_ITS | Clinical Summary ---
Author Organization [facility] Address [address] [facility], [address] [place] [address] Care Team Providers Care Ophthalmologist Retina Specialist Name Role Phone Maggie Marlow MD Primary Care Provider [phone] Allergies Active Allergy Reactions Criticality Noted Date Comments Environmental/Seasonal 06/24/2021 Shrimp Flavor Agent (Non-Screening) Shortness Of Breath,Swelling High 06/24/2021 Medications baclofen (LIORESAL) 10 MG tablet Take 10 mg by mouth 3 times daily Active cetirizine (ZYRTEC) 10 MG tablet Take 10 mg by mouth daily Active cyproheptadine (PERIACTIN) 4 MG tablet Take 4 mg by mouth daily Active naproxen (NAPROSYN) 250 MG tabletIndications: Migraine without aura and without status migrainosus, not intractable,Genera lized headaches Take 1 tablet with Benadryl and Zofran at onset of migraine. 15 tablet 1 02/08/20 19 Active Additional Information Patient not taking.Reported on 04/30/2021 diphenhydrAMINE (BENADRYL ALLERGY) 25 MG tabletIndications: Migraine without aura and without status migrainosus, not intractable,Genera lized headaches Take 1 tablet with Zofran and Naproxen at onset of migraine. 15 tablet 1 02/08/20 19 Active Additional Information Patient not taking.Reported on 04/30/2021 ondansetron (ZOFRAN ODT) 4 MG disintegrating tabletIndications: Migraine without aura and without status migrainosus, not intractable,Genera lized headaches Take 1 tablet with Benadryl and Naproxen at onset of migraine. 15 tablet 1 02/08/20 19 Active Additional Information Patient not taking.Reported on 04/30/2021 Turmeric 500 MG TABSIndications:Mi graine without aura and without status migrainosus, not intractable,Genera lized headaches Take 500 mg by mouth daily (with breakfast) 30 tablet 4 05/04/20 19 Active Additional Information Patient not taking.Reported on 04/30/2021 magnesium oxide (MAG-OX) 400 MG tabletIndications: Migraine without aura and without status migrainosus, not intractable,Genera lized headaches Take 1 tablet by mouth nightly 30 tablet 1 04/30/20 21 Active Additional Information Patient not taking.Reported on 07/07/2021 topiramate (TOPAMAX) 25 MG tabletIndications: Migraine without aura and without status migrainosus, not intractable,Genera lized headaches Take 1/2 tab daily for 1 week, then 1 tab daily. 30 tablet 1 04/30/20 21 Active Additional Information Patient not taking.Reported on 07/07/2021 ibuprofen (ADVIL;MOTRIN) 600 MG tablet Take 600 mg by mouth every 6 hours as needed 03/29/20 21 Active Active Problems Problem Noted Date Diagnosed Date Migraine without aura and wi thout status migrainosus, not intractable 02/07/2019 Nasal bleeding 02/07/2019 Generalized headaches 02/07/2019 Social History Tobacco Use Types Packs/Day Years Used Date Smoking Tobacco: Every Day Smokeless Tobacco: Never Comments Unknown Sex and Gender Information Value Date Recorded Sex Assigned at Not on file Legal Sex Female 11:05 AM EDT Gender Identity Not on file Sexual Orientation Not on file Last Filed Vital Signs Vital Sign Reading Time Taken Comments Blood Pressure 125/74 05/04/2019 9:49 AM EDT Pulse 76 05/04/2019 9:49 AM EDT Temperature - - Respiratory Rate 18 05/04/2019 9:49 AM EDT Oxygen Saturation - - Inhaled Oxygen Concentration - - Weight 60.4 kg (133 lb 4 oz) 05/04/2019 9:49 AM EDT Height 163.5 cm (5' 4.37 ) 05/04/2019 9:49 AM ED T Body Mass Index 22.61 05/04/2019 9:49 AM EDT Body Mass Index Percentile 80.93% 05/04/2019 9:4 9 AM EDT Growth Chart: [facility] (Girls, 2- 20 Years) Plan of Treatment Not on file [place] [address] PLAN Care Teams Ophthalmologist Retina Specialist Relationship Specialty Start Date End Date Maggie Marlow MD [address] [place] [address] PCP - General 01/09/19
--- OUTSIDE RECORDS SUMMARY | 2025-03-15 08:23 | XMS_ITS | Encounter Summary ---
Author Organization [facility] Address [address] [place] [address] Care Team Providers Care Driller Brake Lining Name Role Phone Unavailable Primary Care Provider Unavailabl e Encounter Details Date Type Department Care Team (Late st Contact Info) Description 02/28/2024 Orders Only [facility] OBGYN [address] [place] [phone] Rachel Guidry, EUNICEM [address] [place] [address] Amenorrhea Social History Tobacco Use Types Packs/Day Years Used Date Smoking Tobacco: Never Assessed Comments Unknown Sex and Gender Information Value Date Recorded Sex Assigned at Female 03/09/2024 9:25 AM EDT Legal Sex Female 6:16 PM EDT Gender Identity Female 03/09/2024 9:25 AM EDT Sexual Orientation Not on file documented as of this encounter Plan of Treatment Scheduled Orders Name Type Priority Associated Diagnoses Orde r Schedule US OB less than 14 weeks early Imaging Routine Amenorrhea Expected: 02/28/2024, Expires: 02/27/2025 documented as of this encounter Visit Diagnoses Diagnosis Amenorrhea Absence of menstruation documented in this encounter
--- OUTSIDE RECORDS SUMMARY | 2025-03-15 08:23 | XMS_ITS | Encounter Summary ---
Author Organization [facility] Address [address] [place] [address] Care Team Providers Care Fence Maker Name Role Phone Unavailable Primary Care Provider Unavailabl e Encounter Details Date Type Department Care Team (Late st Contact Info) Description 07/24/2024 Clinisync Result Encounter [facility] External Department Unsolicited Yamile Guidry, ELIZABETH [address] [place] [address] Social History Tobacco Use Types Packs/Day Years [...] as of this encounter Plan of Treatment Not on file documented as of this encounter Procedures Procedure Name Priority Date/Time Associated Diagnosis Comments US OB TRANSVAGINAL 07/24/2024 9: 08 AM EST documented in this encounter Results * US OB TRANSVAGINAL (07/24/2024 9:08 AM EST) Anatomical Region Laterality Modality Other 07/24/2024 9:08 AM EST Narrative 07/24/2024 9:10 AM EST The [address] [address] Ultrasound Report Signed Patient: EVERETT VIVAR MR#: [id number] : 2005 Acct:[id number] Age/Sex: 19 / F ADM Date: 07/24/24 Loc: US Attending Dr: YAMILE GUIDRY APRN, CNM Ordering Physician: YAMILE GUIDRY APRN, CNM Date of Service: 07/24/24 Procedure(s): US OB transvaginal Accession Number(s): [id number] cc: YAMILE GUIDRY APRN, CNM; Physician,Non-Staff MMiriam The [address] [address] Patient Name: EVERETT VIVAR MRN: [id number] date: 2005 Sex: F Assigned Patient Location: US Current Patient Location: US Accession/Order Number: [id number] Exam Date: 07/24/2024 07:15 Report Date: 07/24/2024 09:08 At the request of: YAMILE GUIDRY Procedure: US OB transvaginal EXAMINATION: US OB transvaginal HISTORY: amenorrhea N91.2 COMPARISON: No relevant comparison available. FINDINGS: Freitas intrauterine gestation Gestational sac: 1.92 cm, 6 weeks 2 days CRL: 6.5 mm, 6 weeks 4 days Yolk sac: 3.1 mm Heart rate: 126 bpm Identified adjacent to the gestational sac is 1.7 x 1.5 x 0.3 mm area of hypoechogenicity The uterus is normal, anteverted The ovaries are normal. Right corpus luteal cyst Clinical age: 8 weeks 2 days Clinical WALTER: 03/03/2025 Ultrasound age: 6 weeks 3 days Ultrasound WALTER: 03/16/2025 US/US OB transvaginal IMPRESSION: Viable freitas intrauterine gestation measuring 6 weeks 3 days Small subchorionic hematoma Electronically authenticated by: ANDREW PHELPS Date: 07/24/2024 09:08 Dictated By: Andrew Phelps M.D. Signed By: 07/24/24909 DD/ 7 TD/TT: Nick Setter: Procedure Note Radiology, Radiologist, MD - 07/24/2024 The [place] [id number] Ultrasound Report Signed Patient: CHANDRA VIVARR#: [id number] : 2005Acct:[id number] Age/Sex: 19 / FADM Date: 07/24/24 Loc: US Attending Dr: YAMILE GUIDRY APRN, CNM Ordering Physician: YAMILE GUIDRY APRN, CNM Date of Service: 07/24/24 Procedure(s): US OB transvaginal Accession Number(s): [id number] cc: YAMILE GUIDRY APRN, CNM; Physician,Non-Staff Mack[place] The [address] [address] Patient Name: EVERETT VIVAR MRN: [facility]:[id number] date: 2005 Sex: F Assigned Patient Location: US Current Patient Location: US Accession/Order Number: [id number] Exam Date: 07/24/2024 07:15 Report Date: 07/24/2024 09:08 At the request of: YAMILE GUIDRY Procedure: US OB transvaginal EXAMINATION: US OB transvaginal HISTORY: amenorrhea N91.2 COMPARISON: No relevant comparison available. FINDINGS: Freitas intrauterine gestation Gestational sac: 1.92 cm, 6 weeks 2 days CRL: 6.5 mm, 6 weeks 4 days Yolk sac: 3.1 mm Heart rate: 126 bpm Identified adjacent to the gestational sac is 1.7 x 1.5 x 0.3 mm area of hypoechogenicity The uterus is normal, anteverted The ovaries are normal. Right corpus luteal cyst Clinical age: 8 weeks 2 days Clinical WALTER: 03/03/2025 Ultrasound age: 6 weeks 3 days Ultrasound WALTER: 03/16/2025 US/US OB transvaginal IMPRESSION: Viable freitas intrauterine gestation measuring 6 weeks 3 days Small subchorionic hematoma Electronically authenticated by: ANDREW PHELPS Date: 07/24/2024 09:08 Dictated By: Andrew Phelps M.D. Signed By:07/24/2410 DD/ 7 TD/TT: Nick Setter: us Yamile Guidry CNM [facility] Final Resu lt documented in this encounter Visit Diagnoses Not on filedocumented in this encounter
--- OUTSIDE RECORDS SUMMARY | 2025-03-15 08:24 | XMS_ITS | Clinical Summary ---
Author Organization [facility] Address [address] [place] [address] Care Team Providers Care Agriculture Laborer Name Role Phone Unavailable Primary Care Provider Unavailabl e Allergies Active Allergy Reactions Criticality Noted Date Comments Grass Pollen(K-O-R-T-Swt Nikolai) 01/16 Shrimp Extract 01/16/2022 Medications multivitamin () 27-0.8 MG tabletIndication s: examination or test, positive result ([facility]) Take 1 tablet by mouth Daily 30 tablet 11 07/21/2024 Active ferrous sulfate (Fe Tabs) 325 (65 Fe) MG EC tabletIndication s:Anemia during in third trimester ([facility]) Take 1 tablet (325 mg) by mouth in the morning and 1 tablet (325 mg) in the evening. Take before meals. Do not crush, chew, or split. 60 tablet 11 12/29/2024 12/30/19 26 Active docusate sodium (Colace) 100 MG capsuleIndicatio ns:Anemia during in third trimester ([facility]) Take 1 capsule (100 mg) by mouth in the morning and 1 capsule (100 mg) before bedtime. 60 capsule 3 12/29/2024 04/28/20 25 Active Encounters Date Type Department Care Team Description 03/14/2025 9:00 AM EDT Visit [facility] OBGYN [address] [place] [phone] Rachel Guidry CNM problem (Primary Dx); Sore nipples due to ([facility]) 03/13/2025 Telephone [facility] [address] [place] [address] Rachel Guidry CNM 02/21/2025 Telephone [facility] [address] [place] [address] Rachel Guidry CNM 12/29/2024 Results Follow-Up [facility] OBGYN [address] [place] [address] Mary Peng MA CBC, GLUCOSE, GESTATIONAL SCREEN (50G)-135 CUTOFF 12/29/2024 Refill [facility] OBGYN [address] [place] [address] Mary Peng MA Anemia during in third trimester ([facility]) 12/27/2024 9:00 AM EDT Routine [facility] OBGYN [facility] [place] [address] Rachel Guidry CNM Encounter for care of first , third trimester ([facility]) (Primary Dx); Screening for diabetes mellitus (DM); Screening for iron deficiency anemia; Congenital anomaly 12/27/2024 Bamboo flowsheet [facility] OBGYN [address] [place] [address] Rachel Guidry CNM 12/13/2024 Results Follow-Up [facility] OBGYN [address] [place] [address] Rachel Guidry CNM US OB 14+ weeks anatomy scan from Last 3 Months Family History Relation Name Status Comments Father Alive Mother Alive Social History Tobacco Use Types Packs/Day Years Used Date Smoking Tobacco: Never Smokeless Tobacco: Former Tobacco Cessation:Counseling Given: Not Answered Alcohol Use Standard Drinks/Week Comments Never 0 (1 standard drink = 0.6 oz pur e alcohol) Estimated Date of Delivery Comme nts Yes 03/16/2025 Based on Ultraso und Sex and Gender Information Value Date Recorded Sex Assigned at Female 03/09/2024 9:25 AM EDT Legal Sex Female 6:16 PM EDT Gender Identity Female 03/09/2024 9:25 AM EDT Sexual Orientation Not on file Last Filed [...] Mass Index 30.62 03/14/2025 9:02 AM EDT Plan of Treatment Health Maintenance Due Date Last Done Comments Influenza Vaccine (#1) 2025 08/28/2008 Procedures Procedure Name Priority Date/Time Associated Diagnosis Comments GLUCOSE, GESTATIONAL SCREEN (50G)-135 CUTOFF Routine 12/27/2024 9:45 AM EDT Screening for diabetes mellitus (DM) CBC Routine 12/27/2024 9:45 AM EDT Screening for iron deficiency anemia from Last 3 Months Results * GLUCOSE, GESTATIONAL SCREEN (50G)-135 CUTOFF (12/27/2024 9:45 AM EDT) GLUCOSE, GESTATIONAL SCREEN (50G)-135 CUTOFF 118 <135 mg/dL [facility] 12/27/2024 9:45 AM EDT 12/27/2024 2:32 PM EDT Narrative Resulting Agency Comment Performing Organization Information Site ID: [id number] Name: [facility] Address: [address] [place] [phone] Director: June Feliz us Rachel DAWSON LAB BLOOD ORDERABLES Final R esult [facility] * (ABNORMAL) CBC (12/27/2024 9:45 AM EDT) WHITE BLOOD CELL COUNT 11.2(H) 3.8 - 10.8 Thousand/u L [facility] RED BLOOD CELL COUNT 3.35(L) 3.80 - 5.10 Million/uL [facility] HEMOGLOBIN 10.7(L) 11.7 - 15.5 g/dL [facility] HEMATOCRIT 32.7(L) 35.0 - 45.0 % [facility] MCV 97.6 80.0 - 100.0 fL [facility] MCH 31.9 27.0 - 33.0 pg [facility] MCHC 32.7 32.0 - 36.0 g/dL [facility] Comment: For adults, a slight decrease in the calculated MCHC value (in the range of 30 to 32 g/dL) is most likely not clinically significant; however, it should be interpreted with caution in correlation with other red cell parameters and the patient's clinical condition. RDW 12.0 11.0 - 15.0 % [facility] PLATELET COUNT 267 140 - 400 Thousand/u L [facility] MPV 10.9 7.5 - 12.5 fL [facility] Blood Venous blood specimen / Unknown 12/27/2024 9:45 AM EDT 12/27/2024 2:32 PM EDT Narrative Resulting Agency Comment Performing Organization Information Site ID: [id number] Name: [facility] Address: [address] [place] [phone] Director: June Feliz Rachel DAWSON LAB BLOOD ORDERABLES Final R esult [facility] from Last [address] [place]
--- OUTSIDE RECORDS SUMMARY | 2025-03-15 08:24 | XMS_ITS | Encounter Summary ---
Author Organization [facility] Address [address] [place] [address] Care Team Providers Care Service Support Representative Name Role Phone Rachel Guidry Primary Care Provider Unavailab le Reason for Visit * Reason Onset Date Comments Coordination Of Care 03/13/2025 Encounter Details Date Type Department Care Team ([facility] st Contact Info) Description 03/13/2025 Telephone [facility] [address] [place] [address] [address] [place] [phone] Ronel Oswald RN [address] [place] [address] Coordination Of Care Social History Tobacco Use Types Packs/Day Years Used Date Smoking Tobacco: Never Passive Smoke Exposure: Never Smokeless Tobacco: Never Comments No Sex and Gender Information Value Date Recorded Sex Assigned at Not on file Legal Sex Female 10:55 AM EDT Gender Identity Not on file Sexual Orientation Not on file documented as of this encounter Miscellaneous Notes * Telephone Encounter - Ronel Oswald RN - 03/13/2025 11:12 AM EDTSummary: close episode of care Patient delivered on ( 03/10/25 ). See Center Report for baby information. Mother-Baby link completed. Outpatient referral placed according to recommendations. EPISODE of care resolved. documented in this encounter Plan of Treatment Not on file documented as of this encounter Visit Diagnoses Not on filedocumented in this encounter Care Teams Service Support Representative Relationship Specialty Start Date End Date Rachel Guidry [address] [place] [address] PCP - General Obstetrics/Gynecology 12/21/24 documented as of this encounter
--- OUTSIDE RECORDS SUMMARY | 2025-03-15 08:24 | XMS_ITS | Encounter Summary ---
Author Organization [facility] Address [address] [place] [address] Care Team Providers Care Economic Analyst Name Role Phone Unavailable Primary Care Provider Unavailabl e Encounter Details Date Type Department Care Team (Late st Contact Info) Description 12/13/2024 Results Follow-Up [facility] OBGYN [address] [place] [phone] Rachel Guidry, CN [address] [place] [address] OB 14+ weeks anatomy scan Social History Tobacco Use Types Packs/Day Years [...]
--- OUTSIDE RECORDS SUMMARY | 2025-03-15 08:24 | XMS_ITS | Encounter Summary ---
Author Organization [facility] tem Address [id number] [address] [place] [address] Care Team Providers Care Production Mechanic Tin Cans Name Role Phone Maggie Marlow MD Primary Care Provider + [phone] Encounter Details Date Type Department Care Team (Late Contact Info) Description 12/19/2024 Orders Only Maternal- Medicine at [facility] [address] [place] [phone] Gisselle Ortiz RN Cleft lip and cleft palate, left Social History Tobacco Use Types Packs/Day Years [...] got money to buy more. Never True 12/11/2024 Within the past 12 months th e food we bought just didn't last and we didn't have money to get more. Never True 12/11/2024 Purpose - Life Answer Date Recorded Purpose and direction in life Unknown Comments Yes Sex and Gender Information Value Date Recorded Sex Assigned at Not on file Legal Sex Female 6:56 PM EDT Gender Identity Not on file Sexual Orientation Not on file documented as of this encounter Plan of Treatment Upcoming Encounters Date Type Department Care Team (Late Contact Info) Description 03/19/2025 2:30 PM EDT Visit [facility] [address] [place] [phone] Shyann Lopez MD [address] [facility] [place] [phone] documented as of this encounter Procedures Procedure Name Priority Date/Time Associated Diagnosis Comments UNLISTED LAB TEST Routine 12/11/2024 Cleft lip and cleft palate, left documented in this encounter Results * Unlisted Lab Test (12/11/2024) Blood Venous blood / Unknown 12/11/2024 us Ike Flores MD LAB BLOOD ORDERABLES Final Re sult MANUALLY TRANSCRIBED RESULTS documented in this encounter Visit Diagnoses Diagnosis Cleft lip and cleft palate, left documented in this encounter Care Teams Production Mechanic Tin Cans Relationship Specialty Start Date End Date Maggie Marlow MD [address] [place] [address] PCP - General Pediatrics 12/09/23 documented as of this encounter
--- OUTSIDE RECORDS SUMMARY | 2025-03-15 08:24 | XMS_ITS | Encounter Summary ---
Author Organization [facility] Address [address] [place] [address] Care Team Providers Care Equipment Operator Wage Hand Name Role Phone Unavailable Primary Care Provider Unavailabl e Encounter Details Date Type Department Care Team (Late st Contact Info) Description 02/21/2025 Telephone [facility] [address] [place] [phone] Rachel Guidry, [facility] [address] [place] [address] Social History Tobacco Use Types Packs/Day Years [...] encounter Miscellaneous Notes * Telephone Encounter - Mary Peng MA - 03/02/2025 11:37 AM EDT Called back and let her know that pt no longer sees [facility] for and sees [facility] * Telephone Encounter - Sirisha Raea - 02/21/2025 3:45 PM EDT Hi, my name is Albertina. I am a healthcare sales representative with [facility]. I was calling to just verify that my member, Everett. Os it is O W S L E Y date of is [id number] was just calling to verify this is the office she is treated in for her O B provider. If you could call me back, I would appreciate it. My phone number is [phone]. Thank you. documented in this encounter Plan of Treatment Not on file documented as of this encounter Visit Diagnoses Not on filedocumented in this encounter
--- OUTSIDE RECORDS SUMMARY | 2025-03-15 08:24 | XMS_ITS | Encounter Summary ---
Author Organization [facility] tem Address [id number] [address] [place] [address] Care Team Providers Care Bicycle Repairer Name Role Phone Maggie Marlow MD Primary Care Provider + [phone] Encounter Details Date Type Department Care Team (Latest Contact Info) Description 03/07/2025 Travel Social History Tobacco Use Types Packs/Day Years [...] Upcoming Encounters Date Type Department Care Team ( Contact Info) Description 03/19/2025 2:30 PM EDT Visit [facility] [address] [place] [phone] Shyann Lopez MD [address] [facility] [place] [address] documented as of this encounter Visit Diagnoses Not on filedocumented in this encounter Care Teams Bicycle Repairer Relationship Specialty Start Date End Date Maggie Marlow MD [address] [place] [address] PCP - General Pediatrics 12/09/23 documented as of this encounter
--- OUTSIDE RECORDS SUMMARY | 2025-03-15 08:24 | XMS_ITS | Encounter Summary ---
Author Organization [facility] tem Address [id number] [address] [place] [address] Care Team Providers Care Horticultural Farmworker Name Role Phone Maggie Marlow MD Primary Care Provider + [phone] Reason for Referral * Consultation (Routine) - Pending Review Specialty Diagnoses / Procedures Referred By Contac t Referred To Contact Obstetrics & Gynecology / Obstetrics and Gynecology Diagnoses Abnormal ultrasonic finding on screening of mother, antepartum Ike Flores MD [address] [place] [address] Phone: tel: fax: Estefani Wiggins, DO [address] [facility] [place] [address] [place] [address] Phone: tel: fax: Referral ID Status Reason Start Date Expiration Date Visits Requested Visits Authorized [id number] Pending Review Specialty Services Required 01/10/2025 01/10/2026 1 1 Encounter Details Date Type Department Care Team (Late st Contact Info) Description 01/10/2025 Orders Only Maternal- Medicine at [facility] [address] [place] [address] Agustina Luna RDMS Abnormal ultrasonic finding on screening of mother, antepartum (Primary Dx) Social History Tobacco Use Types Packs/Day Years [...] Info) Description 03/19/2025 2:30 PM EDT Visit [facility] [address] [place] [address] Shyann Lopez MD [address] [place] [address] Scheduled Referrals Name Type Priority Associated Diagnoses Order Schedule [facility] [place], [place] - Outpatient Referral Routine Abnormal ultrasonic finding on screening of mother, antepartum 1 Occurrences starting 01/10/2025 until 01/10/2026 documented as of this encounter Visit Diagnoses Diagnosis Abnormal ultrasonic finding on screening of mother, antepartum- Primary documented in this encounter Care Teams Horticultural Farmworker Relationship Specialty Start Date End Date Maggie Marlow MD [address] [place] [address] PCP - General Pediatrics 12/09/23 documented as of this encounter
--- OUTSIDE RECORDS SUMMARY | 2025-03-15 08:24 | XMS_ITS | Encounter Summary ---
Author Organization [facility] Address [address] [place] [address] Care Team Providers Care Medical Administrative Assistant Name Role Phone Unavailable Primary Care Provider Unavailabl e Encounter Details Date Type Department Care Team (Late st Contact Info) Description 03/13/2025 Telephone [facility] [address] [place] [phone] Rachel Guidry, [facility] [address] [place] [address] Social History Tobacco Use Types Packs/Day Years [...] encounter Miscellaneous Notes * Telephone Encounter - Shadi Baum - 03/13/2025 4:25 PM EDT Maternal Medicine called to let you know Mom gave Vag-did well and d/c'd on the 11 - ty documented in this encounter Plan of Treatment Not on file documented as of this encounter Visit Diagnoses Not on filedocumented in this encounter
--- OUTSIDE RECORDS SUMMARY | 2025-03-15 08:24 | XMS_ITS | Encounter Summary ---
Author Organization [facility] Address [address] [place] [address] Care Team Providers Care Hybrid Corn Breeder Name Role Phone Unavailable Primary Care Provider Unavailabl e Encounter Details Date Type Department Care Team (Late st Contact Info) Description 12/11/2024 External Result Encounter [facility] [address] [place] [phone] Yamile Guidry, CNM [address] [place] [address] Social History Tobacco Use Types Packs/Day Years [...] Priority Date/Time Associated Diagnosis Comments US OB 14+ WEEKS ANATOMY SCAN 12/11/2024 3:17 PM EDT documented in this encounter Results * US OB 14+ weeks anatomy scan (12/11/2024 3:17 PM EDT) Anatomical Region Laterality Modality Body Ultrasound 12/11/2024 3:17 PM EDT Narrative 12/11/2024 3:17 PM EDT THIS EXAM WAS PERFORMED AT [facility] NAME: GINGER GABRIEL : 2005 SEX: F Accession Number: [id number] ORDERING PHYSICIAN: YAMILE GUIDRY REFERRING PHYSICIAN: YAMILE GUIDRY Coding ----- --------- Procedures 65088: Ultrasound, uterus, real time with image documentation, and maternal evaluation plus detailed anatomic examination, transabdominal approach;single or first gestation Indication ----- --------- Screening for Anatomic Survey, Supervision of high risk , Known or suspected damage to fetus by drugs +THC, Obesity in History ----- --------- OB History 2. Para 0 [id number] Maternal Assessment ----- --------- Physical Exam Height 163 cm, 5 ft 4 in. Weight 80 kg, 177 lb. Initial weight 80 kg, 177 lb. BMI 30.38 kg/m???. Initial BMI 30.38 kg/m???. Weight gain 0 kg, 0 lb Method ----- --------- Transabdominal ultrasound examination ----- --------- [place] . Number of fetuses: 1 Dating ----- --------- LMP on: 05/27/2024 GA by LMP 28 w + 2 d WALTER by LMP: 03/03/2025 Previous Ultrasound on: 07/24/2024 Type of prior assessment: CRL U/S measurement at prior assessment date 6.5 mm GA by previous U/S 26 w + 4 d WALTER by previous Ultrasound: 03/15/2025 Ultrasound examination on: 12/11/2024 GA by U/S based upon: AC, BPD, Femur, HC GA by U/S 27 w + 1 d WALTER by U/S: 03/11/2025 Assigned: based on ultrasound (CRL), selected on 12/11/2024 Assigned GA 26 w + 4 d Assigned WALTER: 03/15/2025 General Evaluation ----- --------- Cardiac activity Present. FHR 141 bpm. Presentation: cephalic Placenta: Placental site: posterior, away from cervical os Umbilical cord: Cord vessels: 3 vessel cord. Insertion site: normal insertion Amniotic fluid: Amount of AF: normal amount. MVP 5.2 cm Biometry ----- --------- Standard BPD 70.8 mm 28w 3d 91% Hadlock OFD 88.7 mm 28w 4d 95% Gato HC 255.3 mm 27w 5d 63% Hadlock Cerebellum tr 29.8 mm 26w 0d 46% Vinny AC 214.0 mm 25w 6d 22% Hadlock Femur 48.6 mm 26w 2d 28% Hadlock Humerus 44.3 mm 26w 2d 36% Gato HC / AC 1.19 EFW 927 g 31% Hadlock EFW (lb) 2 lb EFW (oz) 1 oz EFW by: Hadlock ([id number]-FL) Extended Tibia 41.5 mm 26w 0d 27% Gato Net Developer Software Engineer C 2.9 mm CM 4.5 mm 5% Nicolaides Inner IOD 19.1 mm Outer IOD 44.8 mm Head / Face / Neck Cephalic index 0.80 63% Nicolaides Nasal bone: present Extremities / Bony Struc FL / BPD 0.69 FL / HC 0.19 FL / AC 0.23 Other Structures FHR 141 bpm Anatomy ----- --------- The following structures appear abnormal: Face: Lips: cleft upper lip: right unilateral. Maxilla: cleft: on the right side. The following structures appear normal: Head/Neck: Cranium. Lateral ventricles. Choroid plexus. Midline falx. Cavum septi pellucidi. Cerebellum. Cisterna magna. Parenchyma. Vermis. Neck. Face Nose. Nasal bone. Mandible. Orbits. Heart/Thorax: 7-xflxui-yojuruk view. Situs. Bicaval view. Interventricular septum. Great vessels. Cardiac position. Cardiac axis. Cardiac size. Cardiac rhythm. Diaphragm. Abdomen: Abdom. wall. Cord insertion. Stomach. Kidneys. Bladder. Small bowel. Large bowel. Right renal artery. Left renal artery. Genitals. Spine: Cervical spine. Thoracic spine. Lumbar spine. Sacral spine. Extremities/Skeleton: Right upper arm. Right forearm. Right hand. Left upper arm. Left forearm. Left hand. Right upper leg. Right lower leg. Right foot. Left upper leg. Left lower leg. Left foot. The following structures could not be adequately visualized: Face Profile. Heart / Thorax 4-chamber view. RVOT view. LVOT view. 3-vessel view. Aortic arch view. The following structures could not be examined: Heart / Thorax Ductal arch view. Right lung. Left lung. Maternal Structures ----- --------- Uterus Visualized Cervix Visualized Approach - Transabdominal Right Ovary Not visualized Left Ovary Not visualized Cul de Sac Suboptimal Impression ----- --------- Single viable intrauterine consistent with 26w 4d with an WALTER of 03/15/2025. Amniotic fluid MVP measures 5.2 cm. Cleft lip visualized. Recommendations ----- --------- Please see [facility] documentation from today. Subsequent follow up or other follow up as clinically determined by primary OB provider unless otherwise specified by M. Results forwarded to ordering provider so they can follow up with the patient as necessary. Procedure Note Radiology, RadiologistMD - 12/11/2024 THIS EXAM WAS PERFORMED AT [facility] NAME: GINGER GABRIEL : 2005 SEX: F Accession Number: [id number] ORDERING PHYSICIAN: YAMILE GUIDRY REFERRING PHYSICIAN: YAMILE GUIDRY Coding ----- --------- Procedures [id number]: Ultrasound, uterus, real time with imagedocumentation, and maternal evaluation plus detailed anatomic examination, transabdominalapproach;single or first gestation Indication ----- --------- Screening for Anatomic Survey, Supervision of high risk , Knownor suspected damage to fetus by drugs +THC, Obesity in History ----- --------- OB History 2. Para 0 [id number] Maternal Assessment ----- --------- Physical Exam Height 163 cm, 5 ft 4 in. Weight 80 kg, 177 lb. Initialweight 80 kg, 177 lb. BMI 30.38 kg/m???. Initial BMI 30.38 kg/m???. Weight gain 0 kg, 0 lb Method ----- --------- Transabdominal ultrasound examination ----- --------- [place] . Number of fetuses: 1 Dating ----- --------- LMP on: 05/27/2024 GA by LMP 28 w + 2 d WALTER by LMP: 03/03/2025 Previous Ultrasound on: 07/24/2024 Type of prior assessment: CRL U/S measurement at prior assessment date 6.5 mm GA by previous U/S 26 w + 4 d WALTER by previous Ultrasound: 03/15/2025 Ultrasound examination on: 12/11/2024 GA by U/S based upon: AC, BPD, Femur, HC GA by U/S 27 w + 1 d WALTER by U/S: 03/11/2025 Assigned: based on ultrasound (CRL), selected on 12/11/2024 Assigned GA 26 w + 4 d Assigned WALTER: 03/15/2025 General Evaluation ----- --------- Cardiac activity Present. FHR 141 bpm. Presentation: cephalic Placenta: Placental site: posterior, away from cervical os Umbilical cord: Cord vessels: 3 vessel cord. Insertion site: normalinsertion Amniotic fluid: Amount of AF: normal amount. MVP 5.2 cm Biometry ----- --------- Standard BPD 70.8 mm 28w 3d 91% Hadlock OFD 88.7 mm 28w 4d 95% Gato HC 255.3 mm 27w 5d 63% Hadlock Cerebellum tr 29.8 mm 26w 0d 46% Hill AC 214.0 mm 25w 6d 22% Hadlock Femur 48.6 mm 26w 2d 28% Hadlock Humerus 44.3 mm 26w 2d 36% Gato HC / AC 1.19 EFW 927 g 31% Hadlock EFW (lb) 2 lb EFW (oz) 1 oz EFW by: Hadlock ([id number]-FL) Extended Tibia 41.5 mm 26w 0d 27% Gato Net Developer Software Engineer C 2.9 mm CM 4.5 mm 5% Nicolaides Inner IOD 19.1 mm Outer IOD 44.8 mm Head / Face / Neck Cephalic index 0.80 63% Nicolaides Nasal bone: present Extremities / Bony Struc FL / BPD 0.69 FL / HC 0.19 FL / AC 0.23 Other Structures FHR 141 bpm Anatomy ----- --------- The following structures appear abnormal: Face: Lips: cleft upper lip: right unilateral. Maxilla: cleft: on theright side. The following structures appear normal: Head/Neck: Cranium. Lateral ventricles. Choroid plexus. Midline falx.Cavum septi pellucidi. Cerebellum. Cisterna magna. Parenchyma. Vermis. Neck. Face Nose. Nasal bone. Mandible. Orbits. Heart/Thorax: 6-cbieim-jutewdk view. Situs. Bicaval view. Interventricularseptum. Great vessels. Cardiac position. Cardiac axis. Cardiac size. Cardiac rhythm. Diaphragm. Abdomen: Abdom. wall. Cord insertion. Stomach. Kidneys. Bladder. Smallbowel. Large bowel. Right renal artery. Left renal artery. Genitals. Spine: Cervical spine. Thoracic spine. Lumbar spine. Sacral spine. Extremities/Skeleton: Right upper arm. Right forearm. Right hand. Leftupper arm. Left forearm. Left hand. Right upper leg. Right lower leg. Right foot. Left upper leg. Left lower leg. Leftfoot. The following structures could not be adequately visualized: Face Profile. Heart / Thorax 4-chamber view. RVOT view. LVOT view. 3-vessel view. Aorticarch view. The following structures could not be examined: Heart / Thorax Ductal arch view. Right lung. Left lung. Maternal Structures ----- --------- Uterus Visualized Cervix Visualized Approach - Transabdominal Right Ovary Not visualized Left Ovary Not visualized Cul de Sac Suboptimal Impression ----- --------- Single viable intrauterine consistent with 26w 4d with an WALTER of03/15/2025. Amniotic fluid MVP measures 5.2 cm. Cleft lip visualized. Recommendations ----- --------- Please see [facility] documentation from today. Subsequent follow up or other follow up as clinically determined byprimary OB provider unless otherwise specified by MFM. Results forwarded to ordering provider so they can follow up with thepatient as necessary. us Yamile DAWSON IMG OB US PROCEDURES Final R esult documented in this encounter Visit Diagnoses Not on filedocumented in this encounter
--- OUTSIDE RECORDS SUMMARY | 2025-03-15 08:24 | XMS_ITS | Clinical Summary ---
Author Organization [facility] Address [address] [place] [address] Care Team Providers Care Water Gas Operator Name Role Phone Rachel Guidry Primary Care Provider Unavailab le Allergies Active Allergy Reactions Criticality Noted Date Comments Shrimp Anaphylaxis High 01/16/2022 Medications PNV no.95/ferrous fum/folic ac ( ORAL) Take by mouth. Active ferrous sulfate 325 mg (65 mg iron) tablet Take by mouth. Active Encounters Date Type Department Care Team Description 03/13/2025 Telephone [facility] [address] [phone] Ronel Oswald, GONZALEZ Coordination Of Care 02/05/2025 Documentation Only [facility] [address] [phone] Ronel Oswald RN 01/19/2025 Telephone [facility] [address] [phone] Annette Mckinley, GONZALEZ Coordination Of Care 01/16/2025 2:00 PM EDT Office Visit [facility] [address] [phone] Tre Bueno MD Consult Discharge Disposition: Home 01/16/2025 Travel 12/22/2024 Telephone [facility] [address] [phone] Betty Bourgeois Case Management 12/22/2024 Documentation Only [facility] [address] [phone] AndreiLouisa Left message to schedule . 12/21/2024 Telephone [facility] [address] [place] [address] Ronel Oswald, horse trainer/establishme nt Of Care from Last 3 Months Social History Tobacco Use Types Packs/Day Years Used Date Smoking Tobacco: Never Passive Smoke Exposure: Never Smokeless Tobacco: Never Tobacco Cessation:Counseling Given: Not Answered Comments No Sex and Gender Information Value Date Recorded Sex Assigned at Not on file Legal Sex Female 10:55 AM EDT Gender Identity Not on file Sexual Orientation Not on file Plan of Treatment Health Maintenance Due Date Last Done Comments Dental Oral Exam 2005 Dental Hygiene (Due every 6 months) 2006 MMR Vaccine (1 of 1 - Standa rd series) 2006 DTaP/Tdap/Td Vaccine (1 - Tdap) 2012 Varicella Vaccine (1 of 2 - 13+ 2-dose series) 2018 HPV Vaccine (1 - 3-dose series) 2020 Meningococcal B Vaccine (1 o f 2 - Standard) 2021 Hepatitis B Vaccine (1 of 3 - 19+ 3-dose series) 2024 COVID-19 Vaccine (1 - 2023-2 5 season) 2024 Influenza Vaccine (#1) 2025 08/28/2008 HIB Vaccine Aged Out No longer eligi ble based on patient's age to complete this topic Hepatitis A Vaccine Aged Out No longe r eligible based on patient's age to complete this topic IPV Vaccine Aged Out No longer eligi ble based on patient's age to complete this topic Meningococcal ACWY Vaccine Aged Out N o longer eligible based on patient's age to complete this topic Pneumococcal Vaccine Aged Out No long er eligible based on patient's age to complete this topic RSV Immunization (No Doses Required) Completed RSV, Nirsevimab Immunization Aged Out No longer eligible based on patient's age to complete this topic Rotavirus Vaccine Aged Out No longer eligible based on patient's age to complete this topic Insurance [facility] Care Teams Water Gas Operator Relationship Specialty Start Date End Date Rachel Guidry [address] [place] [address] PCP - General Obstetrics/Gynecology 12/21/24
--- OUTSIDE RECORDS SUMMARY | 2025-03-15 08:24 | XMS_ITS | Encounter Summary ---
Author Organization [facility] tem Address [id number] [address] 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 Ike Flores MD [address], [address] [place] [address] Phone: tel: fax: [facility] [address] [place] [address] Phone: tel: fax: Referral ID Status Reason Start Date Expiration Date Visits Requested Visits Authorized [id number] Pending Review Specialty Services Required 01/23/2025 01/23/2026 1 1 Encounter Details Date Type Department Care Team (Late st Contact Info) Description 01/23/2025 Orders Only Maternal- Medicine at [facility] [address] [place] [address] Agustina Luna RDMS 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 Never True 01/24/2025 Within the past 12 months th e food we bought just didn't last and we didn't have money to get more. Never True 01/24/2025 Purpose - Life Answer Date Recorded Purpose and direction in life Unknown Comments Yes Sex and Gender Information Value Date Recorded Sex Assigned at Not on file Legal Sex Female 6:56 PM EDT Gender Identity Not on file Sexual Orientation Not on file documented as of this encounter Plan of Treatment Upcoming Encounters Date Type Department Care Team (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
--- OUTSIDE RECORDS SUMMARY | 2025-03-15 08:24 | XMS_ITS | Encounter Summary ---
Author Organization [facility] Address [address] [place] [address] Care Team Providers Care Manager Of Community Relations Name Role Phone Unavailable Primary Care Provider Unavailabl e Encounter Details Date Type Department Care Team (Late st Contact Info) Description 11/29/2024 Results Follow-Up [facility] OBGYN [address] [place] [phone] Rachel Guidry CNM [address] [place] [address] C. trachomatis / N. gonorrhoeae, DNA probe Social History Tobacco Use Types Packs/Day Years [...]
--- OUTSIDE RECORDS SUMMARY | 2025-03-15 08:24 | XMS_ITS | Encounter Summary ---
Author Organization [facility] Address [address] [place] [address] Care Team Providers Care Red Hat Linux Administrator Name Role Phone Unavailable Primary Care Provider Unavailabl e Encounter Details Date Type Department Care Team (Late st Contact Info) Description 12/29/2024 Results Follow-Up [facility] OBGYN [address] [place] [phone] Mary Peng MA CBC, GLUCOSE, GESTATIONAL SCREEN [phone] CUTOFF Social History Tobacco Use Types Packs/Day Years [...]
--- OUTSIDE RECORDS SUMMARY | 2025-03-15 08:24 | XMS_ITS | Clinical Summary ---
Author Organization [facility] [employer] tem Address [id number] [address] [place] [address] Care Team Providers Care Certified Medical Technician Assistant Name Role Phone Maggie Marlow MD Primary Care Provider [phone] Allergies Active Allergy Reactions Criticality Noted Date Comments Grass Pollen 01/16/2022 Shrimp 01/16/2022 Medications cyclobenzaprin e (FLEXERIL) 10 mg tablet Take 1 tablet (10 mg total) by mouth 3 (three) times a day as needed for muscle spasms. 30 tablet 4 Active Additional Information Patient not taking.Reported on 02/28/2025 no115/iron/fol ic acid ( 19 ORAL) Take by mouth. Activ e docusate sodium (COLACE) 100 mg capsule Take 1 capsule (100 mg total) by mouth in the morning and 1 capsule (100 mg total) before bedtime. 5 04/28/20 25 Active ferrous sulfate 325 (65 FE) mg EC tablet Take 1 tablet (325 mg total) by mouth. 5 12/30/19 26 Active famotidine (PEPCID) 20 mg tablet Take 1 tablet (20 mg total) by mouth in the morning and 1 tablet (20 mg total) before bedtime. 60 tablet 1 5 Active acetaminophen (TYLENOL EXTRA STRENGTH) 500 mg tablet Take 2 tablets (1,000 mg total) by mouth every 8 (eight) hours as needed for pain. 30 tablet 5 Active ibuprofen (MOTRIN) 800 mg tablet Take 1 tablet (800 mg total) by mouth every 8 (eight) hours as needed (cramping). 30 tablet 5 Active ibuprofen (ADVIL,MOTRIN) 600 mg tablet Take 1 tablet (600 mg total) by mouth every 6 (six) hours as needed for pain. 30 tablet 1 02/22/20 25 Discontin ued(Pregn fatou) ibuprofen (MOTRIN) 600 mg tablet Take 1 tablet (600 mg total) by mouth every 6 (six) hours as needed for pain. 30 tablet 4 02/22/20 25 Discontin ued(Pregn fatou) Active Problems Patient Care Coordination No te Formatting of this note migh t be different from the original. CARE COORDINATION DIAGNOSIS: Left cleft lip and palate Referring OB: Emmanuel Guidry CNM MFM: Mark Maternal Hx: MSAFP: cfDNA: Drawn 12/11/24 Carrier: Amnio: []Genetic Counselling: []Peds Cardiology: []Peds Urology: []Peds Ortho: []Peds Surgery: []Peds Neurology: []Peds Neurosurgery: [x]Peds Craniofacial: Referral sent to [facility], per pt request 12/20/24 [x]NICU Consult: Sched 02/07/25 []Palliative Care Consult: []SGM: [][facility]: [][place]: [] MRI: [][facility]: [][facility]: [][facility]: [x]JAZMYNE CHS: completed Delivery Recommendation: [] Term at local hospital [x] Term at [facility] Surveillance Plan: [x] F/U Survey sched 01/23/[address] Flores OV [] Growth q __ weeks [] Dopplers q __ weeks [] Echo at __ weeks [] Cervical length q __ weeks [] TTTS q __ weeks [] Wkly NST/MARTY starting at __ weeks [] 2x/wk NST/MARTY starting at __ weeks Problem Noted Date Diagnosed Date Encounter for induction of labor 03/08/2025 Elevated blood-pressure read ing without diagnosis of hypertension 02/28/2025 care, [facility] 02/20/2025 Overview (02/20/2025): Transfer from [place] Initial and 28 week cbc, one hr gct completed Cleft lip and palate, , affecting care of mother, antepartum, single gestation 12/11/2024 Overview (02/28/2025): [facility]iofacial -NICU consult scheduled for 02/07/25- done -Growth US every 4 weeks - Growth 01/23/25: cephalic, posterior placenta, MVP 3.8cm, EFW 1813g (15%), AC 13% - growth 02/21/25: vertex, MVP 4.6cm, EFW 24% Delivery 39-40 weeks Encounters Date Type Department Care Team Description 03/09/2025 3:00 PM EDT Anesthesia Event [facility] - Labor [address] [place] [address] Faiza Moon MD Simmons, Christopher D, EXPERIENCE DESIGN DIRECTOR-FUNDS TRANSFER CLERK 03/08/2025 9:48 PM EDT - 03/12/2025 4:50 PM EDT Hospital Encounter [facility] - GEN 4 [address] [place] [address] Sebastian Jorgensen MD Gestational hypertension, third trimester (Primary Dx) Discharge Disposition: Home 03/07/2025 8:45 AM EDT Routine [facility] - Women's Services [address] [place] [address] Shyann Lopez MD GA: 38w6d 03/07/2025 Travel 02/28/2025 8:30 AM EDT Routine [facility] - Women[facility] Services [address] [place] [address] Faby Amaya MD GA: 37w6d 02/28/2025 Travel 02/21/2025 3:30 PM EDT Routine [facility] - Women[facility] Services [address] [place] [address] Shyann Lopze MD GA: 36w6d 02/21/2025 Travel 02/07/2025 2:45 PM EDT Routine Center [facility] - Women's Services [address] [place] [address] Saira Wiggins DO GA: 34w6d 02/07/2025 Travel 02/07/2025 Documentation [facility] NICU Physician Sign In [phone] Patel Ellison MD MPH 01/24/2025 2:45 PM EDT Initial Center [facility] Women's Services [address] [place] [address] Saira Wiggins DO GA: 32w6d 01/23/2025 2:30 PM EDT Office Visit Maternal- Medicine at [facility] [address] [place] [address] Ike Flores MD Cleft lip and cleft palate, left (Primary Dx) 01/23/2025 1:23 PM EDT - 01/23/2025 11:59 PM EDT Hospital Encounter [facility] - [facility] [address] [place] [address] Cleft lip and cleft palate, left Discharge Disposition: Home 01/23/2025 Orders Only Maternal- Medicine at [facility] [address] [place] [address] Agustina Luna RDMS Unilateral complete cleft palate with cleft lip (Primary Dx) 01/23/2025 Travel 01/10/2025 Orders Only Maternal- Medicine at [facility] [address] [place] [address] Agustina Luna RDMS Abnormal ultrasonic finding on screening of mother, antepartum (Primary Dx) 12/19/2024 Orders Only Maternal- Medicine at [facility] [address] [place] [address] Gisselle Ortiz, RN Cleft lip and cleft palate, left from Last 3 Months Immunizations No known immunizations Social History Tobacco Use Types Packs/Day Years Used Date Smoking Tobacco: Never Passive Smoke Exposure: Yes Smokeless Tobacco: Never Tobacco Cessation:Counseling Given: Not Answered Alcohol Use [...] Mass Index 31.96 03/09/2025 7:00 AM EDT Plan of Treatment Upcoming Encounters Date Type Department Care Team (Late st Contact Info) Description 03/19/2025 2:30 PM EDT Visit [place] [facility] - Women's Services [address] [place] [address] Shyann Lopez MD [address] [facility] [place] [address] Health Maintenance Due Date Last Done Comments Chlamydia Screening 2005 Depression Screening 2017 Adult BMI Follow Up Plan 2023 DTaP,Tdap and Td Vaccines (1 - Tdap) 2024 Influenza Vaccine 04/02/2025 Adult BMI Screening 03/12/2026 03/12/2025 Tobacco Screening 03/12/2026 03/12/2025 Medical Devices Not on file Procedures Procedure Name Priority Date/Time Associated Diagnosis Comments EXTRA TUBES PST TOP Routine 03/11/2025 7 :15 AM EDT EXTRA TUBES Routine 03/11/2025 7:15 AM EDT CBC WITH AUTO DIFFERENTIAL Routine 03/11/2025 7:15 AM EDT ANESTHESIA EPIDURAL BLOCK Routine 03/09/2025 3:37 PM EDT REPEATED ABORH Routine 03/08/2025 11:22 PM EDT TYPE AND SCREEN STAT 03/08/2025 11:22 PM EDT SYPHILIS AB, TP-PA SYPHILIS CONFIRMATION, REFLEX ONLY Routine 03/08/2025 11:22 PM EDT RPR WITH REFLEX TO TP-PA, SERUM Routine 03/08/2025 11:22 PM EDT LDH Routine 03/08/2025 11:22 PM EDT URIC ACID Routine 03/08/2025 11:22 PM EDT COMPREHENSIVE METABOLIC PANEL Routine 03/08/2025 11:22 PM EDT CBC (NO DIFF) STAT 03/08/2025 11:22 PM EDT SYPHILIS TOTAL(UNKNOWN SYPHILIS STATUS) Routine 03/08/2025 11:22 PM EDT FENTANYL, URINE QUALITATIVE STAT 03/08/2025 11:05 PM EDT DRUG SCREEN, URINE STAT 03/08/2025 11 :05 PM EDT STREP B SCREEN Routine 02/21/2025 4:30 PM EDT care, subsequent in third trimester US MFM OB FOLLOW-UP, 1 FETUS Routine 02/21/2025 4:12 PM EDT Cleft lip and cleft palate, left US MFM OB FOLLOW-UP, 1 FETUS Routine 01/23/2025 2:24 PM EDT Cleft lip and cleft palate, left HEMOGLOBIN AND HEMATOCRIT, BLOOD Routine 12/27/2024 PLATELET COUNT Routine 12/27/2024 GLU 1H POST 50G LOAD Routine 12/27/2024 from Last 3 Months Results * PST TOP (03/11/2025 7:15 AM EDT) Pathologist [facility] Extra Tube Auto Resulted 03/11/2025 9:01 AM EDT [facility] Blood Venous blood / Unknown Venipuncture / Unknown 03/11/2025 7:15 AM EDT 03/11/2025 7:27 AM EDT us Sebastian Jorgensen MD LAB BLOOD ORDERABLES Final Res ult [facility] [address] [place] [address], [place] [phone] * (ABNORMAL) CBC auto differential (03/11/2025 7:15 AM EDT) WBC 15.8(H) 4 - 11 x10E9/L 03/11/2025 7:42 AM EDT [facility] RBC Count 3.41(L) 3.8 - 5.2 X10E12/L 03/11/2025 7:42 AM EDT [facility] Hemoglobin 10.3(L) 11.7 - 15.5 g/dL 03/11/2025 7:42 AM EDT [facility] Hematocrit 30.6(L) 35 - 47 % 03/11/2025 7:42 AM EDT [facility] MCV 90 80 - 100 fL 03/11/2025 7:42 AM EDT [facility] MCH 30.1 27 - 34 pg 03/11/2025 7:42 AM EDT [facility] MCHC 33.6 32 - 36 g/dL 03/11/2025 7:42 AM EDT [facility] RDW 13.7 11.5 - 15 % 03/11/2025 7:42 AM EDT [facility] Platelet Count 229 150 - 450 X10E9/L 03/11/2025 7:42 AM EDT [facility] MPV 9.5 7 - 12 fL 03/11/2025 7:42 AM EDT [facility] Neutrophils % 78.6 % 03/11/2025 7:42 AM EDT [facility] Lymphocytes % 13.7 % 03/11/2025 7:42 AM EDT [facility] Monocytes % 5.7 % 03/11/2025 7:42 AM EDT [facility] Eosinophils % 1.6 % 03/11/2025 7:42 AM EDT [facility] Basophils % 0.4 % 03/11/2025 7:42 AM EDT [facility] Neutrophils Absolute (A) 12.4(H) 1.5 - 6.6 10*3/uL 03/11/2025 7:42 AM EDT [facility] Lymphocytes Absolute 2.2 1.0 - 3.5 10*3/uL 03/11/2025 7:42 AM EDT [facility] Monocytes Absolute 0.9 0.0 - 0.9 10*3/uL 03/11/2025 7:42 AM EDT [facility] Eosinophils Absolute 0.3 0.0 - 0.4 10*3/uL 03/11/2025 7:42 AM EDT [facility] Basophils Absolute 0.1 0.0 - 0.2 10*3/uL 03/11/2025 7:42 AM EDT [facility] Differential Type AUTOMATED DIFFERENTIAL 03/11/2025 7:42 AM EDT [facility] Blood Venous blood / Unknown Venipuncture / Unknown 03/11/2025 7:15 AM EDT 03/11/2025 7:27 AM EDT us Brittney Hebert MD LAB BLOOD ORDERABLES Final Resul t [facility] [address] [place] [address], * PM EPIDURAL (03/09/2025 3:37 PM EDT) Narrative Toya Agee SRNA - 03/09/2025 3:37 PM EDT BRIANA Chacko 03/09/2025 3:40 PM Procedure: Epidural Block Patient Location: OB Start Time: 03/09/2025 3:05 PM End Time: 03/09/2025 3:20 PM General Information and Staff: Service Provider: Faiza Moon MD FUNDS TRANSFER CLERK: Juan Pace APRN-FUNDS TRANSFER CLERK Student: BRIANA Chacko Placed By: BRIANA Chacko Checklist: Patient Identified, IV Checked, Risks and Benefits Discussed, Surgical Consent, Monitors and Equipment Checked, Pre-op Evaluation and Timeout Performed Fire Risk Assessment Score: 0 Epidural: Patient Position: Sitting Prep: Chlorhexidine, Patient Draped and Maximum Sterile Barriers Used Monitoring: Monitor, Continuous Pulse Ox, Heart Rate, Blood Pressure and Facilities Maintenance Technician Oxygen Source: Room Air Approach: Midline Location: [...] ANESTHESIA ORD ERABLES Edited Result - Final * Syphilis AB, TP-PA Syphilis Confirmation, Reflex Only (03/08/2025 11:22 PM EDT) SYPHILIS AB, TP-PA SYPHILIS CONFIRMATION, REFLEX ONLY Negative Negative 03/10/2025 3:05 PM EDT [facility] [employer] Comment: Results are inconclusive for syphilis infection. Results may indicate early infection or a false-positive screen. Clinical correlation is required to distinguish between these scenarios. Repeat testing in 2-4 weeks may be helpful. For additional information on interpretation of the syphilis reverse algorithm and results, see: [email or web address] Test Performed by: [facility] [address] [place] [address] [employer] Kiss Maker: Erik Sorto Ph.D.; CLIA# [id number] Blood Venous blood / Unknown Venipuncture / Unknown 03/08/2025 11:22 PM EDT 03/08/2025 11:37 PM EDT us Rosio Henderson DO LAB ORDERABLES Final Resul t [facility] [address] [place] [address], [place] * RPR with Reflex to TP-PA, serum (03/08/2025 11:22 PM EDT) RPR WITH REFLEX TO RTPPA Negative Negative 03/10/2025 10:02 AM EDT [facility] [employer] [place] Comment: Non-treponemal antibodies not detected. Testing on a new specimen collected in 2-3 weeks is recommended if acute infection is suspected. Sample reflexed for detection of Treponema pallidum specific antibodies by the Treponema pallidum particle agglutination (TP-PA) assay. For additional information on interpretation of the syphilis reverse algorithm and results, see: [email or web address]_[email or web address] Test Performed by: [facility] [address] [id number] [employer] Kiss Maker: Erik Sorto Ph.D.; CLIA# [id number] Blood Venous blood / Unknown Venipuncture / Unknown 03/08/2025 11:22 PM EDT 03/08/2025 11:37 PM EDT Rosio Henderson DO LAB BLOOD ORDERABLES Final Result [facility] [address] [place] [address], * (ABNORMAL) Syphilis Total (Unknown Syphilis Status) (03/08/2025 11:22 PM EDT) [facility] Signature SYPHILIS TOTAL 1.2(H) <=0.8 AI 03/09/2025 6:42 AM EDT [facility] Blood Venous blood / Unknown Venipuncture / Unknown 03/08/2025 11:22 PM EDT 03/08/2025 11:37 PM EDT Narrative [facility] - 03/09/2025 6:42 AM EDT REACTIVE This specimen will be sent to a reference lab for additional testing which includes RPR with reflex to TP-PA if RPR is negative. The RPR will help distinguish between infections with T. pallidum (syphilis) versus a falsely reactive treponemal antibody result. Please see the syphilis testing algorithm link below for more information. [email or web address] Rosio Henderson DO LAB BLOOD ORDERABLES Final Result [facility] [address] [place] [address], * LDH (03/08/2025 11:22 PM EDT) [facility] LDH 121 100 - 235 U/L 03/09/2025 12:04 AM EDT [facility] Blood Venous blood / Unknown Venipuncture / Unknown 03/08/2025 11:22 PM EDT 03/08/2025 11:37 PM EDT Rosio Henderson LAB BLOOD ORDERABLES Final Result [facility] [address] [place] [address], * ABO Rh Repeat (03/08/2025 11:22 PM EDT) Pathologist [facility] ABO A 03/09/2025 5:35 AM EDT [facility] RH Positive 03/09/2025 5:35 AM EDT [facility] Blood Venous blood / Unknown Venipuncture / Unknown 03/08/2025 11:22 PM EDT 03/08/2025 11:57 PM EDT Rosio Henderson DO BLOOD BANK TEST ORDERABLES Final Result [facility] [address] [place] [address], [facility] [address] [place] [address], [place] * (ABNORMAL) CBC without diff (03/08/2025 11:22 PM EDT) [facility] WBC 11.3(H) 4 - 11 x10E9/L 03/08/2025 11:42 PM EDT [facility] RBC Count 3.61(L) 3.8 - 5.2 X10E12/L 03/08/2025 11:42 PM EDT [facility] Hemoglobin 10.9(L) 11.7 - 15.5 g/dL 03/08/2025 11:42 PM EDT [facility] Hematocrit 32.3(L) 35 - 47 % 03/08/2025 11:42 PM EDT [facility] MCV 89 80 - 100 fL 03/08/2025 11:42 PM EDT [facility] MCH 30.2 27 - 34 pg 03/08/2025 11:42 PM EDT [facility] MCHC 33.8 32 - 36 g/dL 03/08/2025 11:42 PM EDT [facility] RDW 13.5 11.5 - 15 % 03/08/2025 11:42 PM EDT [facility] Platelet Count 265 150 - 450 X10E9/L 03/08/2025 11:42 PM EDT [facility] MPV 9.6 7 - 12 fL 03/08/2025 11:42 PM EDT [facility] Blood Venous blood / Unknown Venipuncture / Unknown 03/08/2025 11:22 PM EDT 03/08/2025 11:37 PM EDT us Rosio Henderson DO LAB BLOOD ORDERABLES Final Result [facility] [address] [place] [address], * Type and screen(includes indirect gina) (03/08/2025 11:22 PM EDT) ABO A 03/09/2025 2:25 AM EDT [facility] RH Positive 03/09/2025 2:25 AM EDT [facility] Antibody Screen Negative 03/09/2025 2:25 AM EDT [facility] Blood Venous blood / Unknown Venipuncture / Unknown 03/08/2025 11:22 PM EDT 03/08/2025 11:57 PM EDT Rosio Henderson BLOOD BANK TEST ORDERABLES Edited Result - Final [facility] JOSE ALVARADO [address] [place] [address], [facility] [address] [place] [address], [place] * Uric acid (03/08/2025 11:22 PM EDT) Pathologist [facility] URIC ACID 4.1 2.6 - 7.2 mg/dL 03/09/2025 12:04 AM EDT [facility] Blood Venous blood / Unknown Venipuncture / Unknown 03/08/2025 11:22 PM EDT 03/08/2025 11:37 PM EDT Rosio Pintotrick LAB BLOOD ORDERABLES Final Result [facility] [address] [place] [address], [place] [phone] * (ABNORMAL) Comprehensive metabolic panel (03/08/2025 11:22 PM EDT) [facility] SODIUM 137 134 - 146 mmol/L 03/09/2025 12:04 AM EDT [facility] POTASSIUM 3.7 3.5 - 5.0 mmol/L 03/09/2025 12:04 AM EDT [facility] CHLORIDE 106 98 - 109 mmol/L 03/09/2025 12:04 AM EDT [facility] CARBON DIOXIDE 23 22 - 32 mmol/L 03/09/2025 12:04 AM EDT [facility] ANION GAP 8 5 - 15 mmol/L 03/09/2025 12:04 AM EDT [facility] BLOOD UREA NITROGEN 6 5 - 23 mg/dL 03/09/2025 12:04 AM EDT [facility] CREATININE 0.67 0.40 - 1.00 mg/dL 03/09/2025 12:04 AM EDT [facility] Comment:METHOD TRACEABLE TO IDMS STANDARD GLUCOSE 99 65 - 99 mg/dL 03/09/2025 12:04 AM EDT [facility] CALCIUM 9.1 8.5 - 10.5 mg/dL 03/09/2025 12:04 AM EDT [facility] TOTAL PROTEIN 6.2 6.0 - 8.0 g/dL 03/09/2025 12:04 AM EDT [facility] ALBUMIN 3.5 3.2 - 5.3 g/dL 03/09/2025 12:04 AM EDT [facility] ALKALINE PHOSPHATASE 140(H) 39 - 130 U/L 03/09/2025 12:04 AM EDT [facility] AST 9 <=41 U/L 03/09/2025 12:04 AM EDT [facility] ALT 9 <=31 U/L 03/09/2025 12:04 AM EDT [facility] BILIRUBIN,TOTAL 0.3 0.3 - 1.2 mg/dL 03/09/2025 12:04 AM EDT [facility] EGFR Non-Race Dependent >90 >=60 ml/min/1.7 3sq.m 03/09/2025 12:04 AM EDT [facility] Comment: Reported eGFR is based on the CKD-EPI 2020 equation that does not use a race coefficient. Blood Venous blood / Unknown Venipuncture / Unknown 03/08/2025 11:22 PM EDT 03/08/2025 11:37 PM EDT us Rosio Henderson DO LAB BLOOD ORDERABLES Final Result [facility] [address] [place] [address], * Fentanyl, Urine Qualitative (03/08/2025 11:05 PM EDT) FENTANYL, URINE QUAL. Negative Negative 03/09/2025 12:33 AM EDT [facility] Urine Urine / Unknown 03/08/2025 1 1:05 PM EDT 03/08/2025 11:38 PM EDT Narrative [facility] - 03/09/2025 12:33 AM EDT Fentanyl screening cutoff = 5ng/ml This report is intended for use in clinical monitoring or management of patients. us Rosio Henderson DO URINE ORDERABLES Final Resu lt [facility] [address] [place] [address], [place] [phone] * Drug Screen, Urine (03/08/2025 11:05 PM EDT) AMPHETAMINE/METHAMP Negative Negative 03/09 12:33 AM EDT [facility] Comment:AMPH/METH screening cut off = 1000 ng/mL COCAINE METABOLITE Negative Negative 2024 12:33 AM EDT [facility] Comment:Cocaine screening cu t off value = 300 ng/mL ECSTASY Negative Negative 03/09/2025 12:33 AM EDT [facility] Comment:Ecstasy screening cu t off value = 500 ng/mL METHADONE Negative Negative 03/09/2025 12:33 AM EDT [facility] Comment:Methadone screening cut off value = 300 ng/mL. OPIATES Negative Negative 03/09/2025 12:33 AM EDT [facility] Comment: Opiates screening cut off value = 300 ng/mL This test is used for the detection of codeine, hydrocodone (>1000 ng/mL), morphine and hydromorphone (>900 ng/mL) in urine. OXYCODONE Negative Negative 03/09/2025 12:33 AM EDT [facility] Comment: Oxycodone screening cut off value = 300 ng/mL This test is used for the detection of oxycodone and oxymorphone in urine. PHENCYCLIDINE Negative Negative 03/09/2025 12:33 AM EDT [facility] Comment:Phencyclidine screen ing cut off value = 25 ng/mL CANNABINOIDS Negative Negative 03/09/2025 12:33 AM EDT [facility] Comment:Cannabinoids/THC scr eening cut off value = 50 ng/mL Urine Barbiturates Negative Negative 2024 12:33 AM EDT [facility] Comment:Barbiturates screeni ng cut off value = 200 ng/mL BENZODIAZEPINES Negative Negative 12:33 AM EDT [facility] Comment:Benzodiazepines scre ening cut off value = 200 ng/mL Urine 03/08/2025 11:0 5 PM EDT 03/08/2025 11:38 PM EDT us Rosio Henderson DO URINE ORDERABLES Final Resu lt [facility] [address] [place] [address], [place] [phone] * Strep B screen (02/21/2025 4:30 PM EDT) CULTURE RESULTS NEGATIVE FOR GROUP B STREPTOCOCCUS BY NUCLEIC ACID AMPLIFICATION 02/22/2025 11:03 PM EDT [facility] Swab (Vagina/Rectum) 02/21/2025 4:30 PM EDT 02/21/2025 4:30 PM EDT us Shyann Lopez MD MICROBIOLOGY - GENERAL O RDERABLES Final Result [facility] [address] [place] [address], [place] [phone] * US MFM OB FOLLOW-UP, 1 FETUS (02/21/2025 4:12 PM EDT) Only the most recent of2 resultswithin the time period is included. Anatomical Region Laterality Modality OB-CATALOG SPECIALIST Ultrasound 02/21/2025 3:51 PM EDT Narrative 02/21/2025 4:26 PM EDT NAME: GINGER GABRIEL : 2005 SEX: F Accession Number: [id number] ORDERING PHYSICIAN: SAIRA WIGGINS REFERRING PHYSICIAN: EDUARDO RAMOS Coding ----- --------- Procedures 55163: Follow-up Ultrasound, per fetus Indication ----- --------- Supervision of high risk - cleft lip and palate, Known or suspected damage to fetus by drugs +THC, Obesity in , History ----- --------- OB History 2. Para 0 [id number] Maternal Assessment ----- --------- Physical Exam Height 163 cm, 5 ft 4 in. Weight 87 kg, 192 lb. Initial weight 80 kg, 177 lb. BMI 32.96 kg/m . Initial BMI 30.38 kg/m . Weight gain 7 kg, 15 lb Method ----- --------- Transabdominal ultrasound examination ----- --------- [place] . Number of fetuses: 1 Dating ----- --------- LMP on: 05/27/2024 GA by LMP 38 w + 4 d WALTER by LMP: 03/03/2025 Previous Ultrasound on: 07/24/2024 Type of prior assessment: CRL U/S measurement at prior assessment date 6.5 mm GA by previous U/S 36 w + 6 d WALTER by previous Ultrasound: 03/15/2025 Ultrasound examination on: 02/21/2025 GA by U/S based upon: AC, BPD, Femur, HC GA by U/S 35 w + 6 d WALTER by U/S: 03/22/2025 Assigned: based on ultrasound (CRL), selected on 12/11/2024 Assigned GA 36 w + 6 d Assigned WALTER: 03/15/2025 General Evaluation ----- --------- Cardiac activity Present. FHR 133 bpm. Presentation: cephalic Placenta: Placental site: posterior, away from cervical os Umbilical cord: Cord vessels: 3 vessel cord. Insertion site: documented previously Amniotic fluid: Amount of AF: normal amount. MVP 4.6 cm Biometry ----- --------- Standard BPD 90.5 mm 36w 5d 60% Hadlock OFD 108.3 mm 35w 5d 29% Gato HC 320.1 mm 36w 1d 11% Hadlock AC 318.1 mm 35w 5d 31% Hadlock Femur 67.3 mm 34w 4d 6% Hadlock Humerus 60.3 mm 35w 0d 27% Gato HC / AC 1.01 EFW 2,713 g 24% Hadlock EFW (lb) 6 lb EFW (oz) 0 oz EFW by: Hadlock ([id number]) Extended Tibia 57.8 mm 33w 5d 10% Gato Script Developer 1.6 mm Head / Face / Neck Cephalic index 0.84 69% Nicolaides Extremities / Bony Struc FL / BPD 0.74 FL / HC 0.21 FL / AC 0.21 Other Structures FHR 133 bpm Anatomy ----- --------- The following structures appear abnormal: Face: Lips: cleft upper lip: right unilateral. The following structures appear normal: Head/Neck: Cranium. Lateral ventricles. Heart/Thorax: Cardiac position. Cardiac axis. Cardiac size. Cardiac rhythm. Diaphragm. Abdomen: Stomach. Kidneys. Bladder. The following structures could not be adequately visualized: Head / Neck Cavum septi pellucidi. Heart / Thorax 4-chamber view. Maternal Structures ----- --------- Uterus Visualized Cervix Suboptimal Right Ovary Not visualized Left Ovary Not visualized Cul de Sac Visualized Impression ----- --------- Single viable intrauterine with appropriate interval growth. EFW measures at the 24%, AC measures at the 31%. Amniotic fluid MVP measures 4.6 cm. Known right sided unilateral cleft lip and palate. Recommendations ----- --------- Subsequent follow up or other follow up as clinically determined by primary OB provider unless otherwise specified by M. Results forwarded to ordering provider so they can follow up with the patient as necessary. Procedure Note Ike Flores MD - 02/21/2025 NAME: GINGER GABRIEL : 2005 SEX: F Accession Number: [id number] ORDERING PHYSICIAN: SAIRA WIGGINS REFERRING PHYSICIAN: EDUARDO RAMOS Coding ----- --------- Procedures [id number]: Follow-up Ultrasound, per fetus Indication ----- --------- Supervision of high risk - cleft lip and palate, Known orsuspected damage to fetus by drugs +THC, Obesity in , History ----- --------- OB History 2. Para 0 [id number] Maternal Assessment ----- --------- Physical Exam Height 163 cm, 5 ft 4 in. Weight 87 kg, 192 lb. Initialweight 80 kg, 177 lb. BMI 32.96 kg/m . Initial BMI 30.38 kg/m . Weight gain 7 kg, 15 lb Method ----- --------- Transabdominal ultrasound examination ----- --------- [place] . Number of fetuses: 1 Dating ----- --------- LMP on: 05/27/2024 GA by LMP 38 w + 4 d WALTER by LMP: 03/03/2025 Previous Ultrasound on: 07/24/2024 Type of prior assessment: CRL U/S measurement at prior assessment date 6.5 mm GA by previous U/S 36 w + 6 d WALTER by previous Ultrasound: 03/15/2025 Ultrasound examination on: 02/21/2025 GA by U/S based upon: AC, BPD, Femur, HC GA by U/S 35 w + 6 d WALTER by U/S: 03/22/2025 Assigned: based on ultrasound (CRL), selected on 12/11/2024 Assigned GA 36 w + 6 d Assigned WALTER: 03/15/2025 General Evaluation ----- --------- Cardiac activity Present. FHR 133 bpm. Presentation: cephalic Placenta: Placental site: posterior, away from cervical os Umbilical cord: Cord vessels: 3 vessel cord. Insertion site: documentedpreviously Amniotic fluid: Amount of AF: normal amount. MVP 4.6 cm Biometry ----- --------- Standard BPD 90.5 mm 36w 5d 60% Hadlock OFD 108.3 mm 35w 5d 29% Gato HC 320.1 mm 36w 1d 11% Hadlock AC 318.1 mm 35w 5d 31% Hadlock Femur 67.3 mm 34w 4d 6% Hadlock Humerus 60.3 mm 35w 0d 27% Gato HC / AC 1.01 EFW 2,713 g 24% Hadlock EFW (lb) 6 lb EFW (oz) 0 oz EFW by: Hadlock ([id number]) Extended Tibia 57.8 mm 33w 5d 10% Gato Script Developer 1.6 mm Head / Face / Neck Cephalic index 0.84 69% Nicolaides Extremities / Bony Struc FL / BPD 0.74 FL / HC 0.21 FL / AC 0.21 Other Structures FHR 133 bpm Anatomy ----- --------- The following structures appear abnormal: Face: Lips: cleft upper lip: right unilateral. The following structures appear normal: Head/Neck: Cranium. Lateral ventricles. Heart/Thorax: Cardiac position. Cardiac axis. Cardiac size. Cardiacrhythm. Diaphragm. Abdomen: Stomach. Kidneys. Bladder. The following structures could not be adequately visualized: Head / Neck Cavum septi pellucidi. Heart / Thorax 4-chamber view. Maternal Structures ----- --------- Uterus Visualized Cervix Suboptimal Right Ovary Not visualized Left Ovary Not visualized Cul de Sac Visualized Impression ----- --------- Single viable intrauterine with appropriate interval growth. EFWmeasures at the 24%, AC measures at the 31%. Amniotic fluid MVP measures 4.6 cm. Known right sided unilateral cleft lip and palate. Recommendations ----- --------- Subsequent follow up or other follow up as clinically determined byprimary OB provider unless otherwise specified by M. Results forwarded to ordering provider so they can follow up with thepatient as necessary. Saira Wiggins DO IMG US ORDERABLES Fin al Result * Glucose 1h post 50g load (12/27/2024) Glucose, 1 hr PP 50GM dose 118 MANUALLY TRANSCRIBED RESULTS Blood Venous blood / Unknown Saira Wiggins DO LAB BLOOD ORDERABLES Final Result Performing Organization Address [facility] de Phone Number MANUALLY TRANSCRIBED RESULTS * Hemoglobin and hematocrit, blood (12/27/2024) Pathologist [facility] Hemoglobin 10.7 MANUALLY TRANSCRIBED RESULTS Hematocrit 32.7 MANUALLY TRANSCRIBED RESULTS Blood Venous blood / Unknown Saira Wiggins DO LAB BLOOD ORDERABLES Final Result Performing Organization Address [facility] de Phone Number MANUALLY TRANSCRIBED RESULTS * Platelet count (12/27/2024) Pathologist [facility] Platelets 267 MANUALLY TRANSCRIBED RESULTS Blood Venous blood / Unknown Saira Wiggins DO LAB BLOOD ORDERABLES Final Result Performing Organization Address [facility] de Phone Number MANUALLY TRANSCRIBED RESULTS from Last 3 Months Insurance [employer] Advance Directives * Full Code (Latest Code Status on File) Date Activated Date Inactivated Comments 03/08/2025 10:39 PM 03/12/2025 7:56 PM Care Teams Certified Medical Technician Assistant Relationship Specialty Start Date End Date Maggie Marlow MD [address] [place] [address] PCP - General Pediatrics 12/09/23
--- OUTSIDE RECORDS SUMMARY | 2025-03-15 08:26 | XMS_ITS | CCD ---
Author Organization [facility] Care Team Providers Care Canceling Machine Operator Name Role Phone CHELLIAH, MAGGIE A Primary Care Unavailable NANCY SIMPSON Attending Unavailable CHELLIAH, MAGGIE A Primary Care Unavailable BO SOTOMAYOR Attending Unavailable SOTOMAYORBO SHORT Attending Unavailable SOTOMAYORBO SHORT Referring Unavailable CHELLIAH, MAGGIE A Primary Care Unavailable Unavailable Primary Care Provider UnavailMaggie Willis MD Primary Care Provider YAMILE GUIDRY Attending Unavailable FLOROCHITRAYAMILE L Referring Unavailable FLORO YAMILE L Attending Unavailable FLOROEDE L Attending Unavailable FLORO, YAMILE L Referring Unavailable FLORO, YAMILE Holman Attending Unavailable FLOROEDE River Attending Unavailable FLORO, YAMILE L Attending Unavailable FLORO, YAMILE L Attending Unavailable FLORO, YAMILE L Primary Care Unavailable WALESKA BERNAL Attending Unavailable Floro, Yamile L Primary Care Provider Unavailab le FLOROCHITRAYAMILE Referring Unavailable CHELLIAH, MAGGIE A Primary Care Unavailable KEN DE LA VEGA Attending Unavailable FLOROCHITRAYAMILE Referring Unavailable CHELLIAH, MAGGIE A Primary Care Unavailable SHYANN LOPEZ Referring Unavailabl e CHELLIAH, MAGGIE A Primary Care Unavailable CEFERINOKEN Attending Unavailable CHELLIAH, MAGGIE A Primary Care Unavailable SHYANN LOPEZ Referring Unavailabl e ESTEFANI WIGGINS Attending Unavail able KEN DE LA VEGA Referring Unavailable CHELLIAH, MAGGIE A Primary Care Unavailable ESTEFANI WIGGINS Attending Unavail able EDUARDO RAMOS Referring Unavailable CHELLIAH, MAGGIE A Primary Care Unavailable SHYANN LOPEZ Attending Unavailabl e CHELLIAH, MAGGIE A Referring Unavailable CHELLIAH, MAGGIE A Primary Care Unavailable EDUARDO RAMOS Referring Unavailable CHELLIAH, MAGGIE A Primary Care Unavailable RODRIGO LISA Attending Unavailable EUDARDO RAMOS Referring Unavailable CHELLIAH, MAGGIE A Primary Care Unavailable SHYANN LOPEZ Attending Unavailneli e EDUARDO RAMOS Referring Unavailable CHELLIAH, MAGGIE A Primary Care Unavailable ANDREW KRAMER Admitting Unavailable ANDREW KRAMER Attending Unavailable DAYANNALIDEISY, MAGGIE A Primary Care Unavailable Allergies Allergy Classification Reported Allergen(s) Allergy Type Date of Onset Reaction(s) Facility (12 sources) Grass pollen; Translations: [GRASS POLLEN] Propensity to adverse reactions to drug (disorder) 2 [facility] (15 sources) Shrimp product; Translations: [SHRIMP] Propensity to adverse reactions to food (disorder) 2 Anaphylaxis [facility] (20 sources) Grass pollen Drug Intolerance 2 [facility] (20 sources) Shrimp product Propensity to adverse reactions 2 [facility] Medications Current Medications Medication Drug Class(es) Dates Sig (Normalized) Sig (Original) cyclobenzaprine hydrochloride 10 mg oral tablet (10 sources) Muscle Relaxant Start: 12-09-2023 take 1 tablet by mouth three times daily as needed for muscle spasms cyclobenzaprine (FLEXERIL) 10 mg tablet Take 1 tablet (10 mg total) by mouth 3 (three) times a day as needed for muscle spasms. 30 tablet 12/09/2023 Active docusate sodium 100 mg oral capsule (10 sources) Start: 12-29-2024 End: 04-28-2025 take 1 capsule by mouth in the morning docusate sodium (Colace) 100 MG capsule Indications: Anemia during in third trimester ([facility]) Take 1 capsule (100 mg) by mouth in the morning and 1 capsule (100 mg) before bedtime. 60 capsule 3 12/29/2024 04/28/2025 Active famotidine 20 mg oral tablet (3 sources) Histamine-2 Receptor Antagonist Start: 02-21-2025 take 1 tablet by mouth in the morning, then take 1 tablet by mouth at bedtime famotidine (PEPCID) 20 mg tablet Take 1 tablet (20 mg total) by mouth in the morning and 1 tablet (20 mg total) before bedtime. 60 tablet 1 02/21/2025 Active ferrous sulfate 325 mg delayed release oral tablet (12 sources) Start: 12-29-2024 End: 12-29-2025 take 1 tablet by mouth in the morning ferrous sulfate (Fe Tabs) 325 (65 Fe) MG EC tablet Indications: Anemia during in third trimester ([facility]) Take 1 tablet (325 mg) by mouth in the morning and 1 tablet (325 mg) in the evening. Take before meals. Do not crush, chew, or split. 60 tablet 11 12/29/2024 12/29/2025 Active ferrous sulfate 325 mg (65 mg iron) tablet Take by mouth. Active multivitamin () 27-0.8 MG tablet (20 sources) Start: 07-21-2024 take 1 tablet by mouth once daily multivitamin () 27-0.8 MG tablet Indications: examination or test, positive result ([facility]) Take 1 tablet by mouth Daily 30 tablet 11 07/21/2024 Active Start: 07-21-2024 take 1 tablet by jennifer th once daily multivitamin () 27-0.8 MG tablet Indications: examination or test, positive result Take 1 tablet by mouth Daily 30 tablet 11 07/21/2024 Active PNV no.95/ferrous fum/folic ac ( ORAL) (2 sources) PNV no.95/ferrou s fum/folic ac ( ORAL) Take by mouth. Active no115/iron/folic ac id ( 19 ORAL) (9 sources) no115/i frederick/folic acid ( 19 ORAL) Take by mouth. Active Completed/Discontinued Medications Medication Drug Class(es) Dates Sig (Normalized) Sig (Original) ibuprofen 600 mg oral tablet (16 sources) Nonsteroidal Anti-inflammatory Drug Start: 03-29-2021 End: 02-21-2025 take 1 tablet by mouth every six hours as needed for pain ibuprofen (MOTRIN) 600 mg tablet Take 1 tablet (600 mg total) by mouth every 6 (six) hours as needed for pain. 30 tablet 12/09/2023 02/21/2025 Discontinued () ondansetron 8 mg oral tablet (2 sources) Serotonin-3 Receptor Antagonist Start: 07-21-2024 End: 08-20-2024 take 1 tablet by mouth every eight hours for nausea ondansetron (Zofran) 8 MG tablet Indications: examination or test, positive result Take 1 tablet (8 mg) by mouth every 8 (eight) hours if needed for nausea 20 tablet 07/21/2024 08/20/2024 Problems Active Problems Problem Classification Problem Date Documented Da te Episodic/Chronic Administrative/social admission (1 source) Other specified counseling; Translations: [Other specified counseling] Onset: 01-16-2025 Episodic Conditions associated with dizziness or vertigo (2 sources) Dizziness; Translations: [Dizziness and giddiness] 10-04-2024 Episodic Hypertension complicating ; childbirth and the puerperium (1 source) Gestational [-induced] hypertension without significant proteinuria, third trimester; Translations: [Gestational (-induced) hypertension without significant proteinuria, third trimester] Onset: 03-08-2025 Episodic Other circulatory disease (3 sources) Elevated blood-pressure reading without diagnosis of hypertension; Translations: [Elevated blood-pressure reading, without diagnosis of hypertension] Onset: 02-28-2025 02-28-2025 Episodic Other circulatory disease (1 source) Elevated blood-pressure reading, without diagnosis of hypertension; Translations: [Elevated blood-pressure reading, without diagnosis of hypertension] Onset: 02-28-2025 Episodic Other complications of ; puerperium affecting management of mother (6 sources) condition affecting obstetrical care of mother; Translations: [ cleft lip and palate affecting antepartum care of mother, single or unspecified fetus] Onset: 12-11-2024 02-21-2025 Episodic Other complications of ; puerperium affecting management of mother (2 sources) Sore nipple; Translations: [Other disorders of breast associated with and the puerperium] 03-14-2025 Episodic Other complications of (4 sources) Finding related to ; Translations: [ related conditions, unspecified, second trimester] 10-04-2024 Episodic Other complications of (1 source) ultrasound scan abnormal; Translations: [Abnormal ultrasonic finding on screening of mother] 01-24-2025 Episodic Other complications of (1 source) High risk ; Translations: [Supervision of high risk , unspecified, third trimester] 02-28-2025 Episodic Other complications of (1 source) Supervision of high risk , unspecified, third trimester; Translations: [Supervision of high risk , unspecified, third trimester] Onset: 02-28-2025 Episodic Other complications of (1 source) Abnormal ultrasonic finding on screening of mother; Translations: [Abnormal ultrasonic finding on screening of mother] Onset: 01-24-2025 Episodic Other congenital anomalies (4 sources) Congenital malformation; Translations: [Congenital malformation, unspecified] 11-29-2024 Chronic Other congenital anomalies (13 sources) Cleft palate with left cleft lip; Translations: [Unspecified cleft palate with unilateral cleft lip] Onset: 12-11-2024 12-11-2024 Chronic Other congenital anomalies (1 source) Unspecified cleft palate with unilateral cleft lip; Translations: [Unspecified cleft palate with unilateral cleft lip] Onset: 02-21-2025 Chronic Other female genital disorders (1 source) Abnormal uterine and vaginal bleeding, unspecified; Translations: [Abnormal uterine and vaginal bleeding, unspecified] Onset: 03-09-2024 Chronic Other female genital disorders (1 source) Vaginal bleeding Onset: 03-09-2024 Chronic Other and delivery including normal (20 sources) First trimester ; Translations: [Encounter for supervision of normal first , first trimester] Onset: 02-20-2025 09-06-2024 Episodic Residual codes; unclassified (2 sources) Difficulty in feeding at breast; Translations: [Other specified personal risk factors, not elsewhere classified] 03-14-2025 Episodic Unclassified (1 source) Consult Onset: 01-16-2025 Unclassified (1 source) Scheduled Induction Onset: 03-08-2025 Unclassified (1 source) Maternal care for other (suspected) abnormality and damage, facial anomalies, not applicable or unspecified; Translations: [Maternal care for other (suspected) abnormality and damage, facial anomalies, not applicable or unspecified] Onset: 02-28-2025 Unclassified (1 source) Routine Visit Onset: 03-07-2025 Unclassified (1 source) High Risk Gestation Onset: 02-07-2025 Unclassified (1 source) Initial Visit Onset: 01-24-2025 Unclassified (1 source) Suspected Cleft Lip Onset: 12-11-2024 Past or Other Problems Problem Classification Problem Date Documented Da te Episodic/Chronic Other connective tissue disease (1 source) Other muscle spasm; Translations: [Other muscle spasm] Onset: 12-09-2023 Episodic Other screening for suspected conditions (not mental disorders or infectious disease) (5 sources) Patient encounter status; Translations: [Encounter for screening for diabetes mellitus] Onset: 12-11-2024 12-27-2024 Episodic Spondylosis; intervertebral disc disorders; other back problems (2 sources) Neck pain Onset: 12-09-2023 Episodic NEGATED: Highlighted row has been ruled out!Unclassified (1 source) No known active problems 07-25-2019 Results Test Name Value Interpretation Reference Range Facility CBC WITH AUTO DIFFERENTIALon 03-11-2025 BASOPHILS ABSOLUTE COUNT (10*3/UL) BY AUTOMATED COUNT 0.1 10*3/uL Normal 0.0-0.2 [facility] Comment on above: Performed By: #### C BC #### [facility] ([facility]) [address] [place] [address] VIR BASOPHILS RELATIVE PERCENT BY AUTOMATED COUNT 0.4 % Normal [facility] Comment on above: Performed By: #### C BC #### [facility] ([facility]) [address] [place] [address] VIR CELLAVISION DIFFERENTIAL TYPE AUTOMATED DIFFERENTIAL Normal [facility] Comment on above: Performed By: #### C BC #### [facility] ([facility]) [address] [place] [address] VIR Eosinophils (Bld) [#/Vol] 0.3 10*3/uL Normal 0.0-0.4 [facility] Comment on above: Performed By: #### C BC #### [facility] ([facility]) [address] [place] [address] VIR EOSINOPHILS RELATIVE PERCENT BY AUTOMATED COUNT 1.6 % Normal [facility] Comment on above: Performed By: #### C BC #### [facility] ([facility]) [address] [place] [address] VIR Erythrocyte distribution width (RBC) [Ratio] 13.7 % Normal 11.5-15 [facility] Comment on above: Performed By: #### C BC #### [facility] ([facility]) [address] [place] [address] VIR Hematocrit (Bld) [Volume fraction] 30.6 % Low 35-47 [facility] Comment on above: Performed By: #### C BC #### [facility] ([facility]) [address] [place] [address] VIR Hemoglobin (Bld) [Mass/Vol] 10.3 g/dL Low 11.7-15.5 [facility] Comment on above: Performed By: #### C BC #### [facility] ([facility]) [address] [place] [address] VIR LYMPHOCYTES ABSOLUTE COUNT (10*3/UL) BY AUTOMATED COUNT 2.2 10*3/uL Normal 1.0-3.5 [facility] Comment on above: Performed By: #### C BC #### [facility] ([facility]) [address] [place] [address] VIR LYMPHOCYTES RELATIVE PERCENT BY AUTOMATED COUNT 13.7 % Normal [facility] Comment on above: Performed By: #### C BC #### [facility] ([facility]) [address] [place] [address] VIR MCH (RBC) [Entitic mass] 30.1 pg Normal 27-34 [facility] Comment on above: Performed By: #### C BC #### [facility] ([facility]) [address] [place] [address] VIR MCHC (RBC) [Mass/Vol] 33.6 g/dL Normal 32-36 [facility] Comment on above: Performed By: #### C BC #### [facility] ([facility]) [address] [place] [address] VIR MCV (RBC) [Entitic vol] 90 fL Normal 80-100 [facility] Comment on above: Performed By: #### C BC #### [facility] ([facility]) [address] [place] [address] VIR MONOCYTES ABSOLUTE COUNT (10*3/UL) BY AUTOMATED COUNT 0.9 10*3/uL Normal 0.0-0.9 [facility] Comment on above: Performed By: #### C BC #### [facility] ([facility]) [address] [place] [address] VIR MONOCYTES RELATIVE PERCENT BY AUTOMATED COUNT 5.7 % Normal [facility] Comment on above: Performed By: #### C BC #### [facility] ([facility]) [address] [place] [address] VIR NEUTROPHILS ABSOLUTE COUNT BY AUTOMATED COUNT 12.4 10*3/uL High 1.5-6.6 [facility] Comment on above: Performed By: #### C BC #### [facility] ([facility]) [address] [place] [address] VIR NEUTROPHILS RELATIVE PERCENT BY AUTOMATED COUNT 78.6 % Normal [facility] Comment on above: Performed By: #### C BC #### [facility] ([facility]) [address] [place] [address] VIR Platelet mean volume (Bld) [Entitic vol] 9.5 fL Normal 7-12 [facility] Comment on above: Performed By: #### C BC #### [facility] ([facility]) [address] [place] [address] VIR Platelets (Bld) [#/Vol] 229 10*3/uL Normal 150-450 [facility] Comment on above: Performed By: #### C BC #### [facility] ([facility]) [address] [place] [address] VIR RBC COUNT 3.41 X10E12/L Low 3.8-5.2 [facility] Comment on above: Performed By: #### C BC #### [facility] ([facility]) [address] [place] [address] VIR WBC (Bld) [#/Vol] 15.8 10*3/uL High 4-11 [facility] Comment on above: Performed By: #### C BC #### [facility] ([facility]) [address] [place] [address] VIR CBC (NO DIFF)on 03-08-2025 Erythrocyte distribution width (RBC) [Ratio] 13.5 % Normal 11.5-15 [facility] Comment on above: Performed By: #### C BC #### [facility] ([facility]) [address] [place] [address] VIR Hematocrit (Bld) [Volume fraction] 32.3 % Low 35-47 [facility] Comment on above: Performed By: #### C BC #### [facility] ([facility]) [address] [place] [address] VIR Hemoglobin (Bld) [Mass/Vol] 10.9 g/dL Low 11.7-15.5 [facility] Comment on above: Performed By: #### C BC #### [facility] ([facility]) [address] [place] [address] VIR MCH (RBC) [Entitic mass] 30.2 pg Normal 27-34 [facility] Comment on above: Performed By: #### C BC #### [facility] ([facility]) [address] [place] [address] VIR MCHC (RBC) [Mass/Vol] 33.8 g/dL Normal 32-36 [facility] Comment on above: Performed By: #### C BC #### [facility] ([facility]) [address] [place] [address] VIR MCV (RBC) [Entitic vol] 89 fL Normal 80-100 [facility] Comment on above: Performed By: #### C BC #### [facility] ([facility]) [address] [place] [address] VIR Platelet mean volume (Bld) [Entitic vol] 9.6 fL Normal 7-12 [facility] Comment on above: Performed By: #### C BC #### [facility] ([facility]) [address] [place] [address] VIR Platelets (Bld) [#/Vol] 265 10*3/uL Normal 150-450 [facility] Comment on above: Performed By: #### C BC #### [facility] ([facility]) [address] [place] [address] VIR RBC COUNT 3.61 X10E12/L Low 3.8-5.2 [facility] Comment on above: Performed By: #### C BC #### [facility] ([facility]) [address] [place] [address] VIR WBC (Bld) [#/Vol] 11.3 10*3/uL High 4-11 [facility] Comment on above: Performed By: #### C BC #### [facility] ([facility]) [address] [place] [address] VIR COMPREHENSIVE METABOLIC PANE Julio C 03-08-2025 Albumin [Mass/Vol] 3.5 g/dL Normal 3.2-5.3 [facility] Comment on above: Performed By: #### C MP #### [facility] ([facility]) [address] [place] [address] VIR ALP [Catalytic activity/Vol] 140 U/L High 39-130 [facility] Comment on above: Performed By: #### C MP #### [facility] ([facility]) [address] [place] [address] VIR ALT [Catalytic activity/Vol] 9 U/L Normal <=31 [facility] Comment on above: Performed By: #### C MP #### [facility] ([facility]) [address] [place] [address] VIR Anion gap [Moles/Vol] 8 mmol/L Normal 5-15 [facility] Comment on above: Performed By: #### C MP #### [facility] ([facility]) [address] [place] [address] VIR AST [Catalytic activity/Vol] 9 U/L Normal <=41 [facility] Comment on above: Performed By: #### C MP #### [facility] ([facility]) [address] [place] [address] VIR Bilirubin [Mass/Vol] 0.3 mg/dL Normal 0.3-1.2 [facility] Comment on above: Performed By: #### C MP #### [facility] ([facility]) [address] [place] [address] VIR Calcium [Mass/Vol] 9.1 mg/dL Normal 8.5-10.5 [facility] Comment on above: Performed By: #### C MP #### [facility] ([facility]) [address] [place] [address] VIR Chloride [Moles/Vol] 106 mmol/L Normal 98-109 [facility] Comment on above: Performed By: #### C MP #### [facility] ([facility]) [address] [place] [address] VIR CO2 [Moles/Vol] 23 mmol/L Normal 22-32 [facility] Comment on above: Performed By: #### C MP #### [facility] ([facility]) [address] [place] [address] VIR Creatinine [Mass/Vol] 0.67 mg/dL Normal 0.40-1.00 [facility] Comment on above: Result Comment: METH OD TRACEABLE TO IDMS STANDARD Performed By: #### C MP #### [facility] ([facility]) [address] [place] [address] VIR EGFR (CKD-EPI) NON-RACE DEPENDENT >^90 Normal >=60 [facility] Comment on above: Result Comment: Repo rted eGFR is based on the CKD-EPI 2020 equation that does not use a race coefficient. Performed By: #### C MP #### [facility] ([facility]) [address] [place] [address] VIR Glucose [Mass/Vol] 99 mg/dL Normal 65-99 [facility] Comment on above: Performed By: #### C MP #### [facility] ([facility]) [address] [place] [address] VIR Potassium [Moles/Vol] 3.7 mmol/L Normal 3.5-5.0 [facility] Comment on above: Performed By: #### C MP #### [facility] ([facility]) [address] [place] [address] VIR Protein [Mass/Vol] 6.2 g/dL Normal 6.0-8.0 [facility] Comment on above: Performed By: #### C MP #### [facility] ([facility]) [address] [place] [address] VIR Sodium [Moles/Vol] 137 mmol/L Normal 134-146 [facility] Comment on above: Performed By: #### C MP #### [facility] ([facility]) [address] [place] [address] VIR Urea nitrogen [Mass/Vol] 6 mg/dL Normal 5-23 [facility] Comment on above: Performed By: #### C MP #### [facility] ([facility]) [address] [place] [address] VIR DRUG SCREEN, URINEon 025 AMPHETAMINE/METHAMP Negative Normal Negative [facility] Comment on above: Result Comment: AMPH /METH screening cut off = 1000 ng/mL Performed By: #### D HUSTON #### [facility] ([facility]) [address] [place] [address] VIR BARBITURATES Negative Normal Negative [facility] Comment on above: Result Comment: Lashell iturates screening cut off value = 200 ng/mL Performed By: #### D HUSTON #### [facility] ([facility]) [address] [place] [address] VIR BENZODIAZEPINES Negative Normal Negative [facility] Comment on above: Result Comment: Johnny odiazepines screening cut off value = 200 ng/mL Performed By: #### D HUSTON #### [facility] ([facility]) [address] [place] [address] VIR CANNABINOIDS Negative Normal Negative [facility] Comment on above: Result Comment: Ted abinoids/THC screening cut off value = 50 ng/mL Performed By: #### D HUSTON #### [facility] ([facility]) [address] [place] [address] VIR COCAINE METABOLITE Negative Normal Negative [facility] Comment on above: Result Comment: Coca ine screening cut off value = 300 ng/mL Performed By: #### D HUSTON #### [facility] ([facility]) [address] [place] [address] VIR ECSTASY Negative Normal Negative [facility] Comment on above: Result Comment: Ecst asy screening cut off value = 500 ng/mL Performed By: #### D HUSTON #### [facility] ([facility]) [address] [place] [address] VIR METHADONE Negative Normal Negative [facility] Comment on above: Result Comment: Meth adone screening cut off value = 300 ng/mL. Performed By: #### D HUSTON #### [facility] ([facility]) [address] [place] [address] VIR OPIATES Negative Normal Negative [facility] Comment on above: Result Comment: Opia kristina screening cut off value = 300 ng/mL This test is used for the detection of codeine, hydrocodone (>1000 ng/mL), morphine and hydromorphone (>900 ng/mL) in urine. Performed By: #### D HUSTON #### [facility] ([facility]) [address] [place] [address] VIR OXYCODONE Negative Normal Negative [facility] Comment on above: Result Comment: Oxyc odone screening cut off value = 300 ng/mL This test is used for the detection of oxycodone and oxymorphone in urine. Performed By: #### D HUSTON #### [facility] ([facility]) [address] [place] [address] VIR PHENCYCLIDINE Negative Normal Negative [facility] Comment on above: Result Comment: Phen cyclidine screening cut off value = 25 ng/mL Performed By: #### D HUSTON #### [facility] ([facility]) [address] [place] [address] VIR FENTANYL, URINE QUALITATIVEo n 03-08-2025 FENTANYL, URINE QUAL. Negative Normal Negative [facility] Comment on above: Order Comment: Fenta nyl screening cutoff = 5ng/ml This report is intended for use in clinical monitoring or management of patients. Performed By: #### U FEN #### [facility] ([facility]) [address] [place] [address] VIR LDHon 03-08-2025 LDH 121 U/L Normal 100-235 [facility] Comment on above: Performed By: #### L DH #### [facility] ([facility]) [address] [place] [address] VIR RPR WITH REFLEX TO TP-PA, SE RUMon 03-08-2025 RPR WITH REFLEX TO RTPPA Negative Normal Negative [facility] Comment on above: Result Comment: Non- treponemal antibodies not detected. Testing on a new specimen collected in 2-3 weeks is recommended if acute infection is suspected. Sample reflexed for detection of Treponema pallidum specific antibodies by the Treponema pallidum particle agglutination (TP-PA) assay. For additional information on interpretation of the syphilis reverse algorithm and results, see: [email or web address] Test Performed by: [place] [address] Instrument Repairer Helper: Erik Sorto Ph.D.; CLIA# [id number] Performed By: #### C BC #### [facility] ([facility]) [address] [place] [address] VIR SYPHILIS AB, TP-PA SYPHILIS CONFIRMATION, REFLEX ONLYon 03-08-2025 SYPHILIS AB, TP-PA SYPHILIS CONFIRMATION, REFLEX ONLY Negative Normal Negative [facility] Comment on above: Result Comment: Resu lts are inconclusive for syphilis infection. Results may indicate early infection or a false-positive screen. Clinical correlation is required to distinguish between these scenarios. Repeat testing in 2-4 weeks may be helpful. For additional information on interpretation of the syphilis reverse algorithm and results, see: [email or web address] Test Performed by: [place] [address] Instrument Repairer Helper: rEik Sorto Ph.D.; CLIA# [id number] Performed By: #### C BC #### [facility] ([facility]) [address] [place] [address] VIR SYPHILIS TOTAL(UNKNOWN SYPHI LIS STATUS)on 03-08-2025 SYPHILIS TOTAL 1.2 AI High <=0.8 [facility] Comment on above: Order Comment: REACT KIM This specimen will be sent to a reference lab for additional testing which includes RPR with reflex to TP-PA if RPR is negative. The RPR will help distinguish between infections with T. pallidum (syphilis) versus a falsely reactive treponemal antibody result. Please see the syphilis testing algorithm link below for more information. [email or web address] Performed By: #### S YPHT #### [facility] ([facility]) [address] [place] [address] VIR TYPE AND SCREENon 03-08-2025 ABO_INTEP A Normal [facility] Comment on above: Performed By: #### T SC #### [facility] ([facility]) [address] [place] [address] VIR Performed By: #### A CHI #### [facility] ([facility]) [address] [place] [address] VIR RH_INTEP Positive Normal [facility] Comment on above: Performed By: #### T SC #### [facility] ([facility]) [address] [place] [address] VIR Performed By: #### A CHI #### [facility] ([facility]) [address] [place] [address] VIR URIC ACIDon 03-08-2025 Urate [Mass/Vol] 4.1 mg/dL Normal 2.6-7.2 [facility] Comment on above: Performed By: #### U RAMON #### [facility] ([facility]) [address] [place] [address] VIR STREP B SCREENon 02-21-2025 STREP B SCREEN CULTURE RESULTS NEGATIVE FOR GROUP B STREPTOCOCCUS BY NUCLEIC ACID AMPLIFICATION Normal [facility] Comment on above: Performed By: #### S BS #### [facility] ([facility]) [address] [place] [address] VIR Glucose 1h post 50g loadon 0 12-27-2024 Glucose, 1 hr PP 50GM dose 118 [facility] Hemoglobin and hematocrit, b loodon 12-27-2024 Hematocrit (Bld) [Volume fraction] 32.7 % [facility] Hemoglobin (Bld) [Mass/Vol] 10.7 g/dL [facility] No Panel Informationon 12-27 [facility] Platelet counton 12-27-2024 Platelets (Bld) [#/Vol] 267 10*3/uL [facility] US OB 14+ WEEKS ANATOMY SCAN on 11-01-2024 US OB 14+ WEEKS ANATOMY SCAN TITLE OF EXAM: OB Ultrasound: REASON FOR EXAM: Anatomy scan. COMPARISON: 09/13/2024 TECHNIQUE: Grayscale and M-mode Doppler imaging is performed. FINDINGS: heart rate: 132 bpm MARTY: 13.5 cm (9.4-21.3 ) BPD: 5.0 cm HC: 18.6 cm AC: 14.5 cm FL: 3.4 cm GA for sonogram: 20.4 wk (19.0-21.8) Cervix length: 4.4 cm WALTER: 03/16/2025 Weight Estimate: Weight: 346 gm / 0 lbs, 12 oz (295-396 gm) Hadlock Normal: 379 gm (314-443 gm) Hadlock Wt%: 26% for 20.7 wks LMP: 06/09/24 AGE BY LMP: 03/16/25 AGE PRIOR US: 6 w 3 d AGE BY US TODAY: 20 w 5 d WALTER BY LMP: 20 w 5 d WALTER PRIOR US: 03/16/25 WALTER BY US TODAY: 03/16/25 Gestation: Single position: Cephalic Placental Location: Posterior Placental Grade: I Heart Rate: 132 bpm Cervical Length: 4.4 cm Lateral Ventricles: Yes Cerebellum: Yes Cisterna Mag: Yes Orbits: Yes 4 Chamber heart: Yes Stomach: Yes Renals: Yes Cord Insert: Yes Heart Rate: 132 bpm 3 Vessel Cord: Yes Bladder: Yes Gender: Female 12 Long Bones: Yes Diaphragm: Yes Long Spine: Yes TRV Spine: Yes Somatic Movement: Yes IMPRESSION: 1. Single intrauterine gestation in cephalic position. Approximately 20 weeks 5 days ultrasound age. 2. Posterior placenta. 3. 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 Limited anatomic survey otherwise appears within normal range. Dictated and transcribed 11/01/24/dpd This report has been electronically signed and approved by the interpreting radiologist. Normal Not Available US OB LIMITED 1+ FETUSESon 0 09-13-2024 US OB LIMITED 1+ FETUSES TITLE OF EXAM: OB Ultrasound: REASON FOR EXAM: Subchorionic hematoma followup. COMPARISON: None TECHNIQUE: Grayscale, color, and M-mode Doppler imaging is performed. FINDINGS: LMP: 06/09/2024 Age by LMP: 13 w 5 d WALTER by LMP: 03/16/2025 heart rate: 141 bpm Cervix Length: 4.4 cm Gestation: Single Position: Breech Placental Location: Fundal Placental Grade: 0 Heart Rate: 141 BPM Somatic Movement: Yes Cervical Length: 4.35 cm Single live intrauterine gestation in breech position, positive cardiac and somatic motion. No appreciable abnormality of the observed structures. Fundal placenta location, its orientation relative to the internal cervical os not directly visualized on the provided images. There is an anechoic, avascular perigestational lesion extending into the placenta measuring 1.9 x 1.8 x 0.6 cm. IMPRESSION: 1. Single live intrauterine gestation as described, without appreciable abnormality on the provided images. 2. Anechoic lesion within the placenta as described, 1.9 cm, probable placental skinner or subchorionic hematoma. Dictated and transcribed 09/13/24/dpd This report has been electronically signed and approved by the interpreting radiologist. Normal Not Available CBC panel Auto (Bld)on 08-10 Erythrocyte distribution width (RBC) [Ratio] 11.7 % 11.0 - 15.0 % [facility] Hematocrit (Bld) [Volume fraction] 41.7 % 35.0 - 45.0 % [facility] Hemoglobin (Bld) [Mass/Vol] 14 g/dL 11.7 - 15.5 g/dL [facility] Interpretation and review of laboratory results Abnormal [facility] MCH (RBC) [Entitic mass] 33 pg 27.0 - 33.[address] [facility] MCHC (RBC) [Mass/Vol] 33.6 g/dL 32.0 - 36.0 g/dL [facility] Comment on above: For adults, a slight decrease in the calculated MCHC value (in the range of 30 to 32 g/dL) is most likely not clinically significant; however, it should be interpreted with caution in correlation with other red cell parameters and the patient's clinical condition. MCV (RBC) [Entitic vol] 98.3 fL 80.0 - 100.[address] [facility] Platelet mean volume (Bld) [Entitic vol] 11.9 fL 7.5 - 12.[address] [facility] Platelets (Bld) [#/Vol] 302 10*3/uL [facility] RBC (Bld) [#/Vol] 4.24 10*6/uL [facility] WBC (Bld) [#/Vol] 11.2 10*3/uL High [facility] Laboratory - Blood bankon ABO group Nom (Bld) A [facility] Blood group antibody screen Ql Detected [facility] Comment on above: Reference range No antibodies detected This assay is a screening test for the detection of red blood cell antibodies. The test is not to be used for pretransfusion screening or for the medical management of an alloimmunized . Rh Nom (Bld) Positive [facility] Comment on above: For additional information, please refer to http://[employer].Preedo/faq/DMG727 (This link is being provided for informational/ educational purposes only.) Laboratory - Chemistry and C hemistry - challengeon 08-10-2024 TSH Qn 0.76 m[IU]/L mIU/L [facility] Comment on above: Reference Range 1-19 Years 0.50-4.30 Ranges First trimester 0.26-2.66 Second trimester 0.55-2.73 Third trimester 0.43-2.91 Laboratory - Hematology and Cell countson 08-10-2024 HbA1c (Bld) [Mass fraction] 5.3 % NINF [facility] Comment on above: For the purpose of s creening for the presence of diabetes: <5.7% Consistent with the absence of diabetes 5.7-6.4% Consistent with increased risk for diabetes (prediabetes) > or =6.5% Consistent with diabetes This assay result is consistent with a decreased risk of diabetes. Currently, no consensus exists regarding use of hemoglobin A1c for diagnosis of diabetes in children. According to [place] Diabetes Association (ADA) guidelines, hemoglobin A1c <7.0% represents optimal control in non- diabetic patients. Different metrics may apply to specific patient populations. Standards of Medical Care in Diabetes(ADA). Laboratory - Microbiology an d Antimicrobial susceptibilityon 08-10-2024 HBV surface Ag IA Ql Non-Reactive NON-REACTIVE [facility] Comment on above: For additional information, please refer to http://[employer]koovy/faq/JZP503 (This link is being provided for informational/ educational purposes only.) HCV Ab IA Ql Non-Reactive NON-REACTIVE [facility] Comment on above: HCV antibody was non-reactive. There is no laboratory evidence of HCV infection. In most cases, no further action is required. However, if recent HCV exposure is suspected, a test for HCV RNA (test code 04280) is suggested. For additional information please refer to http://education.Skoovy/faq/JMY71d7 (This link is being provided for informational/ educational purposes only.) HIV 1+2 Ab+HIV1 p24 Ag IA Ql Non-Reactive NON-REACTIVE [facility] Comment on above: HIV-1 antigen and HI V-1/HIV-2 antibodies were not detected. There is no laboratory evidence of HIV infection. PLEASE NOTE: This information has been disclosed to you from records whose confidentiality may be protected by state law. If your state requires such protection, then the state law prohibits you from making any further disclosure of the information without the specific written consent of the person to whom it pertains, or as otherwise permitted by law. A general authorization for the release of medical or other information is NOT sufficient for this purpose. For additional information please refer to http://[employer].Skoovy/faq/JGG417 (This link is being provided for informational/ educational purposes only.) The performance of this assay has not been clinically validated in patients less than 2 years old. Reagin Ab RPR Ql (S) Non-Reactive NON-REACTIVE [facility] Rubella virus IgG Qn (S) 1.24 [IU]/mL Index [facility] Comment on above: Index Interpretation ----- <0.90 Not consistent with immunity 0.90-0.99 Equivocal > or = 1.00 Consistent with immunity The presence of rubella IgG antibody suggests immunization or past or current infection with rubella virus. No Panel Informationon 08-10 MULTIPLE COLLECTION TIMES FOR SAME TEST TYPE. [facility] Organization Information Site ID: QPT Name: [facility] Address: [address] [place] [id number] Director: Freddy Carlton MD [facility] BASIC METABOLIC PANLon 03-09 Anion gap [Moles/Vol] 8 mmol/L Normal 5-15 [facility] Comment on above: Performed By: #### C BCA, 23007-7, BMP #### [facility] ([id number]) [address] [place] [address] Calcium [Mass/Vol] 8.7 mg/dL Normal 8.5-10.5 [facility] Comment on above: Performed By: #### Olinda KRAMER, , BMP #### [facility] ([id number]) [address] [place] [address] Chloride [Moles/Vol] 101 mmol/L Normal 98-109 [facility] Comment on above: Performed By: #### Olinda KRAMER, , BMP #### [facility] ([id number]) [address] [place] [address] CO2 [Moles/Vol] 23 mmol/L Normal 22-32 [facility] Comment on above: Performed By: #### Olinda KRAMER, , BMP #### [facility] ([id number]) [address] [place] [address] Creatinine [Mass/Vol] 0.63 mg/dL Normal 0.30-1.00 [facility] Comment on above: Result Comment: METH OD TRACEABLE TO IDMS STANDARD Performed By: #### Olinda KRAMER, , BMP #### [facility] ([id number]) [address] [place] [address]66 eGFR (CKD-EPI) NON-RACE DEPENDENT >90 Normal >59 [facility] Comment on above: Result Comment: Reported eGFR is based on the CKD-EPI 2020 equation that does not use a race coefficient. Performed By: #### Olinda KRAMER, , BMP #### [facility] ([id number]) [address] [place] [address] Glucose [Mass/Vol] 102 mg/dL High 65-99 [facility] Comment on above: Performed By: #### Olinda KRAMER, , BMP #### [facility] ([id number]) [address] [place] [address] Potassium [Moles/Vol] 3.5 mmol/L Normal 3.5-5.0 [facility] Comment on above: Performed By: #### Olinda KRAMER , BMP #### [facility] ([id number]) [address] [place] [address]56 Sodium [Moles/Vol] 132 mmol/L Low 134-146 [facility] Comment on above: Performed By: #### Olinda KRAMER , BMP #### [facility] ([id number]) [address] [place] [address] Urea nitrogen [Mass/Vol] 13 mg/dL Normal 5-23 [facility] Comment on above: Performed By: #### Olinda KRAMER , BMP #### [facility] ([id number]) [address] [place] [address]85[address] CBC AND AUTO DIFFon 08-03-21 24 ABSOLUTE BASOPHIL 0.0 X10E9/L Normal 0.0-0.2 [facility] Comment on above: Performed By: #### Olinda KRAMER , BMP #### [facility] ([id number]) [address] [place] [address] ABSOLUTE NEUTROPHIL 6.0 X10E9/L Normal 1.5-6.6 [facility] Comment on above: Performed By: #### Olinda KRAMER , BMP #### [facility] ([id number]) [address] [place] [address]606 Basophils/100 WBC (Bld) 0.5 % Normal [facility] Comment on above: Performed By: #### Olinda KRAMER , BMP #### [facility] ([id number]) [address] [place] [address]652 Eosinophils (Bld) [#/Vol] 0.1 10*3/uL Normal 0.0-0.4 [facility] Comment on above: Performed By: #### Olinda KRAMER, , BMP #### [facility] ([id number]) [address] [place] [address] Eosinophils/100 WBC (Bld) 0.9 % Normal [facility] Comment on above: Performed By: #### Olinda KRAMER , BMP #### [facility] ([id number]) [address] [place] [address]85[address] Erythrocyte distribution width (RBC) [Ratio] 12.3 % Normal 11.5-15.0 [facility] Comment on above: Performed By: #### Olinda KRAMER , BMP #### [facility] ([id number]) [address] [place] [address]652 Hematocrit (Bld) [Volume fraction] 39.0 % Normal 35-47 [facility] Comment on above: Performed By: #### Olinda KRAMER , BMP #### [facility] ([id number]) [address] [place] [address]2624 Hemoglobin (Bld) [Mass/Vol] 13.4 g/dL Normal 11.7-15.5 [facility] Comment on above: Performed By: #### Olinda KRAMER , BMP #### [facility] ([id number]) [address] [place] [address] 56785 Lymphocytes (Bld) [#/Vol] 1.6 10*3/uL Normal 1.0-3.5 [facility] Comment on above: Performed By: #### Olinda KRAMER , BMP #### [facility] ([id number]) [address] [place] [address] 52151 Lymphocytes/100 WBC (Bld) 19.7 % Normal [facility] Comment on above: Performed By: #### Olinda KRAMER , BMP #### [facility] ([id number]) [address] [place] [address] 29551 MCH (RBC) [Entitic mass] 32.7 pg Normal 27-34 [facility] Comment on above: Performed By: #### Olinda KRAMER, , BMP #### [facility] ([id number]) [address] [place] [address] 26187 MCHC (RBC) [Mass/Vol] 34.3 g/dL Normal 32-36 [facility] Comment on above: Performed By: #### Olinda KRAMER , BMP #### [facility] ([id number]) [address] [place] [address] 53232 MCV (RBC) [Entitic vol] 96 fL Normal 80-100 [facility] Comment on above: Performed By: #### Olinda KRAMER , BMP #### [facility] ([id number]) [address] [place] [address] 36127 Monocytes (Bld) [#/Vol] 0.5 10*3/uL Normal 0-0.9 [facility] Comment on above: Performed By: #### Olinda KRAMER , BMP #### [facility] ([id number]) [address] [place] [address] 95044 Monocytes/100 WBC (Bld) 5.8 % Normal [facility] Comment on above: Performed By: #### Olinda KRAMER , BMP #### [facility] ([id number]) [address] [place] [address] 97814 Neutrophils/100 WBC (Bld) 73.1 % Normal [facility] Comment on above: Performed By: #### Olinda KRAMER, , BMP #### [facility] ([id number]) [address] [place] [address] 29922 Platelet mean volume (Bld) [Entitic vol] 9.4 fL Normal 7-12 [facility] Comment on above: Performed By: #### Olinda KRAMER, , BMP #### [facility] ([id number]) [address] [place] [address] 61920 Platelets (Bld) [#/Vol] 272 10*3/uL Normal 150-450 [facility] Comment on above: Performed By: #### Olinda KRAMER, , BMP #### [facility] ([id number]) [address] [place] [address] 61059 RBC COUNT 4.08 X10E12/L Normal 3.80-5.20 [facility] Comment on above: Performed By: #### Olinda KRAMER , BMP #### [facility] ([id number]) [address] [place] [address] 40658 WBC (Bld) [#/Vol] 8.2 10*3/uL Normal 4.0-11.0 [facility] Comment on above: Performed By: #### Olinda KRAMER, , BMP #### [facility] ([id number]) [address] [place] [address] 32352 HCG ( test) Ql (U)o n 03-09-2024 Beta HCG ( test) Ql (U) Positive Abnormal NEG [facility] Comment on above: Performed By: #### 2 106-3 #### [facility] ([id number]) [address] [place] [address] 49694 HCG.beta subunit IA 3rd IS Q non 03-09-2024 HCG.beta subunit Qn 2408 m[IU]/mL Normal [facility] Comment on above: Result Comment: NEW REFERENCE RANGE WEEKS (SINCE LMP) MIU/mL 3 WEEKS 5 - 50 4 WEEKS 5 - 426 5 WEEKS 18 - 7,340 6 WEEKS 1,080 - 56,500 7-8 WEEKS 7,650 - 229,000 9-12 WEEKS 25,700 - 288,000 13-16 WEEKS 13,300 - 254,000 17-24 WEEKS 4,060 - 165,400 25-40 WEEKS 3,640 - 117,000 MALES AND NON- FEMALES - <5 MIU/mL This test has been FDA approved for use in only. Elevated levels are not necessarily diagnostic for trophoblastic or nontrophoblastic neoplasms. Performed By: #### C BCA, 02504-1, BMP #### [facility] ([id number]) [address] [place] [address] 07192 URN MACROSCOPIC NURon 2023 BILIRUBIN NARENDRA Negative Normal NEG [facility] Comment on above: Performed By: #### N UM #### [facility] ([id number]) [address] [place] [address] 16520 BLOOD/HGB NARENDRA Trace Abnormal NEG [facility] Comment on above: Performed By: #### N UM #### [facility] ([id number]) [address] [place] [address] 72866 GLUCOSE NARENDRA Negative Normal [facility] Comment on above: Performed By: #### N UM #### [facility] ([id number]) [address] [place] [address] 98932 KETONES NARENDRA Negative Normal NEG [facility] Comment on above: Performed By: #### N UM #### [facility] ([id number]) [address] [place] [address] 48024 LEUKOCYTE ESTERASE NARENDRA Trace Abnormal NEG [facility] Comment on above: Performed By: #### N UM #### [facility] ([id number]) [address] [place] [address] 00032 NITRITE NARENDRA Negative Normal NEG [facility] Comment on above: Performed By: #### N UM #### [facility] ([id number]) [address] [place] [address] 62639 PH NARENDRA 5.5 Normal 5.0-8.5 [facility] Comment on above: Performed By: #### N UM #### [facility] ([id number]) [address] [place] [address] 61418 PROTEIN NARENDRA Negative Normal NEG [facility] Comment on above: Performed By: #### N UM #### [facility] ([id number]) [address] [place] [address] 01598 SPECIFIC GRAVITY NARENDRA 1.015 Normal 1.003-1.035 [facility] Comment on above: Performed By: #### N UM #### [facility] ([id number]) [address] [place] [address] 35913 UROBILINOGEN NARENDRA 0.2 eu/dL Normal <1.1 [facility] Comment on above: Performed By: #### N UM #### [facility] ([id number]) [address] [place] [address]492 US PREG LESS THAN 14 WKS WIT H TRANSVAGINALon 03-09-2024 US PREG LESS THAN 14 WKS WITH TRANSVAGINAL US PREG LESS THAN 14 WKS WITH TRANSVAGINAL HISTORY AND/OR TECH NOTES Clinical History: ?Vaginal bleeding Current Signs/Symptoms: ?vaginal bleeding and cramping x 1 day Surgical History: ?none Previous Exams: ?none LMP: 01/22/2024 PROCEDURE Ultrasound of the female pelvis to check early status Transabdominal and transvaginal imaging COMPARISON no comparison currently available FINDINGS Uterus 77 x 44 x 58 mm or 103 cc Right ovary 40 x 21 x 28 mm or 12.5 cc Left ovary 35 x 20 x 25 mm or 9 cc Transabdominal and transvaginal scans Slightly anteflexed uterine fundus Right ovary shown with mild hyperemic area suggesting a small 17 mm corpus luteum Mild prominence of adnexal vessels on the left side Left ovary shown with follicles No large cyst or suspicious free fluid There is a small cystic or saclike structure in the endometrium It measures 6 mm Placenta is not developed or evaluated this stage No yolk sac or pole seen IMPRESSION: 6 mm cystic or saclike structure in the endometrium without yolk sac or pole visible at this point Repeat scan in one to 2 weeks suggested assuming hCG levels increase or remain elevated, and attempt to confirm viable intrauterine and exclude ectopic Otherwise repeat study in 4-6 weeks to check for clearing and normalization -------- Finalized by Damien Segovia MD on 03/09/2024 11:18 AM [facility] Vital Signs Date Time Vital Sign Value Performing Clinician Facility 03-14-2025 09:02-0400 Body height 165.1 cm Yamile Guidry [facility] Work Phone: [facility] 03-14-2025 09:02-0400 Body mass index (BMI) [Ratio] 30.62 kg/m2 Yamile Guidry [facility] Work Phone: [facility] 03-14-2025 09:02-0400 Body weight 83.46 kg Yamilekristel Guidry [facility] Work Phone: [facility] 03-14-2025 09:02-0400 Diastolic blood pressure 70 mm[Hg] Yamile Guidry [facility] Work Phone: [facility] 03-14-2025 09:02-0400 Heart rate 78 /min Yamilekristel Guidry [facility] Work Phone: [facility] 03-14-2025 09:02-0400 Respiratory rate 18 /min Yamile Guidry [facility] Work Phone: [facility] 03-14-2025 09:02-0400 SaO2% (BldA) [Mass fraction] 99 % Yamile Guidry CNM Work Phone: [facility] 03-14-2025 09:02-0400 Systolic blood pressure 110 mm[Hg] Yamile Guidry CNToñito Work Phone: [facility] 03-07-2025 08:33-0400 Body mass index (BMI) [Ratio] 34 kg/m2 Shyann Lopez MD Work Phone: [facility] 03-07-2025 08:33-0400 Body weight 89.9 kg Shyann Lopez MD Work Phone: [facility] 03-07-2025 08:33-0400 Diastolic blood pressure 68 mm[Hg] Shyann Lopez MD Work Phone: [facility] 03-07-2025 08:33-0400 Systolic blood pressure 122 mm[Hg] Shyann Lopez MD Work Phone: [facility] 02-28-2025 08:27-0400 Body mass index (BMI) [Ratio] 33.88 kg/m2 Rodrigo Lisa MD Work Phone: [facility] 02-28-2025 08:27-0400 Body weight 89.58 kg Rodrigo Lisa MD Work Phone: [facility] 02-28-2025 08:27-0400 Diastolic blood pressure 64 mm[Hg] Rodrigo Lisa MD Work Phone: [facility] 02-28-2025 08:27-0400 Systolic blood pressure 130 mm[Hg] Rodrigo Lisa MD Work Phone: [facility] 02-21-2025 16:35-0400 Diastolic blood pressure 64 mm[Hg] Shyann Lopez MD Work Phone: [facility] 02-21-2025 16:35-0400 Systolic blood pressure 126 mm[Hg] Shyann Lopez MD Work Phone: [facility] 02-21-2025 15:36-0400 Body mass index (BMI) [Ratio] 32.94 kg/m2 Shyann Lopez MD Work Phone: [facility] 02-21-2025 15:36-0400 Body weight 87.09 kg Shyann Lopez MD Work Phone: [facility] 02-07-2025 14:36-0400 Body mass index (BMI) [Ratio] 32.84 kg/m2 Estefani Lafyatis DO Work Phone: [facility] 02-07-2025 14:36-0400 Body weight 86.82 kg Estefani Lafyatis DO Work Phone: [facility] 02-07-2025 14:36-0400 Diastolic blood pressure 66 mm[Hg] Estefani Lafyatis DO Work Phone: [facility] 02-07-2025 14:36-0400 Systolic blood pressure 118 mm[Hg] Estefani Lafyatis DO Work Phone: [facility] 01-24-2025 14:32-0400 Body mass index (BMI) [Ratio] 32.75 kg/m2 Estefani Lafyatis DO Work Phone: [facility] 01-24-2025 14:32-0400 Body weight 86.59 kg Estefani Lafyatis DO Work Phone: [facility] 01-24-2025 14:32-0400 Diastolic blood pressure 78 mm[Hg] Estefani Lafyatis DO Work Phone: [facility] 01-24-2025 14:32-0400 Systolic blood pressure 128 mm[Hg] Estefani Lafyatis DO Work Phone: [facility] 01-23-2025 13:48-0400 Body height 162.6 cm Ken De La Vega MD Work Phone: [facility] 01-23-2025 13:48-0400 Body mass index (BMI) [Ratio] 32.49 kg/m2 Ken De La Vega MD Work Phone: [facility] 01-23-2025 13:48-0400 Body weight 85.91 kg Ken De La Vega MD Work Phone: [facility] 01-23-2025 13:48-0400 Diastolic blood pressure 68 mm[Hg] Ken De La Vega MD Work Phone: [facility] 01-23-2025 13:48-0400 Heart rate 103 /min Ken De La Vega MD Work Phone: [facility] 01-23-2025 13:48-0400 Systolic blood pressure 115 mm[Hg] Ken De La Vega MD Work Phone: [facility] 12-27-2024 08:53-0400 Body mass index (BMI) [Ratio] 30.45 kg/m2 Yamile Floro CNM Work Phone: [facility] 12-27-2024 08:53-0400 Body weight 83.01 kg Yamile Floro CNM Work Phone: [facility] 12-27-2024 08:53-0400 Diastolic blood pressure 80 mm[Hg] Yamile Floro CNM Work Phone: [facility] 12-27-2024 08:53-0400 Systolic blood pressure 118 mm[Hg] Yamile Floro CNM Work Phone: [facility] 12-11-2024 11:37-0400 Body height 162.6 cm Ken De La Vega MD Work Phone: [facility] 12-11-2024 11:37-0400 Body mass index (BMI) [Ratio] 30.52 kg/m2 Ken De La Vega MD Work Phone: [facility] 12-11-2024 11:37-0400 Body weight 80.7 kg Ken De La Vega MD Work Phone: [facility] 12-11-2024 11:37-0400 Diastolic blood pressure 82 mm[Hg] Ken De La Vega MD Work Phone: [facility] 12-11-2024 11:37-0400 Heart rate 87 /min Ken De La Vega MD Work Phone: [facility] 12-11-2024 11:37-0400 Systolic blood pressure 122 mm[Hg] Ken De La Vega MD Work Phone: [facility] 11-29-2024 09:05-0400 Body mass index (BMI) [Ratio] 28.79 kg/m2 Yamile Floro CNM Work Phone: [facility] 11-29-2024 09:05-0400 Body weight 78.47 kg Yamile Floro CNM Work Phone: [facility] 11-29-2024 09:05-0400 Diastolic blood pressure 68 mm[Hg] Yamile Floro CNM Work Phone: [facility] 11-29-2024 09:05-0400 Systolic blood pressure 110 mm[Hg] Yamile Floro CNM Work Phone: [facility] 11-01-2024 08:53-0400 Body mass index (BMI) [Ratio] 27.96 kg/m2 Yamile Floro CNM Work Phone: [facility] 11-01-2024 08:53-0400 Body weight 76.2 kg Yamile Floro CNM Work Phone: [facility] 11-01-2024 08:53-0400 Diastolic blood pressure 70 mm[Hg] Yamile Floro CNM Work Phone: [facility] 11-01-2024 08:53-0400 Systolic blood pressure 110 mm[Hg] Yamile Floro CNM Work Phone: [facility] 10-04-2024 08:59-0500 Body mass index (BMI) [Ratio] 26.79 kg/m2 Yamile Floro CNM Work Phone: [facility] 10-04-2024 08:59-0500 Body weight 73.03 kg Yamile Floro CNM Work Phone: [facility] 10-04-2024 08:59-0500 Diastolic blood pressure 78 mm[Hg] Yamile Floro CNM Work Phone: [facility] 10-04-2024 08:59-0500 Systolic blood pressure 118 mm[Hg] Yamile Floro CNM Work Phone: [facility] 09-06-2024 08:55-0500 Body mass index (BMI) [Ratio] 26.63 kg/m2 Yamile Floro CNM Work Phone: [facility] 09-06-2024 08:55-0500 Body weight 72.58 kg Yamile Floro CNM Work Phone: [facility] 09-06-2024 08:55-0500 Diastolic blood pressure 80 mm[Hg] Yamile Floro CNM Work Phone: [facility] 09-06-2024 08:55-0500 Systolic blood pressure 118 mm[Hg] Ymaile Floro CNM Work Phone: [facility] 08-09-2024 10:54-0500 Body mass index (BMI) [Ratio] 26.63 kg/m2 Yamile Floro CNM Work Phone: [facility] 08-09-2024 10:54-0500 Body weight 72.58 kg Yamile Floro CNM Work Phone: [facility] 08-09-2024 10:54-0500 Diastolic blood pressure 70 mm[Hg] Yamile Floro CNM Work Phone: [facility] 08-09-2024 10:54-0500 Systolic blood pressure 110 mm[Hg] Yamile Floro CNM Work Phone: [facility] 07-21-2024 10:36-0500 Body height 165.1 cm [facility] Nurse [facility] 07-21-2024 10:14-0500 Body mass index (BMI) [Ratio] 26.96 kg/m2 [facility] 07-21-2024 10:140500 Body weight 73.48 kg [facility] Nurse [facility] Encounters Encounter Date Encounter Type Care Provider Facility Start: 03-14-2025 End: 03-14-2025 Office outpatient visit 15 minutes Yamilekristel Guirdy CNM Work Phone: [facility] Comment on above: proble m (Primary Dx); Sore nipples due to ([facility]-HCC) Start: 03-13-2025 End: 03-13-2025 Telephone encounter Yamile Guidry CNM Work Phone: [facility] Comment on above: Coordination Of Care Start: 03-08-2025 End: 03-12-2025 Evaluation and management of inpatient [facility] Start: 03-07-2025 End: 03-07-2025 Subsequent care visit Shyann Lopez MD Work Phone: [facility] Comment on above: GA: 38w6d Start: 03-07-2025 End: 03-07-2025 ambulatory SHYANN LOPEZ [facility] Start: 02-28-2025 End: 02-28-2025 Patient encounter procedure Rodrigo Lisa MD Work Phone: [facility] Comment on above: GA: 37w6d Start: 02-28-2025 End: 02-28-2025 [facility] Start: 02-21-2025 End: 02-21-2025 Subsequent care visit Shyann Lopez MD Work Phone: [facility] Comment on above: GA: 36w6d Start: 02-21-2025 End: 02-21-2025 ambulatory EDUARDO RAMOS [facility] Start: 02-21-2025 End: 02-21-2025 Telephone encounter Yamile Guidry CNToñito Work Phone: [facility] Start: 02-07-2025 End: 02-07-2025 Patient encounter procedure Estefani Wiggins DO Work Phone: [facility] Comment on above: GA: 34w6d Start: 02-07-2025 End: 02-07-2025 ambulatory [facility] Start: 02-07-2025 End: 02-07-2025 Documentation procedure Patel Ellison MD MPH Work Phone: [facility] Start: 02-05-2025 End: 02-05-2025 Documentation procedure [facility] Start: 01-24-2025 End: 01-24-2025 Initial care visit Estefani Wiggins DO Work Phone: [facility] Comment on above: GA: 32w6d Start: 01-24-2025 End: 01-24-2025 [facility] Start: 01-23-2025 End: 01-23-2025 Office outpatient visit 15 minutes Ken De La Vega MD Work Phone: [facility] Comment on above: Cleft lip and cleft palate, left (Primary Dx) Start: 01-23-2025 End: 01-23-2025 ambulatory SHYANN LOPEZ [facility] Start: 01-16-2025 End: 01-16-2025 ambulatory YAMILE L ANDRESO [facility] Start: 12-27-2024 End: 12-27-2024 Bamboo flowsheet Yamile L Floro CNM Work Phone: [facility] Start: 12-27-2024 End: 12-27-2024 Bamboo flowsheet Yamile L Floro CNM Work Phone: [facility] Start: 12-27-2024 End: 12-27-2024 Office outpatient visit 15 minutes Yamile L Floro CNM Work Phone: [facility] Comment on above: Encounter for prenat al care of first , third trimester (Primary Dx); Screening for diabetes mellitus (DM); Screening for iron deficiency anemia; Congenital anomaly Start: 12-27-2024 End: 12-27-2024 ambulatory YAMILE L FLORO Not Available Start: 12-11-2024 End: 12-11-2024 Office consultation new/estab patient 60 min Ken De La Vega MD Work Phone: [facility] Comment on above: Cleft lip and cleft palate, left (Primary Dx) Start: 12-11-2024 End: 12-11-2024 Orders Only Heather Lomas RN [facility] Comment on above: Cleft lip and cleft palate, left (Primary Dx) Start: 11-29-2024 End: 11-29-2024 Bamboo flowsheet Yamile L Floro CNM Work Phone: [facility] Start: 11-29-2024 End: 11-29-2024 Bamboo flowsheet Yamile L Floro CNM Work Phone: [facility] Start: 11-29-2024 End: 11-29-2024 Office outpatient visit 15 minutes Yamile L Floro CNM Work Phone: [facility] Comment on above: Encounter for prenat al care of first , second trimester (Primary Dx); Congenital anomaly Start: 11-29-2024 End: 11-29-2024 ambulatory YAMILE L FLORO Not Available Start: 11-07-2024 End: 11-09-2024 Chart abstracting Ken De La Vega MD Work Phone: [facility] Start: 11-03-2024 End: 11-03-2024 Telephone encounter [facility] Provider Unallocated Work Phone: [facility] Start: 11-01-2024 End: 11-01-2024 Bamboo flowsheet Yamile L Floro CNM Work Phone: [facility] Start: 11-01-2024 End: 11-01-2024 Bamboo flowsheet Yamile L Floro CNM Work Phone: [facility] Start: 11-01-2024 End: 11-01-2024 Office outpatient visit 15 minutes Yamile L Floro CNM Work Phone: [facility] Comment on above: Encounter for prenat al care of first , second trimester ([facility]) (Primary Dx); related condition in second trimester ([facility]) Start: 11-01-2024 End: 11-01-2024 ambulatory YAMILE L FLORO Not Available Start: 10-04-2024 End: 10-04-2024 Bamboo flowsheet Yamile L Floro CNM Work Phone: [facility] Start: 10-04-2024 End: 10-04-2024 Bamboo flowsheet Yamile L Floro CNM Work Phone: [facility] Start: 10-04-2024 End: 10-04-2024 Office outpatient visit 15 minutes Yamile L Floro CNM Work Phone: [facility] Comment on above: Nonspecific dizzines s (Primary Dx); Encounter for care of first , second trimester; related condition in second trimester Start: 10-04-2024 End: 10-04-2024 ambulatory YAMILE L FLORO Not Available Start: 09-13-2024 End: 09-13-2024 ambulatory YAMILE L FLORO Not Available Start: 09-06-2024 End: 09-06-2024 Bamboo flowsheet Yamile L Floro CNM Work Phone: [facility] Start: 09-06-2024 End: 09-06-2024 Bamboo flowsheet Yamile L Floro CNM Work Phone: [facility] Start: 09-06-2024 End: 09-06-2024 Subsequent care visit Yamile L Floro CNM Work Phone: [facility] Comment on above: Encounter for prenat al care of first , first trimester (Primary Dx) Start: 09-06-2024 End: 09-06-2024 ambulatory YAMILE GUIDRY Not Available Start: 08-09-2024 End: 08-09-2024 Bamboo flowsheet Yamile Guidry CNM Work Phone: [facility] Start: 08-09-2024 End: 08-09-2024 Bamboo flowsheet Yamile Guidry CNM Work Phone: [facility] Start: 08-09-2024 End: 08-09-2024 Initial care visit Yamile Guidry CNM Work Phone: [facility] Comment on above: Encounter for superv ision of other normal , first trimester (Primary Dx); examination or test, positive result Start: 08-09-2024 End: 08-09-2024 ambulatory YAMILE GUIDRY Not Available Start: 07-21-2024 End: 07-21-2024 ambulatory [facility] Comment on above: GA: 6w0d Start: 03-16-2024 End: 03-16-2024 ambulatory YAMILE GUIDRY Not Available Start: 03-09-2024 End: 03-10-2024 Emergency department patient visit BO SOTOMAYOR [facility] Start: 12-09-2023 End: 12-09-2023 [facility] Date Procedure Procedure Detail Performing Clinician Start: 03-08-2025 Antibody screen YAMILE GUIDRY Comment on above: Performed By: #### T SC #### [facility] [address] [place] [address] VIR Start: 12-27-2024 Blood count platelet automated Estefani Wiggins DO Work Phone: Start: 12-27-2024 GLU 1H POST 50G LOAD Lucio Wiggins DO Work Phone: Start: 08-09-2024 Antibody screen rbc each serum technique Yamile Guidry CN Work Phone: Start: 08-09-2024 Hemoglobin glycosyla padilla a1c Yamile Guidry CN Work Phone: Start: 08-09-2024 Iaad ia hepatitis b surface antigen Yamile Guidry [facility] Work Phone: Start: 08-09-2024 TSH W/REFLEX TO FT4 Chitra kristel Guidry CN Work Phone: Plan of Treatment Date Care Activity Detail Author Start: 04-20-2027 DTaP,Tdap and Td Vaccines (7 - Td or Tdap) DTaP,Tdap and Td Vaccines (7 - Td or Tdap) [facility] Start: 03-07-2026 Adult BMI Screening Adult BMI Screen ing [facility] Start: 03-07-2026 Tobacco Screening Tobacco Screening [facility] Start: 02-28-2026 Adult BMI Screening Adult BMI Screen ing [facility] Start: 02-28-2026 Tobacco Screening Tobacco Screening [facility] Start: 02-21-2026 Adult BMI Screening Adult BMI Screen ing [facility] Start: 02-21-2026 Tobacco Screening Tobacco Screening [facility] Start: 02-07-2026 Adult BMI Screening Adult BMI Screen ing [facility] Start: 02-07-2026 Tobacco Screening Tobacco Screening [facility] Start: 01-24-2026 Adult BMI Screening Adult BMI Screen ing [facility] Start: 01-24-2026 Tobacco Screening Tobacco Screening [facility] Start: 12-11-2025 Adult BMI Screening Adult BMI Screen ing [facility] Start: 12-11-2025 Tobacco Screening Tobacco Screening [facility] Start: 12-11-2025 End: 12-11-2025 US MFM with or without consult US MFM with or without consult Imaging Routine Cleft lip and cleft palate, left Expected: 12/11/2025 (Approximate), Expires: 12/11/2025 [facility] Work Phone: Comment on above: Expected: 12/11/2025 (Approximate), Expires: 12/11/2025 Start: 04-02-2025 Influenza vaccination P [facility] Start: 03-09-2025 Adult BMI Screening Adult BMI Screen ing [facility] Start: 03-09-2025 Tobacco Screening Tobacco Screening [facility] Start: 03-07-2025 End: 03-07-2025 Patient encounter procedure 03/07/2025 8:45 AM EDT Routine [facility] [address] [place] [id number] Shyann Lopez MD [address] [place] [id number] [facility] Start: 02-28-2025 End: 02-28-2025 Patient encounter procedure 02/28/2025 8:30 AM EDT Routine [facility] [address] [place] [id number] Rodrigo Lisa MD [address] [place] [address], [address] [address] [facility] Start: 02-21-2025 End: 02-21-2025 Patient encounter procedure [facility] Start: 02-07-2025 End: 02-07-2025 Patient encounter procedure 02/07/2025 2:45 PM EDT Routine [facility] [address] [place] [id number] Estefani Wiggins DO [address] [facility] [place] [address] [facility] Start: 02-07-2025 End: 02-07-2026 US MFM with or without consult US MFM with or without consult Imaging Routine Cleft lip and cleft palate, left Expected: 02/07/2025, Expires: 02/07/2026 [facility] Work Phone: Comment on above: Expected: 02/07/2025 , Expires: 02/07/2026 Start: 01-23-2025 End: 01-23-2025 Patient encounter procedure [facility] Start: 12-27-2024 End: 12-27-2025 CBC panel - Blood by Automated count CBC Lab Routine Screening for iron deficiency anemia Expected: 12/27/2024 (Approximate), Expires: 12/27/2025 [facility] Work Phone: Comment on above: Expected: 12/27/2024 (Approximate), Expires: 12/27/2025 Start: 12-27-2024 End: 12-27-2025 GLUCOSE, GESTATIONAL SCREEN (50G)-135 CUTOFF GLUCOSE, GESTATIONAL SCREEN (50G)-135 CUTOFF Lab Routine Screening for diabetes mellitus (DM) Expected: 12/27/2024 (Approximate), Expires: 12/27/2025 [facility] Comment on above: Expected: 12/27/2024 (Approximate), Expires: 12/27/2025 Start: 12-27-2024 End: 12-27-2024 Patient encounter procedure [facility] Comment on above: Arrived Start: 12-11-2024 End: 12-11-2024 Patient encounter procedure [facility] Start: 11-29-2024 End: 11-29-2024 Patient encounter procedure [facility] Comment on above: Arrived Start: 11-01-2024 End: 11-01-2024 Professional / ancillary services management 11/01/2024 9:30 AM EDT Ancillary Procedure [facility] [address] [place] [address] [facility] Start: 11-01-2024 End: 11-01-2024 Patient encounter procedure [facility] Comment on above: Arrived Start: 10-04-2024 End: 10-04-2025 US for US OB 14+ weeks anatomy scan Imaging Routine related condition in second trimester Expected: 10/04/2024, Expires: 10/04/2025 [facility] Work Phone: Comment on above: Expected: 10/04/2024 , Expires: 10/04/2025 Start: 10-04-2024 End: 10-04-2024 Patient encounter procedure [facility] Comment on above: Arrived Start: 09-06-2024 End: 09-06-2024 Patient encounter procedure 09/06/2024 9:00 AM EST Routine [facility] [address] [place] [address] Yamile Guidry, CNM [address] [place] [address] Arrived [facility] Comment on above: Arrived Start: 08-09-2024 End: 08-09-2025 Bacteria identified in Urine by Culture Urine culture Microbiology Routine examination or test, positive result Expected: 08/09/2024 (Approximate), Expires: 08/09/2025 [facility] Comment on above: Expected: 08/09/2024 (Approximate), Expires: 08/09/2025 Start: 08-09-2024 End: 08-09-2025 DRUG TOX MONITORIGN 6 W/ CONF,URINE DRUG TOX MONITORIGN 6 W/ CONF,URINE Lab Routine examination or test, positive result Expected: 08/09/2024 (Approximate), Expires: 08/09/2025 [facility] Work Phone: Comment on above: Expected: 08/09/2024 (Approximate), Expires: 08/09/2025 Start: 08-09-2024 End: 08-09-2025 Neisseria gonorrhoeae DNA [Presence] in Cervical mucus by KERRI with probe detection C. trachomatis / N. gonorrhoeae, DNA probe Pathology and Cytology Routine examination or test, positive result Expected: 08/09/2024 (Approximate), Expires: 08/09/2025 [facility] Comment on above: Expected: 08/09/2024 (Approximate), Expires: 08/09/2025 Start: 08-09-2024 End: 08-09-2025 URINALYSIS MICROSCOPIC URINALYSIS MICROSCOPIC Lab Routine examination or test, positive result Expected: 08/09/2024 (Approximate), Expires: 08/09/2025 [facility] Comment on above: Expected: 08/09/2024 (Approximate), Expires: 08/09/2025 Start: 08-09-2024 End: 08-09-2024 Patient encounter procedure 08/09/2024 11:00 AM EST Routine [facility] [address] [place] [address] Yamile Guidry CNM [address] [place], [place] [id number] Arrived [facility] Comment on above: Arrived Start: 04-02-2024 COVID-19 Vaccine ( season) COVID-19 Vaccine ( season) [facility] Start: 2024 DTaP,Tdap and Td Vaccines (1 - Tdap) DTaP,Tdap and Td Vaccines (1 - Tdap) [facility] Start: 2024 Hepatitis B Vaccine (1 of 3 - 19+ 3-dose series) Hepatitis B Vaccine (1 of 3 - 19+ 3-dose series) [facility] Start: 2023 Adult BMI Follow Up Plan Adult BMI Follow Up Plan [facility] Start: 2021 Meningococcal B Vacc ine (1 of 2 - Standard) Meningococcal B Vaccine (1 of 2 - Standard) [facility] Start: 2020 HPV Vaccine (1 - 3-d ose series) HPV Vaccine (1 - 3-dose series) [facility] Start: 2018 Varicella Vaccine (1 of 2 - 13+ 2-dose series) Varicella Vaccine (1 of 2 - 13+ 2-dose series) [facility] Start: 2017 Depression Screening Depression Scre ening [facility] Start: 2012 DTaP/Tdap/Td Vaccine (1 - Tdap) DTaP/Tdap/Td Vaccine (1 - Tdap) [facility] Start: 2006 Dental Hygiene (Due every 6 months) Dental Hygiene (Due every 6 months) [facility] Start: 2006 MMR Vaccine (1 of 1 - Standard series) MMR Vaccine (1 of 1 - Standard series) [facility] Start: 2005 Dental Oral Exam [facility]: 2005 Screening for Chlamy ovidio trachomatis Chlamydia Screening [facility] Strep B screen Strep B screen Microbiology Routine care, subsequent in third trimester 02/21/2025 4:30 PM EDT [employer] Work Phone: End: 12-11-2025 Unlisted Lab Test Unlisted Lab Test Lab Routine Cleft lip and cleft palate, left 1 Occurrences starting 12/11/2024 until 12/11/2025 [employer] Work Phone: Comment on above: 1 Occurrences starti ng 12/11/2024 until 12/11/2025 Immunizations Immunization Date Immunization Notes Care Provider Jacky plascencia 08-28-2008 influenza virus vaccine, unspecified formulation Ken De La Vega MD Work Phone: [facility] Payers Date Payer Category Payer Medicaid [id number] 315 2019 Medicaid (Managed Care) 1.2. [id number] 315 2016 Medicaid HMO [id number] 2016 Medicaid [id number] 2005 Unknown [id number] 2.16.8 40.1.393631.3.579.2.1286 2005 Unknown [id number] 2.16.8 40.1.004805.3.579.2.1286 2005 Unknown [id number] 2.16.8 40.1.407207.3.579.2.6 2005 Unknown [id number] 2.16.84 0.1.851208.3.579.2.1259 2005 Unknown [id number] 2.16.84 0.1.564975.3.579.2.1259 2005 Unknown [id number] 2.16.84 0.1.482524.3.579.2.1259 2005 Unknown [id number] 2.16.84 0.1.482949.3.579.2.1259 2005 Unknown [id number] 2.16.84 0.1.463034.3.579.2.1259 2005 Unknown [id number] 2.16.84 0.1.662219.3.579.2.1258 2005 Unknown [id number] 2.16.84 0.1.614517.3.579.2.9 2005 Unknown [id number] 2.16.84 0.1.466031.3.579.2.125 2005 Unknown [id number] 2.16.84 0.1.152258.3.579.2.1259 2005 Unknown [id number] 2.16.84 0.1.948375.3.579.2.1258 2005 Unknown [id number] 2.16. 840.1.783994.3.579.2.430 2005 Unknown [id number] 2. 840.1.719336.3.579.2.128 2005 Unknown [id number] 2. 840.1.283832.3.579.2.128 2005 Unknown [id number] 2. 840.1.033269.3.579.2.1285 2005 Unknown [id number] 2. 840.1.494173.3.579.2.128 2005 Unknown [id number] 2. 840.1.815706.3.579.2.128 2005 Unknown [id number] 2.16. 840.1.264835.3.579.2.1286 2005 Unknown [id number] 2.16. 840.1.639740.3.579.2.1286 2005 Unknown [id number] 2.16. 840.1.417422.3.579.2.1286 2005 Unknown [id number] 2.16. 840.1.267123.3.579.2.1286 2005 Unknown [id number] 2.16. 840.1.401080.3.579.2.1286 2005 Unknown [id number] 2.16. 840.1.520505.3.579.2.1286 Social History Date Type Detail Facility Start: 07-21-2024 End: 01-16-2025 Tobacco smoking status MIIS Never smoked tobacco [facility] Start: 07-21-2024 Tobacco use and exposure Former smokeless tobacco user [facility] Start: 07-21-2024 End: 11-01-2024 Alcoholic beverage intake Lifetime non-drinker (finding) [facility] Start: 07-21-2024 End: 01-16-2025 History of Social function [facility] Start: 07-21-2024 End: 01-16-2025 Tobacco use panel [facility] Start: 06-10-2024 [facility] Start: 2005 Sex assigned at Female [facility] Start: 03-09-2024 Gender identity Identifies as female gender (finding) [facility] History of tobacco use Passive smoker [facility] Start: 01-16-2022 End: 01-16-2025 Tobacco use and exposure Smokeless tobacco non-user [facility] Childcare Unknown [facility] Start: 2005 Sex assigned at Not on file [facility] Start: 03-11-2015 Sex Female (finding) [facility] NEGATED: Highlighted rowStart: NINF History of tobacco use Passive smoker [facility] Clinical Notes 07-21-2024 to 03-14-2025 Yamile Guidry CNM - 03/14/2025 9:00 AM EDTTelephone Encounter - Shadi Baum - 03/13/2025 4:25 PM EDTTelephone Encounter - Shadi Baum - 03/13/2025 4:25 PM Khadar Hanna RN - 03/07/2025 8:45 AM EDT Note Date & Type Note Facility 03-14-2025 History of Present illness Narrative Everett Vivar is here for visit. She [...] small blisters noted on left breast. No blood noted. She is wearing breast pads and she states they stick to the stuff coming out.,, She is 4 days and baby is cleft lip and palate. She is pumping and feeding bottle. Referral made with Sonya IBCLC at [facility] and I sent RX for All purpose nipple ointment to [facility] pharmacy. Contains Mupirocin 2% noah, betamethasone 0.1% noah, miconazole powder I spoke with Sonya and she will call patient and set up an appointment. ASSESSMENT/PLAN: There are no diagnoses linked to this encounter. Recheck in 4 weeks documented in this encounter [facility] 03-13-2025 Telephone encounter Note Maternal Medicine called to let you know Mom gave Vag-did well and d/c'd on the 11 - ty [facility] 03-13-2025 Miscellaneous Notes Maternal Medicine called to let you know Mom gave Vag-did well and d/c'd on the ty documented in this encounter [facility] 03-13-2025 Telephone encounter Note Summary: close episode of care Patient delivered on ( 03/10/25 ). See Center Report for baby information. Mother-Baby link completed. Outpatient referral placed according to recommendations. EPISODE of care resolved. [facility] 03-13-2025 Miscellaneous Notes Summary: close episode of care Patient delivered on ( 03/10/25 ). See Center Report for baby information. Mother-Baby link completed. Outpatient referral placed according to recommendations. EPISODE of care resolved. documented in this encounter [facility] 03-07-2025 History of Present illness Narrative [facility] High Risk Obstetrics Visit Return OB CC: Scheduled OB Visit None Problem List Active Problems Cleft lip and palate, , affecting care of mother, antepartum, single gestation Overview Sent to [facility] craniofacial -NICU consult scheduled for 02/07/25- done -Growth US every 4 weeks - Growth 01/23/25: cephalic, posterior placenta, MVP 3.8cm, EFW 1813g (15%), AC 13% - growth 02/21/25: vertex, MVP 4.6cm, EFW 24% Delivery 39-40 weeks care, subsequent in third trimester - Primary Overview Transfer from [place] Initial and 28 week cbc, one hr gct completed Good FM. Denies Bleeding, SROM. Irregular contractions Denies persistent N/V, constipation, heartburn, hematuria, dysuria Problem List reviewed and updated PMH/PSH/FH/Soc/Meds/Allergies Reviewed PE BP 122/68 Wt 89.9 kg (198 lb 3.2 oz) LMP 05/27/2024 BMI 34.00 kg/m Alert, NAD ABdomen: Soft, NT, nondistended Cervix: 0/thick/-3 Ep Specialist: Devora Wt Readings from Last 3 Encounters: 02/28/25 89.6 kg (197 lb 8 oz) (97%, Z= 1.90)* 02/21/25 87.1 kg (192 lb) (96%, Z= 1.81)* 02/07/25 86.8 kg (191 lb 6.4 oz) (96%, Z= 1.80)* * Growth percentiles are based on [facility] (Girls, 2-20 Years) data. See flowsheet Urine dipstick shows Protein N Glucose N Imp/Plan at 38w5d Patient Active Problem List Diagnosis Cleft lip and palate, , affecting care of mother, antepartum, single gestation care, subsequent in third trimester Elevated blood-pressure reading without diagnosis of hypertension care Labor warnings/ Movement discussed cleft lip/palate Serial growth scans--completed For IOL at 39 weeks ([place]) Form completed and process discussed. Note to patient: The Cures Act makes medical notes like these available to patients in the interest of transparency. However, be advised this is a medical document. It is intended as peer to peer communication. It is written in medical language and may contain abbreviations or verbiage that are unfamiliar. It may appear blunt or direct. Medical documents are intended to carry relevant information, facts as evident, and the clinical opinion of the practitioner. Patient here at 38w6d for routine HROB visit. Denies LOF, bleeding, contractions. Positive movement. SVE performed today. IOL scheduled for tomorrow 03/08 at 3pm. No other concerns this visit. Urine dip: moderate leuks documented in this encounter [employer] 02-28-2025 History of Present illness Narrative [facility] High Risk Obstetrics Return OB Visit CC: Scheduled OB Visit Subjective: at 37w6d Denies regular contractions, vaginal bleeding, loss of fluid. Reports active movement. Denies fever, chills, headache, visual changes, chest pain, shortness of breath, nausea, vomiting, dysuria. BPs at home less than 140/90. She did bring her log today. Heartburn has been well controlled with Pepcid. Problem List reviewed and updated PMH/PSH/FH/Soc/Meds/Allergies Reviewed PE: Vitals: 02/28/25 0827 BP: 130/64 Weight: 89.6 kg (197 lb 8 oz) Wt Readings from Last 3 Encounters: 02/28/25 89.6 kg (197 lb 8 oz) (97%, Z= 1.90)* 02/21/25 87.1 kg (192 lb) (96%, Z= 1.81)* 02/07/25 86.8 kg (191 lb 6.4 oz) (96%, Z= 1.80)* * Growth percentiles are based on [facility] (Girls, 2-20 Years) data. General: Alert, NAD HEENT: Atraumatic, normocephalic Abd: Soft, NT, nondistended, gravid Ext: no edema FHTs 133 See flowsheet A/P: at 37w6d Problem List Cleft lip and palate, , affecting care of mother, antepartum, single gestation - Primary Overview Sent to [facility] craniofacial -NICU consult scheduled for 02/07/25 -Growth US every 4 weeks - Growth 01/23/25: cephalic, posterior placenta, MVP 3.8cm, EFW 1813g (15%), AC 13% Delivery 39-40 weeks Elevated blood-pressure reading without diagnosis of hypertension Care - Labor precautions discussed - kick count advised Isolated Elevated Blood Pressure without HTN Diagnosis - Office BP today 130/64 - Continue to monitor BP twice daily at home and log - Reviewed preeclampsia signs and symptoms, call if BP persistently >140/90 Cleft lip and Palate - S/p craniofacial consult at [facility] - S/p NICU consult - Serial growth US -- last 02/21/25, nl interval growth and fluid - IOL at 39 weeks - SVE 0.5/50/-3; barraza score 4 - Induction request form filled RTC 1 week via HROB Latonia Dukes MD Legend [employer] Resident, PGY-4 Pt here for 37w6d HR visit States feeling good Feeling good movement No leaking of fluid or blood, headaches or vision changes Questions when induction date will be Pt states Pepcid is working well Urine [id number] Attending Attestation: I saw the patient. I participated in the critical/abreu portions of the service. I was directly involved in the management and treatment plan of the patient. I reviewed the resident's note. Additional Notes/Findings: Pt is 19yo at 37w 6d here for OB visit. She has no ob complaints and the baby is moving. She brought a BP log and these are wnl. BP normal today. Told her she could check once daily and instructed her to call if elevated. Reviewed s/sx labor and when to come in or call. GBS neg Planning for 39 wk induction, form filled out by resident. Fetus with cleft lip and palate NICU consult completed 02/07/25 USN (02/21/25) vertex, posterior placenta, MVP 4.6cm, EFW 24% RTO one week. Gunjan Lisa MD documented in this encounter [facility] 02-21-2025 Telephone encounter Note Duy, my name is Albertina. I am a acute care assistant with [facility] [employer]. I was calling to just verify that my member, Everett. Os it is O W S L E Y date of is [id number] was just calling to verify this is the office she is treated in for her O B provider. If you could call me back, I would appreciate it. My phone number is [phone]. Thank you. [facility] 02-21-2025 Miscellaneous Notes Duy, my name is Albertina. I am a acute care assistant with [facility] [employer]. I was calling to just verify that my member, Everett. Os it is O W S L E Y date of is [id number] was just calling to verify this is the office she is treated in for her O B provider. If you could call me back, I would appreciate it. My phone number is [phone]. Thank you. documented in this encounter [facility] 02-21-2025 History of Present illness Narrative [facility] High Risk Obstetrics Visit Return OB CC: Scheduled OB Visit None Problem List Active Problems Cleft lip and cleft palate, left - Primary Overview Sent to [facility] craniofacial -NICU consult scheduled for 02/07/25 -Growth US every 4 weeks - Growth 01/23/25: cephalic, posterior placenta, MVP 3.8cm, EFW 1813g (15%), AC 13% Delivery 39-40 weeks care, subsequent in third trimester Overview Transfer from [place] Initial and 28 week cbc, one hr gct completed Good FM. Denies Bleeding, SROM, contractions Denies persistent N/V, constipation, hematuria, dysuria Heartburn--yes all day Denies headache, visual change, RUQ/Upper abdominal pain Control Method plan: Problem List reviewed and updated PMH/PSH/FH/Soc/Meds/Allergies Reviewed PE BP 140/68 Wt 87.1 kg (192 lb) LMP 05/27/2024 BMI 32.94 kg/m Repeat 126/64 Alert, NAD ABdomen: Soft, NT, nondistended GBS obtained FHTs had US today Ep Specialist: Haley Wt Readings from Last 3 Encounters: 02/07/25 86.8 kg (191 lb 6.4 oz) (96%, Z= 1.80)* 01/24/25 86.6 kg (190 lb 14.4 oz) (96%, Z= 1.79)* 01/23/25 85.9 kg (189 lb 6.4 oz) (96%, Z= 1.77)* * Growth percentiles are based on CDC (Girls, 2-20 Years) data. See flowsheet Urine dipstick shows Protein Tr Glucose N Imp/Plan at 36w5d Patient Active Problem List Diagnosis Cleft lip and cleft palate, left care, subsequent in third trimester care GBs obtained labor warnings/ Movement discussed Isolated elevated blood ressure without hypertensive disorder diagnosis She has a bp cuff at home and will check her bp twice dailiy cleft lip/palate S/p craniofacial consult Serial growth US--last done 01/24/25 Scheduled for tomorrow Delivery at 39 weeks RTC 1 weeks via HROB Note to patient: The Cures Act makes medical notes like these available to patients in the interest of transparency. However, be advised this is a medical document. It is intended as peer to peer communication. It is written in medical language and may contain abbreviations or verbiage that are unfamiliar. It may appear blunt or direct. Medical documents are intended to carry relevant information, facts as evident, and the clinical opinion of the practitioner. Urine dip: trace protein, mod leuks Patient here for visit. States baby is moving well. C/O cramping and increase in vaginal discharge. Denies vaginal bleeding. Denies lower extremity swelling. Repeat blood pressure 126/64. Dr. Nancy Lopez notified. Blood pressure log given to patient to record blood pressures. documented in this encounter [employer] 02-07-2025 History of Present illness Narrative [facility] High Risk Obstetrics Visit Return OB CC: Scheduled OB Visit at 34w4d here for routine OB visit. Positive FM. Denies Bleeding, SROM, contractions. Complaining of morning cramps for the past 10 days that she describes as similar to menstrual cramps. Current Outpatient Medications on File Prior to Visit Medication Sig docusate sodium (COLACE) 100 mg capsule Take 1 capsule (100 mg total) by mouth in the morning and 1 capsule (100 mg total) before bedtime. ferrous sulfate 325 (65 FE) mg EC tablet Take 1 tablet (325 mg total) by mouth. no115/iron/folic acid ( 19 ORAL) Take by mouth. cyclobenzaprine (FLEXERIL) 10 mg tablet Take 1 tablet (10 mg total) by mouth 3 (three) times a day as needed for muscle spasms. (Patient not taking: Reported on 03/09/2024) ibuprofen (ADVIL,MOTRIN) 600 mg tablet Take 1 tablet (600 mg total) by mouth every 6 (six) hours as needed for pain. (Patient not taking: Reported on 07/30/2022) ibuprofen (MOTRIN) 600 mg tablet Take 1 tablet (600 mg total) by mouth every 6 (six) hours as needed for pain. (Patient not taking: Reported on 03/09/2024) No current facility-administered medications on file prior to visit. Patient Active Problem List Diagnosis Cleft lip and cleft palate, left ROS: HEENT: Denies H/A, visual changes RESP: Denies cough, SOB, wheeze CV: Denies chest pain, irregular rhythm ABD: Denies N/V, constipation. Complaining of heartburn : Denies hematuria, dysuria NEURO: Denies seizure, syncope Problem List reviewed and updated PMH/PSH/FH/Soc/Meds/Allergies Reviewed PE Alert, NAD Abdomen: Soft, NT, nondistended FHTs 145 Wt Readings from Last 3 Encounters: 02/07/25 86.8 kg (191 lb 6.4 oz) (96%, Z= 1.80)* 01/24/25 86.6 kg (190 lb 14.4 oz) (96%, Z= 1.79)* 01/23/25 85.9 kg (189 lb 6.4 oz) (96%, Z= 1.77)* * Growth percentiles are based on [facility] (Girls, 2-20 Years) data. See flowsheet Problem List Digestive Cleft lip and cleft palate, left - Primary Overview Sent to [facility] craniofacial -NICU consult scheduled for 02/07/25 -Growth US every 4 weeks - Growth 01/23/25: cephalic, posterior placenta, MVP 3.8cm, EFW 1813g (15%), AC 13% Delivery 39-40 weeks ASSESSMENT & PLAN 19 y.o. at 34w4d presents for routine HROB visit. cleft lip and palate S/p MFM visit 01/23 Last MFM US 01/23 Had NICU consult today F/u growth US in 2 weeks RTC 2 weeks Case discussed with Dr. Rosalie Low MD Legend Maker Resident, PGY-1 Pt here for 34w6d HR visit States feeling good Pt states has been having cramping - like period cramp - present x 1 1/2 weeks Feeling good movement No leaking of fluid or blood, no headaches or vision issues No other concerns for today Attending Attestation: I saw the patient. I performed the critical/abreu portions of the service. I was directly involved in the management and treatment plan of the patient. I reviewed the resident's note. Additional Notes/Findings: at 34w6d - cleft lip/palate -growth US next visit RTC 2w Estefani Wiggins DO documented in this encounter [facility] 02-07-2025 History of Present illness Narrative [facility] CONSULT NOTE Dear Dr. De La Vega I spoke to Ms. Vivar via phone consultation to discuss potential delivery of a fetus with concern for left-sided cleft lip/palate. She is a 19 y.o. who presents with a fetus with concern for left-sided cleft lip/palate. The mother has met with [facility] during this . I reviewed the ultrasound findings and the potential differential diagnosis with Ms. Vivar. She had a sound understanding the results. I discussed further expected course of management for the fetus after . We discussed about NICU team attending delivery. NICU team composition at delivery, delivery stabilization and thermoregulation were reviewed. We will update them as soon after delivery once baby gets stabilized The cleft lip and palate in itself should not be a reason to come to the NICU or have problems at the time of delivery. I informed the mom that if the baby does well in the delivery room then the baby will go to regular nursery and speech therapy can help with the feeding of the baby with specialized bottles or nipples. It looks like mom was already pretty conversant with this concept. If baby does well in the nursery, then the baby will be discharged at home and will follow-up with multidisciplinary craniofacial team in [place] will plan for definitive repair at a later stage. If the baby fails to establish adequate oral feeds in the nursery then the baby maybe admitted in the NICU for consideration of gavage feeding. I encouraged mom for breast feeding and discussed pumping and storage of expressed breast milk. NICU family participation, visitation policies and infant/parent banding procedure were all explained. I did explain the general discharge criterias for NICU including but not limited to feedings, respiratory status, clinically significant events, temperature regulation etc. Mom understand that the 's discharge plan will be individualized based on the baby's clinical course. Mom verbalized understanding and all questions were answered. I encouraged the family to contact the NICU with any further questions. This consult was conducted via phone which lasted 30 minutes, with greater than 50% of that time in face to face conversation discussing the complexity of care her will require after delivery. Patel Ellison MD, MPH 02/07/25 documented in this encounter [facility] 02-05-2025 History of Present illness Narrative Summary: Center Summary as of 02/05/25 at 34.4 weeks Patient Demographics Patient Name Everett Vivar Sex Female Age 8 2005 (19 yrs) Address [address] [place] [address] (Home) *Preferred* Second Parent's Information Second Parent's Name: Yeison Other Patient Names Aliases: Preferred Name: Center Report Clinical Documentation Diagnosis Summary: Cleft Lip & Palate WALTER: 03/15/2025 GA: 34w4d : 2 Parity: 0 Term: 0 : 0 AB: 1 Livin Genetic Testing: cffDNA - ALEKSANDRA Pertinent Maternal Information: Migraines Maternal Occupation: Second Parent Occupation: Interventions: Referring Information Primary MFM: Primary OBGYN: Ken De La Vega MD Delivery Hospital: [facility] Information Nurse Coordinator: Tatianna Oswald RN Ped Specialty/Provider: Matthew Roberts MD - Plastic Surgery/Cleft Board Date: Follow Up: Classification: Craniofacial Imaging [facility] at 26.4 weeks EFW-927g (31%) MARTY-normal amount right cleft lip and palate Echo Summary: MRI Summary: Delivery Information Delivery Plans: Skin to Skin: Yes Breast Feed Eligible: Yes Plan Disposition: WBN Comment: Baby girl named Fatou Genetics: Plan: Craniofacial Clinic appointment within a week after discharge from [facility]. Call or to schedule. General Comments: Baby MRN: Baby : GA at : Mode of Delivery: Baby Diagnosis: Baby Disposition: PRIVATE AND CONFIDENTIAL: All patient information is privileged and confidential. It can only be accessed and utilized by individuals directly involved in the patient's care and treatment at [facility]. documented in this encounter [facility] 01-24-2025 History of Present illness Narrative Pt here for [facility] JAZMYNE appt @ 32w6d Pt endorses + FM Pt denies LOF, VB, or CTX Denies any current complaints Urine Dip: Moderate [facility] High Risk Obstetrics -Initial Visit at 32w6d Patient Active Problem List Diagnosis Cleft lip and cleft palate, left Good FM. Denies ctx, VB, LOF. She is being sent to high-risk OB due to cleft lip and palate She has already met with initial right [facility] craniofacial surgeon's She is scheduled to meet with NICU 02/07/2025 ROS: HEENT: Denies H/A, visual changes RESP: Denies cough, SOB, wheeze CV: Denies chest pain, irregular rhythm ABD: Denies N/V, constipation, heartburn : Denies hematuria, dysuria NEURO: Denies seizure, syncope Wt Readings from Last 3 Encounters: 01/24/25 86.6 kg (190 lb 14.4 oz) (96%, Z= 1.79)* 01/23/25 85.9 kg (189 lb 6.4 oz) (96%, Z= 1.77)* 12/11/24 80.7 kg (177 lb 14.6 oz) (94%, Z= 1.56)* * Growth percentiles are based on CDC (Girls, 2-20 Years) data. See flowsheet -- reviewed Alert, NAD Abd: soft, NT 28 week labs: Hgb 10.7- on oral iron Normal glucola Problem List Digestive Cleft lip and cleft palate, left - Primary Overview Sent to [facility] craniofacial -NICU consult scheduled for 02/07/25 -Growth US every 4 weeks - Growth 01/23/25: cephalic, posterior placenta, MVP 3.8cm, EFW 1813g (15%), AC 13% Delivery 39-40 weeks Needs seral growth US RTC 2w [facility] History of Present illness Narrative Headache/epigastric pain/blurry vision/swelling? No Cramping/contractions? No Spotting or vaginal bleeding? No Loss or gush of fluid like your water may have broken? No Recent ER visits or hospitalizations? No Any concerns that you would like me to mention to the provider today? No REASON FOR OFFICE VISIT: Risht sided-sided cleft lip and palate HISTORY OF PRESENT ILLNESS: Everett Vivar is a pleasant 19 y.o. G to P0 010 at 32w5d due on Estimated Date of Delivery: 03/15/25 . has been complicated with right-sided cleft lip and palate Currently the patient has no complaints. The patient denies nausea, vomiting, abdominal pain, vaginal bleeding, SOB or chest pain. Patient Active Problem List Diagnosis Cleft lip and cleft palate, left ALLERGIES: Allergies Allergen Reactions Grass Pollen Shrimp CURRENT MEDICATIONS: Current Outpatient Medications: no115/iron/folic acid ( 19 ORAL), Take by mouth., Disp: , Rfl: cyclobenzaprine (FLEXERIL) 10 mg tablet, Take 1 tablet (10 mg total) by mouth 3 (three) times a day as needed for muscle spasms. (Patient not taking: Reported on 03/09/2024), Disp: 30 tablet, Rfl: 0 ibuprofen (ADVIL,MOTRIN) 600 mg tablet, Take 1 tablet (600 mg total) by mouth every 6 (six) hours as needed for pain. (Patient not taking: Reported on 07/30/2022), Disp: 30 tablet, Rfl: 0 ibuprofen (MOTRIN) 600 mg tablet, Take 1 tablet (600 mg total) by mouth every 6 (six) hours as needed for pain. (Patient not taking: Reported on 03/09/2024), Disp: 30 tablet, Rfl: 0 No past medical history on file. REVIEW OF SYSTEMS: Head and Neck: Negative for any dizziness and headaches. Cardiovascular and Respiratory System: Denies any chest pain, shortness of breath, and coughing. Abdominal and System: Denies any abdominal pain, nausea, vomiting, vaginal bleeding, and vaginal discharge REVIEW OF ULTRASOUND. Pertinent Ultrasound findings are see report. PHYSICAL EXAMINATION: BP 115/68 Pulse 103 Ht 162.6 cm (5' 4.02 ) Wt 85.9 kg (189 lb 6.4 oz) LMP 05/27/2024 BMI 32.49 kg/m . Gravid abdomen, Respirations not labored. Normal gait well oriented in time place and person. RECOMMENDATION: 1. Normal interval growth. 2. Right-sided cleft lip and palate 3. Complete transfer of care to the [facility] and delivery at [facility]. 4. [facility] NICU consult in the near future. 5. Vaginal delivery is to be anticipated with C section reserve for routine obstetrical indications. 6. Follow-up growth ultrasound in 4 weeks at [place] for [facility] office 7. Patient does not have any future appointment scheduled with us. Thank you for allowing me to participate in Everett Vivar care. If there are any questions, please do not hesitate to call me. Sincerely, KEN DE LA VEGA MD documented in this encounter [facility] History of Present illness Narrative Subjective No chief complaint on file. Everett Vivar is a 19 y.o. at 28w5d with a working estimated date of delivery of 03/16/2025, by Ultrasound who presents for a routine visit. She denies vaginal bleeding, leakage of fluid, decreased movements, or contractions. OB History Para Term AB Living 2 1 0 SAB IAB Ectopic Multiple Live Births 1 0 # Outcome Date GA Lbr Brandan/2nd Weight Sex Type Anes PTL Lv 2 Current 1 SAB Her is complicated by: heart burn. Pt states she has been taking tums and its not helping any more. Pt will be a complete transfer of care to [place] due to cleft lip. Pt has a consult appt in [place] coming up to discuss surgery after baby is born. The following portions of the chart were reviewed this encounter and updated as appropriate: Objective Physical Exam Weight: 183 lb Expected Total Weight Gain: 15 lb-25 lb Pregravid BMI: 26.96 BP: 118/80 Urine protein Urine glucose Labs: reviewed Imaging Assessment/Plan Diagnoses and all orders for this visit: Encounter for care of first , third trimester Screening for diabetes mellitus (DM) - GLUCOSE, GESTATIONAL SCREEN (50G)-135 CUTOFF; Future Screening for iron deficiency anemia - CBC; Future Congenital anomaly Continue vitamin. Labs reviewed. Rhogam- not needed as Patient educated on heartburn and acid reflux in . We discussed elevating the head of the bed slightly, chewing gum during the day, tums as needed and she can also try liquid maalox or mylanta to help as it would coat the stomach. PVU and states she will try some of those things. She will let me or provider in [place] know if it gets worse. Patient is a complete transfer of care due to baby anomalies-cleft lip, this is her last appointment with me. She does know if [place] needs anything from us to help with care she can always call us. documented in this encounter [facility] 12-11-2024 History of Present illness Narrative Headache/epigastric pain/blurry vision/swelling? No Cramping/contractions? No Abnormal vaginal discharge? No Spotting/vaginal bleeding? No Loss or gush of fluid like your water may have broken? No Do you have cats at home? Yes Do you change the litter box (reason: risk of toxoplasmosis)? No Genetic testing done this here or other office? No Have you been seen here at [facility] in a previous ? No Recent ER visits or hospitalizations? No Bring blood sugar log or meter with you today? (Please bring them with you for every visit at [facility]) N/A Flu vaccine (Jun-September)? N/A Any concerns that you would like me to mention to the provider today? No REASON FOR CONSULTATION: Left-sided cleft lip and palate. HISTORY OF PRESENT ILLNESS: Everett Vivar is a pleasant 19 y.o. . at 26w4d due on Estimated Date of Delivery: 03/15/25 . Patient was seen today due to the following 1. Left-sided cleft lip and palate. 2. Maternal THC smoking. Smoking cessation advised. Currently the patient has no complaints. The patient denies nausea, vomiting, abdominal pain, vaginal bleeding, SOB or chest pain. Patient's PMH/PSH,SH,PSYCH Hx, MEDs, ALLERGIES, and ROS were all reviewed and updated in the appropriate sections. Patient Active Problem List Diagnosis Cleft lip and cleft palate, left No past medical history on file. PAST OBSTETRICAL HISTORY: OB History 2 Para Term AB 1 Living SAB 1 IAB Ectopic Multiple Live Births SURGICAL HISTORY: No past surgical history on file. ALLERGIES: Allergies Allergen Reactions Grass Pollen Shrimp CURRENT MEDICATIONS: Current Outpatient Medications: no115/iron/folic acid ( 19 ORAL), Take by mouth., Disp: , Rfl: cyclobenzaprine (FLEXERIL) 10 mg tablet, Take 1 tablet (10 mg total) by mouth 3 (three) times a day as needed for muscle spasms. (Patient not taking: Reported on 12/11/2024), Disp: 30 tablet, Rfl: 0 ibuprofen (ADVIL,MOTRIN) 600 mg tablet, Take 1 tablet (600 mg total) by mouth every 6 (six) hours as needed for pain. (Patient not taking: Reported on 12/11/2024), Disp: 30 tablet, Rfl: 0 ibuprofen (MOTRIN) 600 mg tablet, Take 1 tablet (600 mg total) by mouth every 6 (six) hours as needed for pain. (Patient not taking: Reported on 12/11/2024), Disp: 30 tablet, Rfl: 0 FAMILY/GENETIC HISTORY: No family history of VTE, cardiac defects and mental retardation . RECENT HOSPITALIZATION: none I did review all the labs results available in addition to labs which were ordered by the primary care physician, and the other consultants, we search on [employer] and all the available care everywhere epic I did review all the imaging studies of the patient available on EMR, ordered by the primary care physician and the other licensed tax consultant HABITS: Patient activity no restrictions, diet no restrictions REVIEW OF SYSTEM: Head and Neck: Negative for any dizziness and headaches. Cardiovascular and Respiratory System: Denies any chest pain, shortness of breath, and coughing. Abdominal and System: Denies any abdominal pain, nausea, vomiting, vaginal bleeding, and vaginal discharge PHYSICAL EXAMINATION: BP 122/82 Pulse 87 Ht 162.6 cm (5' 4.02 ) Wt 80.7 kg (177 lb 14.6 oz) LMP 05/27/2024 BMI 30.52 kg/m . Gravid abdomen, Respirations not labored. Well oriented time place person, normal gait MEDICAL DECISION MAKING DISCUSSION: The lip forms between the fourth and seventh weeks of . During development, body tissue and special cells from each side of the head grow toward the center of the face. They join together to form facial features like the lips and mouth. A cleft lip happens if the tissue making up the upper lip doesn't join completely before , leaving an opening. The opening can be small, or it can go through the lip into the nose.A cleft lip can be on one or both sides of the lip or in the middle of the lip. Children with a cleft lip also can have a cleft palate. We further discussed that cleft lip and palate fetuses usually need to be delivered at a tertiary care center so that appropriate specialties or consulted so the feeding is not delayed. Cleft lip and palate are not conservative management and therefore will require surgery after . RECOMMENDATION: 1. Left-sided cleft lip and palate was seen on today's ultrasound. 2. Patient underwent cell free DNA testing today. 3. Follow-up in 6 weeks for completion of targeted anatomy and office visit. 4. Complete transfer of care to the [facility] between 32-34 weeks gestation. 5. NICU consult in the 3rd trimester. 6. Pediatric plastic surgery consult in the 3rd trimester. 7. Delivery 39-40 weeks gestation at [facility]. 8. Vaginal delivery is to be anticipated with C section reserve for routine obstetrical indications. DISPOSITION: At this point the patient is in complete care of her manager consumer insights. Patient does have ultrasound office visit scheduled with us. Thank you for allowing me to participate in Everett Vivar . If there any questions please do not hesitate to contact us. Sincerely, KEN DE LA VEGA MD Blood drawn for [facility] cell-free DNA testing. Patient tolerated well. documented [facility] 12-11-2024 Miscellaneous Notes Addended by: HEATHER LOMAS on: 12/11/2024 01:27 PM Modules accepted: Orders documented in this encounter [facility] 12-11-[facility]24 Note Addended by: HEATHER LOMAS on: 12/11/2024 01:27 PM Modules accepted: Orders [facility] 11-29-2024 History of Present illness Narrative Subjective No chief complaint on file. Everett Vivar is a 19 y.o. at 24w5d with a working estimated date of delivery of 03/16/2025, by Ultrasound who presents for a routine visit. She denies vaginal bleeding, leakage of fluid, decreased movements, or contractions. OB History Para Term AB Living 2 1 0 SAB IAB Ectopic Multiple Live Births 1 0 # Outcome Date GA Lbr Brandan/2nd Weight Sex Type Anes PTL Lv 2 Current 1 SAB Her is complicated by: possible cleft lip baby- [facility] referral The following portions of the chart were reviewed this encounter and updated as appropriate: Objective Physical Exam Weight: 173 lb Expected Total Weight Gain: 15 lb-25 lb Pregravid BMI: 26.96 BP: 110/68 Urine protein-negative Urine glucose-negative Labs: reviewed Imaging Assessment/Plan Continue vitamin. Labs reviewed. Rhogam not needed patient is A+ positive GTT at 28 weeks Follow up in 4 weeks for a routine visit. documented in this encounter [facility] 11-03-2024 Telephone encounter Note Vm left at 11:59 am De, this is a maternal fal medicine office at [facility]. I am calling about an order. We got over for [place]rett [place] , [id number]. The freight loading supervisor and the looked at it. We need all of the records that we do not have. So we are Going to need the ultrasound and any just genetic screening that she had. Hopefully, if you could gather those in facts them to us, I will have them look at him again. [phone] for my fax machine. And again, this is [facility]. Maternal medicine. If you need to call me back. [phone], option 3. Thanks. [facility] 11-03-2024 Miscellaneous Notes Vm left at 11:59 am De, this is a maternal fal medicine office at [facility]. I am calling about an order. We got over for an Everett [place] , [id number]. The freight loading supervisor and the drRani looked at it. We need all of the records that we do not have. So we are Going to need the ultrasound and any just genetic screening that she had. Hopefully, if you could gather those in facts them to us, I will have them look at him again. [phone] for my fax machine. And again, this is [facility]. Maternal medicine. If you need to call me back. [phone], option 3. Thanks. documented in this encounter [facility] 11-01-2024 History of Present illness Narrative Subjective No chief complaint on file. Everett Vivar is a 19 y.o. at 20w5d with a working estimated date of delivery of 03/16/2025, by Ultrasound who presents for a routine visit. She denies vaginal bleeding, leakage of fluid, decreased movements, or contractions. OB History Para Term AB Living 2 1 SAB IAB Ectopic Multiple Live Births 1 # Outcome Date GA Lbr Brandan/2nd Weight Sex Type Anes PTL Lv 2 Current 1 SAB Her is complicated by: left side pain The following portions of the chart were reviewed this encounter and updated as appropriate: Objective Physical Exam weight: 168 lb Expected Total Weight Gain: 15 lb-25 lb Pregravid BMI: 26.96 BP: 110/70 Urine protein Urine glucose Labs: reviewed Imaging Assessment/Plan Diagnoses and all orders for this visit: Encounter for care of first , second trimester ([facility]) related condition in second trimester ([facility]) Preliminary report for US tech is cleft lip/palate will wait for radiology confirmation and then refer to M Continue vitamin. Labs reviewed. Rhogam GTT . Follow up in 2 weeks for a routine visit. documented in this encounter [facility] 10-04-2024 History of Present illness Narrative Subjective No chief complaint on file. Everett Vivar is a 19 y.o. at 16w5d with a working estimated date of delivery of 03/16/2025, by Ultrasound who presents for a routine visit. She denies vaginal bleeding, leakage of fluid, decreased movements, or contractions. OB History Para Term AB Living 2 1 SAB IAB Ectopic Multiple Live Births 1 # Outcome Date GA Lbr Brandan/2nd Weight Sex Type Anes PTL Lv 2 Current 1 SAB Her is complicated by: dizzy spells and feeling like she is going to pass out but hasn't actually passed out. Pt states she is eating regular meals and drinking water The following portions of the chart were reviewed this encounter and updated as appropriate: Objective Physical Exam weight: 161 lb Expected Total Weight Gain: 15 lb-25 lb Pregravid BMI: 26.96 BP: 118/78 Urine protein-negative Urine glucose-negative Labs: reviewed Imaging Assessment/Plan Diagnoses and all orders for this visit: Nonspecific dizziness Encounter for care of first , second trimester related condition in second trimester - US OB 14+ weeks anatomy scan; Future Continue vitamin. Labs reviewed Rhogam not needed A+ positive GTT at 28 weeks Follow up in 4 weeks for a routine visit. documented in this encounter [facility] 09-06-2024 History of Present illness Narrative Subjective No chief complaint on file. Everett Vivar is a 19 y.o. at 12w5d with a working estimated date of delivery of 03/16/2025, by Ultrasound who presents for a routine visit. She denies vaginal bleeding, leakage of fluid, decreased movements, and contractions. OB History Para Term AB Living 2 1 SAB IAB Ectopic Multiple Live Births 1 # Outcome Date GA Lbr Brandan/2nd Weight Sex Type Anes PTL Lv 2 Current 1 SAB Her is complicated by: The following portions of the chart were reviewed this encounter and updated as appropriate: Objective Physical Exam weight: 160 lb, Pregravid BMI: 26.96 Expected Total Weight Gain: 15 lb-25 lb BP: 118/80 Labs Imaging Assessment/Plan Diagnoses and all orders for this visit: Encounter for care of first , first trimester Urine protein Urine glucose Continue vitamin. Labs reviewed. Order placed for anatomy scan at 20 weeks. States nausea is better and she's feeling better and able to eat more Follow up in 4 weeks for a routine visit. documented in this encounter [facility] 08-09-2024 History of Present illness Narrative Subjective No chief complaint on file. Everett Vivar is a 19 y.o. at 8w5d with a working estimated date of delivery of 03/16/2025, by Ultrasound who presents for a routine visit. She denies vaginal bleeding, leakage of fluid, decreased movements, and contractions. OB History Para Term AB Living 2 1 SAB IAB Ectopic Multiple Live Births 1 # Outcome Date GA Lbr Brandan/2nd Weight Sex Type Anes PTL Lv 2 Current 1 SAB Her is complicated by: nausea The following portions of the chart were reviewed this encounter and updated as appropriate: Objective Physical Exam weight: 160 lb, Pregravid BMI: 26.96 Expected Total Weight Gain: 15 lb-25 lb BP: 110/70 Labs Imaging Assessment/Plan Diagnoses and all orders for this visit: Encounter for supervision of other normal , first trimester examination or test, positive result - Hepatitis B surface antigen; Future - Rubella antibody, IgG; Future - CBC; Future - Antibody screen; Future - RPR; Future - Hemoglobin A1c; Future - TSH W/REFLEX TO FT4; Future - HIV-1 and HIV-2 antibodies - ABO/Rh - DRUG TOX MONITORIGN 6 W/ CONF,URINE; Future - Hepatitis C antibody - Urine culture; Future - URINALYSIS MICROSCOPIC; Future - C. trachomatis / N. gonorrhoeae, DNA probe; Future Urine protein-negative Urine glucose-negative Continue vitamin. Labs reviewed. Order placed for anatomy scan at 20 weeks. Zofran RX sent to patient c/o increased nausea Follow up in 4 weeks for a routine visit. documented in this encounter [facility] 07-21-2024 History of Present illness Narrative Subjective Everett Vivar is a 19 y.o. at 14w5d with a working estimated date of delivery of 03/16/2025, by Ultrasound who presents for an initial visit. This is planned. No care count team clerk to display OB History Para Term AB Living 2 1 SAB IAB Ectopic Multiple Live Births 1 # Outcome Date GA Lbr Brandan/2nd Weight Sex Type Anes PTL Lv 2 Current 1 SAB Her is complicated by: Patient referred by Gynecology History Last Pap n/a The following portions of the chart were reviewed this encounter and updated as appropriate: @RULESMARTLINK([id number],TOBYESPROV )@@RULESMARTLINK([id number],ALGYESPR OV)@@RULESM ARTLINK([id number],MEDYESPROV)@@RULE SMARTLINK([id number],PROBYESPROV)@@R ULLYLETLIN K([id number],MHYESPROV)@@RULESMARTLI NK([id number],SHYESPROV)@@RULESMARTL INK([id number], FHYESPROV)@@RULESMARTLINK([id number] ,SOHYESPROV)@ Review of Systems Objective Physical Exam weight: 162 lb Expected Total Weight Gain: 15 lb-25 lb Pregravid BMI: 26.96 Urine protein-negative Urine glucose-negative Labs Assessment/Plan Blue education folder given. Patient educated on safe medication list. Genetic testing information given. Discussed the do's and don'ts in the blue folder. We discussed labs and what we draw and what we are testing for. Patient is also informed that we do a urine drug test. Patient also given office phone number and [facility] number to call in case of an emergency or after hours needs. PVU and all questions answered. We did discuss place of delivery. Patient should plan to go to [facility] for all services unless an emergency and they need to go to the closest ER. We can make other arrangements possibly if patient would like to deliver at another facility but I did explain I am now at [facility] 100% of the time and would like to do all deliveries there. documented in this encounter [facility] Healthcare Evaluation note Diagnosis Encounter for care of first , first trimester- Primary documented [facility] this encounter [facility]* Diagnosis Encounter for supervision of other normal , first trimester- Primary examination or test, positive result documented in this encounter [facility]* Diagnosis examination or test, positive result documented in this encounter [facility]* Diagnosis Nonspecific dizziness- Primary Encounter for care of first , second trimester related condition in second trimester documented in this encounter [facility]* Diagnosis Encounter for care of first , second trimester- Primary Congenital anomaly Unspecified congenital anomaly documented [facility]* Diagnosis Cleft lip and cleft palate, left- Primary [facility] Diagnosis Cleft lip and cleft palate, left- Primary [facility] Diagnosis Encounter for care of first , third trimester- Primary Screening for diabetes mellitus (DM) Screening for diabetes mellitus Screening for iron deficiency anemia Congenital anomaly Unspecified congenital anomaly documented in this encounter [facility]* Diagnosis Cleft lip and cleft palate, left- Primary Abnormal ultrasonic finding on screening of mother, antepartum [facility]* Diagnosis Cleft lip and cleft palate, left- Primary [facility]* Diagnosis Cleft lip and cleft palate, left- Primary documented [facility]* Diagnosis cleft lip and palate affecting antepartum care of mother, single or unspecified fetus- Primary care, subsequent in third trimester [facility]* Diagnosis Encounter for care of first , second trimester ([facility]-HCC)- Primary related condition in second trimester ([facility]-HCC) documented [facility]* Diagnosis Cleft lip and palate, , affecting care of mother, antepartum, single gestation- Primary Elevated blood-pressure reading without diagnosis of hypertension Elevated blood pressure reading without diagnosis of hypertension , supervision for, high-risk, third trimester [facility] Diagnosis Cleft lip and palate, , affecting care of mother, antepartum, single gestation- Primary care, subsequent in third trimester [facility] Diagnosis problem- Primary Sore nipples due to ([facility]) documented in this encounter [facility]InstructionsNot on filedocumented in this encounterPro[facility] SystemInstructionsNot on filedocumented in this encounterProSal[facility] SystemInstructionsNot on filedocumented in this encounterE[facility] SystemInstructionsNot on filedocumented in this encounterE[facility] InstructionsNot on filedocumented in this encounterEly[facility] InstructionsNot on filedocumented in this encounterE[facility] InstructionsNot on filedocumented in this encounterEly[facility] Summary Purpose Family History No Family History Records FoundNo Family History Records FoundNo Family History Records FoundNo Family History Records Found Advance Directives No Advanced Directives Records FoundNo Advanced Directives Records FoundNo Advanced Directives Records FoundNo Advanced Directives Records Found Additional Source Comments INFORMATION SOURCE (unrecogn ized section and content) DATE CREATED AUTHOR 03/11/2024 [facility] DATE CREATED AUTHOR AUTHOR'S ORGANIZ ATION 12/31/2024 [facility] DATE CREATED AUTHOR AUTHOR'S ORGANIZ ATION 01/19/2025 [facility] DATE CREATED AUTHOR AUTHOR'S ORGANIZ ATION 03/12/2025 [facility] Care Teams (unrecognized sec tion and content) Canceling Machine Operator Relationship Specialty [place] [address] [place] [id number] PCP - General Pediatrics 12/09/23 Canceling Machine Operator Relationship Specialty Start Date End Date Maggie Marlow MD [address] [place] [id number] PCP - General Pediatrics 12/09/23 Canceling Machine Operator Relationship Specialty Start Date End Date Maggie Marlow MD [address] [place] [id number] PCP - General Pediatrics 12/09/23 Canceling Machine Operator Relationship Specialty Start Date End Date Maggie Marlow MD [address] [place] [id number] PCP - General Pediatrics 12/09/23 Canceling Machine Operator Relationship Specialty Start Date End Date Yamile Guidry [address] [place] [id number] PCP - General Obstetrics/Gynecology 12/21/24 Canceling Machine Operator Relationship Specialty Start Date End Date Maggie Marlow MD [address] [place] [id number] PCP - General Pediatrics 12/09/23 Canceling Machine Operator Relationship Specialty Start Date End Date Maggie Marlow MD [address] [place] [id number] PCP - General Pediatrics 12/09/23 Canceling Machine Operator Relationship Specialty Start Date End Date Maggie Marlow MD [address] [place] [id number] PCP - General Pediatrics 12/09/23 Canceling Machine Operator Relationship Specialty Start Date End Date Maggie Marlow MD [address] [place] [id number] PCP - General Pediatrics 12/09/23 Canceling Machine Operator Relationship Specialty Start Date End Date Maggie Marlow MD [address] [place] [id number] PCP - General Pediatrics 12/09/23 Canceling Machine Operator Relationship Specialty Start Date End Date Maggie Marlow MD [address] [place] [address] PCP - General Pediatrics 12/09/23 Reason for Visit (unrecogniz ed section and content) Reason Comments Suspected Cleft Lip Reason Comments Initial Visit [id number] Specialty Diagnoses / Procedures Referred By Contac t Referred To Contact Obstetrics & Gynecology / Obstetrics and Gynecology Diagnoses Abnormal ultrasonic finding on screening of mother, antepartum Ken De La Vega MD [address] [place] [address] Phone: tel: fax: Estefani Wiggins, DO [address] [place] [address] Phone: tel: fax: Referral ID Status Reason Start Date Expiration Date Visits Requested Visits Authorized [id number] Pending Review Specialty Services Required 01/10/2025 01/10/2026 1 1 Reason Comments Coordination Of Care Reason Comments High Risk Gestation Reason Comments Cleft Lip/Palate Reason Comments High Risk Gestation Reason Comments Routine Visit Reason Onset Date Comments Coordination Of Care 03/13/2025 FOR RECORDS PERTAINING TO PATIENTS WHO ARE OR HAVE BEEN ENROLLED IN A CHEMICAL DEPENDENCY/SUBSTANCEABUSE PROGRAM, SOME INFORMATION MAY BE OMITTED. This clinical summary was aggregated from multiple sources. Caution should be exercised in using it in the provision of clinical care. This summary normalizes information from multiple sources, and as a consequence, information in this document may materially change the coding, format and clinical context of patient data. In addition, data may be omitted in some cases. CLINICAL DECISIONS SHOULD BE BASED ON THE PRIMARY CLINICAL RECORDS. [facility]. provides no warranty or guarantee of the accuracy or completeness of information in this document.
--- NOTE | 2025-03-15 13:46 | PC.NURSE ---
Everett arrives for support. Is 5 days post vaginal delivery, pumping exclusively for daughter who has cleft lip and palate. Everett has sore nipples, red in color and blistered areas on both tips. Discussed pumping, flange fit, and vacuum for pumping. States sized herself prior to delivery at 15mm, currently in engorgement and measuring 17mm flange fit. Bilateral breasts firm and full, lump areas towards axilla. Shown breast massage, warm compresses and hands on pumping for better emptying of breasts. Reviewed flange fit should be comfortable and vacuum should produce gentle tug, not pain. Verbalized understanding. States will play with cycles, pump vacuum and massage for best comfort and milk output. Given tea bags, hydrogels, breast shells for breast care. Will slate picker APNO for nipple care. Given handout for same. Will return 03/26/2025 for follow up care. No further concerns, leaves ambulatory for home.
== END 2025-03-15 14:01 | disposition home or self-care (01) ==
LOC: FBCO 08:22
PROVIDERS: Visit Provider Midwife
DX: Z39.1 Encounter for care and examination of lactating mother (principal)